=== PATIENT | male | born 1985 | race Caucasian/White ===

== ENCOUNTER 2016-09-13 10:40 | Inpatient (IN) | payer OTHER ==
[~2016-09-13] VITALS: Ht 182.9 cm; Wt 97.6 kg
[2016-09-13 11:20] LABS: MEAN CORPUSCULAR HEMOGLOBIN 30.2 pg (27.0-33.0); MEAN CORPUSCULAR HGB CONC 35.4 g/dl (32.0-36.5); MEAN CORPUSCULAR VOLUME 85.4 fl (80.0-96.0); RED CELL DISTRIBUTION WIDTH 12.7 % (11.5-14.5); WHITE BLOOD COUNT 12.4 K/mm3 (4.0-10.0)
[2016-09-13 11:47] LABS: ALBUMIN 4.6 GM/DL (3.2-5.2); ALBUMIN/GLOBULIN RATIO 1.48 (1.00-1.93); ALKALINE PHOSPHATASE 74 U/L (45-117); ALT/SGPT 33 U/L (12-78); ANION GAP 9 MEQ/L (8-16); AST/SGOT 30 U/L (15-37); BILIRUBIN,DIRECT 0.2 MG/DL (0.0-0.2); BILIRUBIN,TOTAL 1.1 MG/DL (0.2-1.0); BLOOD UREA NITROGEN 16 MG/DL (7-18); CARBON DIOXIDE LEVEL 28 MEQ/L (21-32); CHLORIDE LEVEL 105 MEQ/L (98-107); CREATININE FOR GFR 1.09 MG/DL (0.70-1.30); GLOMERULAR FILTRATION RATE > 60.0 (>60); GLUCOSE, FASTING 96 MG/DL (70-105); POTASSIUM SERUM 3.8 MEQ/L (3.5-5.1); SODIUM LEVEL 142 MEQ/L (136-145); TOTAL PROTEIN 7.7 GM/DL (6.4-8.2)
[2016-09-13 13:01] LABS: AMPHETAMINES LEVEL URINE POSITIVE (NEGATIVE); BENZODIAZEPINES URINE NEGATIVE (NEGATIVE); COCAINE METABOLITE URINE NEGATIVE (NEGATIVE); CONTROL LINE INT CTR LINE PRESENT; METHADONE URINE NEGATIVE (NEGATIVE); OPIATES URINE NEGATIVE (NEGATIVE); TRICYCLIC ANTIDEPRESS URINE NEGATIVE (NEGATIVE)
[2016-09-13] MEDS ORDERED: ACETAMINOPHEN 325 MG TAB As Ordered ONE (22:11)
[2016-09-14] MEDS ORDERED: ACETAMINOPHEN 325 MG TAB As Ordered ONE (05:48)
[2016-09-14] MEDS ORDERED: NICOTINE 21MG/24HR 1 EA TRANSDERMAL As Ordered ONE (13:18)
[2016-09-14] MEDS ORDERED: NAPR250T2 PO (13:30)
--- NOTE | 2016-09-14 16:21 | EDDOCDS ---
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 Units: MEQ/L; Status: F Test: POTASSIUM SERUM; Value: 3.8; Range: 3.5-5.1; Units: MEQ/L; Status: F Test: CHLORIDE LEVEL; Value: 105; Range: 98-107; Units: MEQ/L; Status: F Test: CARBON DIOXIDE LEVEL; Value: 28; Range: 21-32; Units: MEQ/L; Status: F Test: ANION GAP; Value: 9; Range: 8-16; Units: MEQ/L; Status: F Test: CALCIUM LEVEL; Value: 9.0; Range: 8.5-10.1; Units: MG/DL; Status: F Test Note: ; Units are mL/min/1.73 m2 Chronic Kidney Disease Staging per NKF: Stage I & II GFR >=60 Normal to Mildly Decreased Stage III GFR 30-59 Moderately Decreased Stage IV GFR 15-29 Severely Decreased Stage V GFR <15 Very Little GFR Left ESRD GFR <15 on VENDING MACHINE ATTENDANT Lab Order: Complete Blood Count; SPEC'M 09/13/16 11:12 Test: WHITE BLOOD COUNT; Value: 12.4; Range: 4.0-10.0; Abnormal: Above high normal; Units: K/mm3; Status: F Test: RED BLOOD COUNT; Value: 4.92; Range: 4.30-6.10; Units: M/mm3; Status: F Test: HEMOGLOBIN; Value: 14.9; Range: 14.0-18.0; Units: g/dl; Status: F Test: HEMATOCRIT; Value: 42.0; Range: 42.0-52.0; Units: %; Status: F Test: MEAN CORPUSCULAR VOLUME; Value: 85.4; Range: 80.0-96.0; Units: fl; Status: F Test: MEAN CORPUSCULAR HEMOGLOBIN; Value: 30.2; Range: 27.0-33.0; Units: pg; Status: F Test: MEAN CORPUSCULAR HGB CONC; Value: 35.4; Range: 32.0-36.5; Units: g/dl; Status: F Test: RED CELL DISTRIBUTION WIDTH; Value: 12.7; Range: 11.5-14.5; Units: %; Status: F Test: PLATELET COUNT, AUTOMATED; Value: 238; Range: 150-450; Units: k/mm3; Status: F Lab Order: Drug Eval Toxicology ED Only; SPEC'M 09/13/16 12:42 Test: AMPHETAMINES LEVEL URINE; Value: POSITIVE; Range: NEGATIVE; Abnormal: Above high normal; Status: F Test: BARBITURATES URINE; Value: NEGATIVE; Range: NEGATIVE; Status: F Test: BENZODIAZEPINES URINE; Value: NEGATIVE; Range: NEGATIVE; Status: F Test: CANNABINOIDS URINE; Value: NEGATIVE; Range: NEGATIVE; Status: F Test: COCAINE METABOLITE URINE; Value: NEGATIVE; Range: NEGATIVE; Status: F Test: METHADONE URINE; Value: NEGATIVE; Range: NEGATIVE; Status: F Test: OPIATES URINE; Value: NEGATIVE; Range: NEGATIVE; Status: F Test: TRICYCLIC ANTIDEPRESS URINE; Value: NEGATIVE; Range: NEGATIVE; Status: F Test Note: ; ALL PRESUMPTIVE POSITIVE FINDINGS ARE UNCONFIRMED NORMAL VALUES THRESHOLD IN NG/ML AMPHETAMINES 1000 METHAMPHETAMINES 1000 BARBITURATES 300 BENZODIAZEPINES 300 CANNABINOIDS (THC) 50 COCAINE METABOLITE 300 METHADONE 300 OPIATES 300 PHENCYCLIDINE 25 TRICYCLIC ANTIDEPRESSANTS 1000 RESULTS ARE FOR MEDICAL PURPOSES ONLY. ALL URINE SPECIMENS WILL BE SAVED FOR 3 DAYS. IF CONFIRMATION OF A PRESUMPTIVE POSTIVE SCREEN RESULT IS DESIRED, CALL CHEMISTRY ([phone]) AND REQUEST URINE TO BE SENT TO REFERENCE LAB. FOR A LIST OF CLOSELY RELATED COMPOUNDS PLEASE CALL THE LAB. Lab Order: Ethyl Alcohol (ethanol); SPEC'M 09/13/16 11:12 Test: ETHYL ALCOHOL (ETHANOL); Value: < 0.003; Range: 0.000-0.010; Units: %; Status: F Lab Order: Liver Profile; SPEC'M 09/13/16 11:12 Test: AST/SGOT; Value: 30; Range: 15-37; Units: U/L; Status: F Test: ALT/SGPT; Value: 33; Range: 12-78; Units: U/L; Status: F Test: ALKALINE PHOSPHATASE; Value: 74; Range: 45-117; Units: U/L; Status: F Test: BILIRUBIN,TOTAL; Value: 1.1; Range: 0.2-1.0; Abnormal: Above high normal; Units: MG/DL; Status: F Test: BILIRUBIN,DIRECT; Value: 0.2; Range: 0.0-0.2; Units: MG/DL; Status: F Test: TOTAL PROTEIN; Value: 7.7; Range: 6.4-8.2; Units: GM/DL; Status: F Test: ALBUMIN; Value: 4.6; Range: 3.2-5.2; Units: GM/DL; Status: F Test: ALBUMIN/GLOBULIN RATIO; Value: 1.48; Range: 1.00-1.93; Status: F Lab Order: Salicylate Level; SPEC'M 09/13/16 11:12 Test: SALICYLATE LEVEL; Value: < 1.7; Range: 5.0-30.0; Abnormal: Below low normal; Units: MG/DL; Status: F Lab Order: Thyroid Stimulating Hormone; SPEC'M 09/13/16 11:12 Test: THYROID STIMULATING HORMONE; Value: 1.240; Range: 0.358-3.740; Units: uIU/ML; Status: F Outcome: 09/14 13:06 Decision to Hospitalize by Provider. br1 16:13 Discharge Assessment: Patient awake, alert and oriented x 3. No cognitive and/or mk4 functional deficits noted. Patient verbalized understanding of disposition instructions. Patient awake and alert. patient administered narcotics - no. The following High Risk Discharge criteria are identified: None. Admitted to Psych accompanied by tech, via wheelchair, with chart. Condition: stable. No special radiology studies were completed. Admission hand-off: Report Faxed Fax receipt verified by VALERIA. 16:20 Patient left the ED. pjf Signatures: Alice Lombardo, Plaster Caster Unit deg Amanda Ventura, PSA PSA ca Pee Kelly, PSA PSA ac Maryam, Owen, Security Aide Securpf Rachelle Valdovinos, PSA PSA ml4 Mike Winchester, TEST ADMINISTRATOR TEST ADMINISTRATOR kb5 Jarred Serrato, DO DO mm11 Eugene Schilling MD MD br1 Jarred Guzman, RN RN ml6 Jose Jefferson PA PA btw Fuller, Desiree,RN RN dsf Kev Allred Dustin dpm Zoey Quinonez, TEST ADMINISTRATOR TEST ADMINISTRATOR tmm1 Mony Walton, TEST ADMINISTRATOR TEST ADMINISTRATOR elp Isabel Becerar RN RN mk4 Giovana Beckwith, TEST ADMINISTRATOR TEST ADMINISTRATOR jlf Niya Ventura,BUSINESS TECHNOLOGY ANALYST BUSINESS TECHNOLOGY ANALYST ka4 Shiela Pike RN RN ko2 Lidia Aguilar RN RN af2 Iftikhar Garcia, Reg Reg mpb Corrections: (The following items were deleted from the chart) 09/13 10:45 10:43 BP 153 / 71; Pulse 74bpm; Resp 18bpm; Pulse Ox 9%; Temp 98.8F; 97.52 kg; Height elp 72 in.; BMI: 29.1; Pain 0/10; elp MTDD
--- NOTE | 2016-09-14 16:21 | EDDOCDS ---
Physician Documentation [facility] Name: Jamil Elizalde Age: 31 yrs Sex: Male : 1985 Arrival Date: 09/13/2016 Time: 10:40 Bed OBSERVATION Private MD: Mon[facility] Disposition: 09/14/16 13:06 Hospitalization ordered by Narinder Houser for Inpatient Admission. Preliminary diagnosis is Major depressive disorder, single episode. - Bed requested for Admit. - Status is Inpatient Admission. pjf - Condition is Stable. - Problem is new. - Symptoms are unchanged. Historical: - Allergies: no known allergies; - Home Meds: 1. none - PMHx: none; - PSHx: none; - Social history: Smoking status: Patient uses tobacco products, heavy tobacco smoker. Patient uses alcohol on a daily basis. claims drinking about a 6 pack/day. patient/guardian reports recent binge of alcohol consumption. No barriers to communication noted, Speaks appropriately for age. - Family history: Not pertinent. - : The pt / caregiver states he / she is not on anticoagulants. Home medication list is obtained from the patient. - Exposure Risk Screening:: None identified. Vital Signs: 09/13 10:43 BP 153 / 71; Pulse 74; Resp 18; Temp 98.8(O); Pulse Ox 99% on R/A; Weight 97.52 kg / elp 214.99 lbs; Height 72 in. (182.88 cm); Pain 0/10; 22:07 BP 151 / 84 LA Sitting (auto/reg); Pulse 66 MON; Resp 16; Temp 98.1; Pulse Ox 98% on ka4 R/A; Pain 4/10; 09/14 05:40 BP 134 / 85; Pulse 64; Resp 18; Temp 96.9(T); Pulse Ox 98% on R/A; Pain 6/10; kb5 16:12 BP 157 / 83; Pulse 66; Resp 18; Pulse Ox 98% on R/A; mk4 09/13 10:43 Body Mass Index 29.16 (97.52 kg, 182.88 cm) elp 09/13 22:07 toothache ka4 MDM: 10:48 Consult PFS/PSA/Converting Technician ordered. btw 10:48 Consult PFS/PSA/Converting Technician: Patient's case requires discussion with on-call btw Psychiatrist ordered. 10:48 PSA/PFS to call Nursing Fws Faculty Assistant, to enter patient data on [place] Safe [place] if patient btw involuntarily admitted or transferred for SI or HI ordered. 10:48 Confirm accurate psychiatric medication list and times of last dosage ordered. btw 10:48 Detain Pt Until Medically/PFS Cleared ordered. btw 10:49 Acetaminophen Level Ordered. EDMS 10:49 Basic Metabolic Profile Ordered. EDMS 10:49 Complete Blood Count Ordered. EDMS 10:49 Drug Eval Toxicology ED Only Ordered. EDMS 10:49 Ethyl Alcohol (ethanol) Ordered. EDMS 10:49 Liver Profile Ordered. EDMS 10:49 Salicylate Level Ordered. EDMS 10:49 Thyroid Stimulating Hormone Ordered. EDMS 11:14 Consult PFS/PSA/Converting Technician complete. dsf 11:14 Consult PFS/PSA/Converting Technician: Patient's case requires discussion with on-call dsf Psychiatrist complete. 11:14 PSA/PFS to call Nursing Fws Faculty Assistant, to enter patient data [place] Safe [place] if patient dsf involuntarily admitted or transferred for SI or HI complete. 11:18 REGULAR DIET PLASTIC MCADAMS+DIET ordered. EDMS 11:38 Financial registration complete. mpb 11:54 [facility] Payment Agreement was scanned into [employer] and attached to record. mpb 13:10 Acetaminophen Level Reviewed. btw 13:10 Complete Blood Count Reviewed. btw 13:10 Drug Eval Toxicology ED Only Reviewed. btw 13:10 Liver Profile Reviewed. btw 13:10 Salicylate Level Reviewed. btw 13:10 Basic Metabolic Profile Reviewed. btw 13:10 Ethyl Alcohol (ethanol) Reviewed. btw 13:10 Thyroid Stimulating Hormone Reviewed. btw 16:39 REGULAR DIET PLASTIC MCADAMS+DIET ordered. EDMS 22:06 Acetaminophen Tablet 650 mg PO once ordered. mm11 09/14 04:34 REGULAR DIET ROOM SERVICE ED+DIET ordered. EDMS 05:45 Acetaminophen Tablet 650 mg PO once ordered. mm11 11:06 REGULAR DIET PLASTIC MCADAMS+DIET ordered. EDMS 12:55 Admit to [facility]: ordered. EDMS 12:59 [facility] Legal paperwork was scanned into [employer] and attached to record. ml4 13:14 Nicotine Patch 21 mg/24 hr 1 applic Transdermal once ordered. mk4 Administered Medications: 01/08 22:14 Drug: Acetaminophen 650 mg [acetaminophen 325 mg tablet (2 tabs)] Route: PO; ka4 09/14 01:56 Follow up: Response: Pain is decreased 4 05:55 Drug: Acetaminophen 650 mg [acetaminophen 325 mg tablet (2 tabs)] Route: PO; ka4 13:29 Drug: Nicotine 1 applic [nicotine 21 mg/24 hr daily transdermal patch (1 patches)] 4 Route: Transdermal; Site: left upper arm; Signatures: Dispatcher [employer] EDMS Owen Francisco, Security Aide Securpjf Rachelle Valdovinos, PSA PSA ml4 Jarred Serrato, DO DO mm11 Eugene Schilling MD MD br1 Jarred Guzman, RN RN ml6 Jose Jefferson PA PA btw Fuller, Desiree,RN RN dsf Isabel Becerra RN RN mk4 Iftikhar Garcia, Reg Reg mpNiya Carbone LPN ka4 The chart was reviewed and I authenticate all verbal orders and agree with the evaluation and treatment provided.Corrections: (The following items were deleted from the chart) 04:34 04:33 REGULAR DIET ROOM SERVICE ED+DIET ordered. EDMS EDMS Attachments: 09/13 11:54 [facility] Payment Agreement mpb MTDD
[2016-09-14 17:37] VITALS: BP 158/88
[2016-09-14] MEDS ORDERED: LORazepam 2 MG TAB PO PRN (18:15)
[2016-09-14] MEDS ORDERED: traZODone 50 MG TAB PO PRN (18:15)
[2016-09-14] MEDS ORDERED: MAALOX 30 ML SUSP *UDC PO PRN (18:30)
[2016-09-14] MEDS: MULTIVITAMINS/MINERALS THERAP 1 TAB PO SCH (22:01)
[2016-09-14] MEDS: FOLIC ACID 1 MG TAB PO SCH (22:01)
[2016-09-14] MEDS: THIAMINE 100 MG TAB PO SCH (22:01)
[2016-09-15 06:03] VITALS: BP 146/89
[2016-09-15] MEDS: MULTIVITAMINS/MINERALS THERAP 1 TAB PO SCH (08:49)
[2016-09-15] MEDS: THIAMINE 100 MG TAB PO SCH ×2 (08:49→22:23)
[2016-09-15] MEDS: FOLIC ACID 1 MG TAB PO SCH (08:49)
[2016-09-15] MEDS: IBUPROFEN 400 MG TAB PO PRN (08:50)
--- NOTE | 2016-09-15 11:32 | HPEPDOC ---
Medical History and Physical Date of Admission Sep 14, 2016 at 16:20 History and Physical PCP: [facility] ATTENDING: Dr. Chilo German HPI: 31yoM admitted to [facility] for MDD, being medically examined today. Patient states that prior to admission he was drinking heavily. He had apparently fallen prior to admission and broke 2 of his teeth. He is reporting some mild pain and sensitivity with cold temperatures in the right upper lateral incisor and right central incisor with eating or drinking. Denies any fevers, chills, weakness, fatigue, BROCK, CP, SOB, cough, palpitations, abdominal pain, N/V/D or changes in bowel or bladder habits. PMHx: Depression PSHX: Benign cyst removed upper back [place] teeth extraction Circumcision 19 yo SOCHX: Resides in: [place], From [facility]. 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 On weekends a bottle of liquor and several beers per day, drinking to the point of blackout. Illicit Drugs: Denies IV Drug Use: Denies Tattoos done unprofessionally: Denies FAMHX: Mother: Alive, history of alcoholism Father: Unknown, history of alcoholism Siblings: None Children: None Unexpected deaths due to medical reasons: None. ROS: As noted in HPI, otherwise 11pt ROS of systems reviewed and unremarkable PE: GEN: 31yoM, appears stated age. Well-nourished, well developed. No acute distress. Alert and oriented x 3. Pleasant, interactive. HEENT: Normocephalic, atraumatic. Pupils are equal, round, and reactive to light. Extraocular movements are intact. No nystagmus appreciated. Sclera are nonicteric. Conjunctiva without injection. Nose midline. Nasal turbinates without bogginess. EACs both patent BL. TMs both visualized and roberts with good cone of light, no bulging or erythema. No facial asymmetry. Moist mucous membranes. Dentition with broken teeth noted Rt lateral and central upper incisor. Pharynx pink and moist, no cobblestoning. Neck supple, trachea midline. No lymphadenopathy or thyromegaly appreciated. CHEST: Regular rate and rhythm, +S1, +S2 LUNGS: Clear to auscultation bilaterally. No wheezes, rales, or rhonchi. Breathing appears symmetric and easy. Patient is speaking in full sentences. No accessory muscle use. ABD: Round, soft, non-tender, non-distended. +Bowel sounds throughout. No rebound or guarding. No costovertebral angle tenderness. EXT: Pulses 2+ bilaterally dorsalis pedis and radial. No lower extremity edema appreciated. SKIN: [place], dry, warm. Capillary refill <2sec. No rashes. NEURO: Alert and oriented x 3. Cranial nerves III-XII are intact. No focal deficits appreciated. EKG: pending A&P: 31yoM admitted to [facility] for MDD 1. Psych. Plan per Psychiatry. Obtain baseline EKG to assure the safety of psychiatric medications as they can prolong the QT interval. 2. Nicotine dependence. Patch available. 3. Alcohol use. Per Psychiatry. Continue multivitamin, thiamine and folic acid supplements. 4. Follow up with PCP on discharge. [facility]. 5. Dental pain, related to dental injury. Will need follow-up with dental provider at discharge. Continue with ibuprofen as needed. 6. Leukocytosis. Patient is asymptomatic. Afebrile. Recheck CBC 7. Staff member present throughout exam. parminder Rivers. Vital Signs Vital Signs Label Value Date Time Patient Temperature 97.5 degrees F 09/15/16 0603 Temperature Source Tympanic 09/15/16 0603 Pulse 65 09/15/16 0603 Respiratory Rate 18 bpm 09/15/16 0603 Blood Pressure Assessment 146/89 (108) 09/15/16 0603 Laboratory Data Labs 24H Item Value Date Time White Blood Count 12.4 K/mm3 H 09/13/16 1112 Red Blood Count 4.92 M/mm3 09/13/16 1112 Hemoglobin 14.9 g/dl 09/13/16 1112 Hematocrit 42.0 % 09/13/16 1112 Mean Corpuscular Volume 85.4 fl 09/13/16 1112 Mean Corpuscular Hemoglobin 30.2 pg 09/13/16 1112 Mean Corpuscular Hemoglobin Concent 35.4 g/dl 09/13/16 1112 Red Cell Distribution Width 12.7 % 09/13/16 1112 Platelet Count 238 k/mm3 09/13/16 1112 Sodium Level 142 MEQ/L 09/13/16 1112 Potassium Level 3.8 MEQ/L 09/13/16 1112 Chloride Level 105 MEQ/L 09/13/16 1112 Carbon Dioxide Level 28 MEQ/L 09/13/16 1112 Anion Gap 9 MEQ/L 09/13/16 1112 Blood Urea Nitrogen 16 MG/DL 09/13/16 1112 Creatinine 1.09 MG/DL 09/13/16 1112 Glomerular Filtration Rate > 60.0 09/13/16 1112 Fasting Glucose 96 MG/DL 09/13/16 1112 Calcium Level 9.0 MG/DL 09/13/16 1112 Total Bilirubin 1.1 MG/DL H 09/13/16 1112 Direct Bilirubin 0.2 MG/DL 09/13/16 1112 Aspartate Amino Transf (AST/SGOT) 30 U/L 09/13/16 1112 Alanine Aminotransferase (ALT/SGPT) 33 U/L 09/13/16 1112 Alkaline Phosphatase 74 U/L 09/13/16 1112 Total Protein 7.7 GM/DL 09/13/16 1112 Albumin 4.6 GM/DL 09/13/16 1112 Albumin/Globulin Ratio 1.48 09/13/16 1112 Thyroid Stimulating Hormone (TSH) 1.240 uIU/ML 09/13/16 1112 Salicylates Level < 1.7 MG/DL L 09/13/16 1112 Urine Opiates Screen NEGATIVE 09/13/16 1242 Urine Methadone Screen NEGATIVE 09/13/16 1242 Acetaminophen Level < 2.0 UG/ML L 09/13/16 1112 Urine Barbiturates, Qualitative NEGATIVE 09/13/16 1242 Urine Tricyclic Antidepressants NEGATIVE 09/13/16 1242 Urine Amphetamine Level POSITIVE H 09/13/16 1242 Urine Benzodiazepines Screen NEGATIVE 09/13/16 1242 Urine Cocaine Metabolite NEGATIVE 09/13/16 1242 Urine Cannabinoids NEGATIVE 09/13/16 1242 Ethyl Alcohol Level < 0.003 % 09/13/16 1112 Home Medications Scheduled PRN Naproxen (Naproxen) 250 Mg Tab 250 MG PO PRN PRN PRN PAIN Allergies Coded Allergies: No Known Allergies (Unverified , 09/14/16) Sandra Lewis Sep 15, 2016 11:32
[2016-09-15 11:58] VITALS: BP 143/73
[2016-09-15 18:00] VITALS: BP 117/62
--- NOTE | 2016-09-15 20:48 | ECGEPIP ---
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
[2016-09-15 20:50] VITALS: BP 117/62
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
[2016-09-15] MEDS: PARoxetine 20 MG TAB PO SCH (22:22)
[2016-09-16 06:32] VITALS: BP 127/81
[2016-09-16 07:58] LABS: MEAN CORPUSCULAR HGB CONC 33.9 g/dl (32.0-36.5); MEAN CORPUSCULAR VOLUME 85.6 fl (80.0-96.0); RED CELL DISTRIBUTION WIDTH 13.3 % (11.5-14.5)
[2016-09-16 08:00] VITALS: BP 127/81
[2016-09-16] MEDS: FOLIC ACID 1 MG TAB PO SCH (09:12)
[2016-09-16] MEDS: THIAMINE 100 MG TAB PO SCH ×2 (09:12→21:01)
[2016-09-16] MEDS: MULTIVITAMINS/MINERALS THERAP 1 TAB PO SCH (09:12)
[2016-09-16] MEDS: IBUPROFEN 400 MG TAB PO PRN (09:14)
[2016-09-16 12:00] VITALS: BP 120/65
--- NOTE | 2016-09-16 17:21 | EDDOCDS ---
Physician Documentation [facility] Name: Jamil Elizalde Age: 31 yrs Sex: Male : 1985 Arrival Date: 09/13/2016 Time: 10:40 Bed OBSERVATION Private MD: Monik [facility] Disposition: 09/14/16 13:06 Hospitalization ordered by Narinder Houser for Inpatient Admission. Preliminary diagnosis is Major depressive disorder, single episode. - Bed requested for Admit. - Status is Inpatient Admission. pjf - Condition is Stable. - Problem is new. - Symptoms are unchanged. Historical: - Allergies: no known allergies; - Home Meds: 1. none - PMHx: none; - PSHx: none; - Social history: Smoking status: Patient uses tobacco products, heavy tobacco smoker. Patient uses alcohol on a daily basis. claims drinking about a 6 pack/day. patient/guardian reports recent binge of alcohol consumption. No barriers to communication noted, Speaks appropriately for age. - Family history: Not pertinent. - : The pt / caregiver states he / she is not on anticoagulants. Home medication list is obtained from the patient. - Exposure Risk Screening:: None identified. Vital Signs: 09/13 10:43 BP 153 / 71; Pulse 74; Resp 18; Temp 98.8(O); Pulse Ox 99% on R/A; Weight 97.52 kg / elp 214.99 lbs; Height 72 in. (182.88 cm); Pain 0/10; 22:07 BP 151 / 84 LA Sitting (auto/reg); Pulse 66 MON; Resp 16; Temp 98.1; Pulse Ox 98% on ka4 R/A; Pain 4/10; 09/14 05:40 BP 134 / 85; Pulse 64; Resp 18; Temp 96.9(T); Pulse Ox 98% on R/A; Pain 6/10; kb5 16:12 BP 157 / 83; Pulse 66; Resp 18; Pulse Ox 98% on R/A; mk4 09/13 10:43 Body Mass Index 29.16 (97.52 kg, 182.88 cm) elp 09/13 22:07 toothache ka4 MDM: 10:48 Consult PFS/PSA/Aircraft Cylinder Mechanic ordered. btw 10:48 Consult PFS/PSA/Aircraft Cylinder Mechanic: Patient's case requires discussion with on-call btw Psychiatrist ordered. 10:48 PSA/PFS to call Nursing Telephone Triage Nurse, to enter patient data on [place] Safe [place] if patient btw involuntarily admitted or transferred for SI or HI ordered. 10:48 Confirm accurate psychiatric medication list and times of last dosage ordered. btw 10:48 Detain Pt Until Medically/PFS Cleared ordered. btw 10:49 Acetaminophen Level Ordered. EDMS 10:49 Basic Metabolic Profile Ordered. EDMS 10:49 Complete Blood Count Ordered. EDMS 10:49 Drug Eval Toxicology ED Only Ordered. EDMS 10:49 Ethyl Alcohol (ethanol) Ordered. EDMS 10:49 Liver Profile Ordered. EDMS 10:49 Salicylate Level Ordered. EDMS 10:49 Thyroid Stimulating Hormone Ordered. EDMS 11:14 Consult PFS/PSA/Aircraft Cylinder Mechanic complete. dsf 11:14 Consult PFS/PSA/Aircraft Cylinder Mechanic: Patient's case requires discussion with on-call dsf Psychiatrist complete. 11:14 PSA/PFS to call Nursing Telephone Triage Nurse, to enter [place] data [place] if patient dsf involuntarily admitted or transferred for SI or HI complete. 11:18 REGULAR DIET PLASTIC MCADAMS+DIET ordered. EDMS 11:38 Financial registration complete. mpb 11:54 [facility] Payment Agreement was scanned into [employer]r and attached to record. mpb 13:10 Acetaminophen Level Reviewed. btw 13:10 Complete Blood Count Reviewed. btw 13:10 Drug Eval Toxicology ED Only Reviewed. btw 13:10 Liver Profile Reviewed. btw 13:10 Salicylate Level Reviewed. btw 13:10 Basic Metabolic Profile Reviewed. btw 13:10 Ethyl Alcohol (ethanol) Reviewed. btw 13:10 Thyroid Stimulating Hormone Reviewed. btw 16:39 REGULAR DIET PLASTIC MCADAMS+DIET ordered. EDMS 22:06 Acetaminophen Tablet 650 mg PO once ordered. mm11 09/14 04:34 REGULAR DIET ROOM SERVICE ED+DIET ordered. EDMS 05:45 Acetaminophen Tablet 650 mg PO once ordered. mm11 11:06 REGULAR DIET PLASTIC MCADAMS+DIET ordered. EDMS 12:55 Admit to [facility]: ordered. EDMS 12:59 [facility] Legal paperwork was scanned into rumr and attached to record. ml4 13:14 Nicotine Patch 21 mg/24 hr 1 applic Transdermal once ordered. mk4 09/15 13:53 T-Sheet-- Draft Copy was scanned into rumr and attached to record. gb Administered Medications: 09/13 22:14 Drug: Acetaminophen 650 mg [acetaminophen 325 mg tablet (2 tabs)] Route: PO; ka4 09/14 01:56 Follow up: Response: Pain is decreased ka4 05:55 Drug: Acetaminophen 650 mg [acetaminophen 325 mg tablet (2 tabs)] Route: PO; ka4 13:29 Drug: Nicotine 1 applic [nicotine 21 mg/24 hr daily transdermal patch (1 patches)] 4 Route: Transdermal; Site: left upper arm; Signatures: Dispatcher [employer] EDMS Stephanie Ovalle, Reg Reg gb Fersheronzo, Owen, Security Aide Securpjf Rachelle Valdovinos, PSA PSA ml4 Jarred Serrato, DO DO mm11 Eugene Schilling MD MD br1 Jarred Guzman, RN RN ml6 Jose Jefferson PA PA Gudelia Ornelas,RN RN dsf Isabel Becerra RN RN mk4 Iftikhar Garcia, Reg Reg mpb Niya Ventura LPN ka4 The chart was reviewed and I authenticate all verbal orders and agree with the evaluation and treatment provided.Corrections: (The following items were deleted from the chart) 04:34 04:33 REGULAR DIET ROOM SERVICE ED+DIET ordered. EDOR EDOR Attachments: 09/13 11:54 [facility] Payment Agreement mpb 09/15 13:53 T-Sheet-- Draft Copy gb Chart Complete MTDD
--- NOTE | 2016-09-16 17:21 | EDDOCDS ---
Physician Documentation [facility] Name: Jamil Elizalde Age: 31 yrs Sex: Male : 1985 Arrival Date: 09/13/2016 Time: 10:40 Bed OBSERVATION Private MD: Monik [facility] Disposition: 09/14/16 13:06 Hospitalization ordered by Narinder Houser for Inpatient Admission. Preliminary diagnosis is Major depressive disorder, single episode. - Bed requested for Admit. - Status is Inpatient Admission. pjf - Condition is Stable. - Problem is new. - Symptoms are unchanged. Historical: - Allergies: no known allergies; - Home Meds: 1. none - PMHx: none; - PSHx: none; - Social history: Smoking status: Patient uses tobacco products, heavy tobacco smoker. Patient uses alcohol on a daily basis. claims drinking about a 6 pack/day. patient/guardian reports recent binge of alcohol consumption. No barriers to communication noted, Speaks appropriately for age. - Family history: Not pertinent. - : The pt / caregiver states he / she is not on anticoagulants. Home medication list is obtained from the patient. - Exposure Risk Screening:: None identified. Vital Signs: 09/13 10:43 BP 153 / 71; Pulse 74; Resp 18; Temp 98.8(O); Pulse Ox 99% on R/A; Weight 97.52 kg / elp 214.99 lbs; Height 72 in. (182.88 cm); Pain 0/10; 22:07 BP 151 / 84 LA Sitting (auto/reg); Pulse 66 MON; Resp 16; Temp 98.1; Pulse Ox 98% on ka4 R/A; Pain 4/10; 09/14 05:40 BP 134 / 85; Pulse 64; Resp 18; Temp 96.9(T); Pulse Ox 98% on R/A; Pain 6/10; kb5 16:12 BP 157 / 83; Pulse 66; Resp 18; Pulse Ox 98% on R/A; mk4 09/13 10:43 Body Mass Index 29.16 (97.52 kg, 182.88 cm) elp 09/13 22:07 toothache ka4 MDM: 10:48 Consult PFS/PSA/Otm Consultant ordered. btw 10:48 Consult PFS/PSA/Otm Consultant: Patient's case requires discussion with on-call btw Psychiatrist ordered. 10:48 PSA/PFS to call Nursing Instructor Looping, to [place] if patient btw involuntarily admitted or transferred for SI or HI ordered. 10:48 Confirm accurate psychiatric medication list and times of last dosage ordered. btw 10:48 Detain Pt Until Medically/PFS Cleared ordered. btw 10:49 Acetaminophen Level Ordered. EDMS 10:49 Basic Metabolic Profile Ordered. EDMS 10:49 Complete Blood Count Ordered. EDMS 10:49 Drug Eval Toxicology ED Only Ordered. EDMS 10:49 Ethyl Alcohol (ethanol) Ordered. EDMS 10:49 Liver Profile Ordered. EDMS 10:49 Salicylate Level Ordered. EDMS 10:49 Thyroid Stimulating Hormone Ordered. EDMS 11:14 Consult PFS/PSA/Otm Consultant complete. dsf 11:14 Consult PFS/PSA/Otm Consultant: Patient's case requires discussion with on-call dsf Psychiatrist complete. 11:14 PSA/PFS to call Nursing Instructor Looping, to [place] if patient dsf involuntarily admitted or transferred for SI or HI complete. 11:18 REGULAR DIET PLASTIC MCADAMS+DIET ordered. EDMS 11:38 Financial registration complete. mpb 11:54 [facility] Payment Agreement was scanned into [employer] and attached to record. mpb 13:10 Acetaminophen Level Reviewed. btw 13:10 Complete Blood Count Reviewed. btw 13:10 Drug Eval Toxicology ED Only Reviewed. btw 13:10 Liver Profile Reviewed. btw 13:10 Salicylate Level Reviewed. btw 13:10 Basic Metabolic Profile Reviewed. btw 13:10 Ethyl Alcohol (ethanol) Reviewed. btw 13:10 Thyroid Stimulating Hormone Reviewed. btw 16:39 REGULAR DIET PLASTIC MCADAMS+DIET ordered. EDMS 22:06 Acetaminophen Tablet 650 mg PO once ordered. mm11 09/14 04:34 REGULAR DIET ROOM SERVICE ED+DIET ordered. EDMS 05:45 Acetaminophen Tablet 650 mg PO once ordered. mm11 11:06 REGULAR DIET PLASTIC MCADAMS+DIET ordered. EDMS 12:55 Admit to [facility]: ordered. EDMS 12:59 [facility] Legal paperwork was scanned into [employer] and attached to record. ml4 13:14 Nicotine Patch 21 mg/24 hr 1 applic Transdermal once ordered. mk4 09/15 13:53 T-Sheet-- Draft Copy was scanned into [employer] and attached to record. gb Administered Medications: 09/13 22:14 Drug: Acetaminophen 650 mg [acetaminophen 325 mg tablet (2 tabs)] Route: PO; ka4 09/14 01:56 Follow up: Response: Pain is decreased ka4 05:55 Drug: Acetaminophen 650 mg [acetaminophen 325 mg tablet (2 tabs)] Route: PO; ka4 13:29 Drug: Nicotine 1 applic [nicotine 21 mg/24 hr daily transdermal patch (1 patches)] 4 Route: Transdermal; Site: left upper arm; Signatures: Dispatcher [employer] EDMS Stephanie Ovalle, Reg Reg gb Fersheronzo, Owen, Security Aide Securpjf Rachelle Valdovinos, PSA PSA ml4 Jarred Serrato, DO DO mm11 Eugene Schilling MD MD br1 Jarred Guzman, RN RN ml6 Jose Jefferson PA PA Gudelia Ornelas,RN RN dsf Isabel Becerra RN RN mk4 Iftikhar Garcia, Reg Reg mpb Niya Ventura LPN ka4 The chart was reviewed and I authenticate all verbal orders and agree with the evaluation and treatment provided.Corrections: (The following items were deleted from the chart) 04:34 04:33 REGULAR DIET ROOM SERVICE ED+DIET ordered. EDAR EDAR Attachments: 09/13 11:54 [facility] Payment Agreement mpb 09/15 13:53 T-Sheet-- Draft Copy gb Chart Complete MTDD
--- NOTE | 2016-09-16 17:21 | EDDOCDS ---
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 Units: MG/DL; Status: F Test: GLOMERULAR FILTRATION RATE; Value: > 60.0; Range: >60; Status: F Test: SODIUM LEVEL; Value: 142; Range: 136-145; Units: MEQ/L; Status: F Test: POTASSIUM SERUM; Value: 3.8; Range: 3.5-5.1; Units: MEQ/L; Status: F Test: CHLORIDE LEVEL; Value: 105; Range: 98-107; Units: MEQ/L; Status: F Test: CARBON DIOXIDE LEVEL; Value: 28; Range: 21-32; Units: MEQ/L; Status: F Test: ANION GAP; Value: 9; Range: 8-16; Units: MEQ/L; Status: F Test: CALCIUM LEVEL; Value: 9.0; Range: 8.5-10.1; Units: MG/DL; Status: F Test Note: ; Units are mL/min/1.73 m2 Chronic Kidney Disease Staging per NKF: Stage I & II GFR >=60 Normal to Mildly Decreased Stage III GFR 30-59 Moderately Decreased Stage IV GFR 15-29 Severely Decreased Stage V GFR <15 Very Little GFR Left ESRD GFR <15 on PUBLISHING MANAGER Lab Order: Complete Blood Count; [facility] 09/13/16 11:12 Test: WHITE BLOOD COUNT; Value: 12.4; Range: 4.0-10.0; Abnormal: Above high normal; Units: K/mm3; Status: F Test: RED BLOOD COUNT; Value: 4.92; Range: 4.30-6.10; Units: M/mm3; Status: F Test: HEMOGLOBIN; Value: 14.9; Range: 14.0-18.0; Units: g/dl; Status: F Test: HEMATOCRIT; Value: 42.0; Range: 42.0-52.0; Units: %; Status: F Test: MEAN CORPUSCULAR VOLUME; Value: 85.4; Range: 80.0-96.0; Units: fl; Status: F Test: MEAN CORPUSCULAR HEMOGLOBIN; Value: 30.2; Range: 27.0-33.0; Units: pg; Status: F Test: MEAN CORPUSCULAR HGB CONC; Value: 35.4; Range: 32.0-36.5; Units: g/dl; Status: F Test: RED CELL DISTRIBUTION WIDTH; Value: 12.7; Range: 11.5-14.5; Units: %; Status: F Test: PLATELET COUNT, AUTOMATED; Value: 238; Range: 150-450; Units: k/mm3; Status: F Lab Order: Drug Eval Toxicology ED Only; SPEC'M 09/13/16 12:42 Test: AMPHETAMINES LEVEL URINE; Value: POSITIVE; Range: NEGATIVE; Abnormal: Above high normal; Status: F Test: BARBITURATES URINE; Value: NEGATIVE; Range: NEGATIVE; Status: F Test: BENZODIAZEPINES URINE; Value: NEGATIVE; Range: NEGATIVE; Status: F Test: CANNABINOIDS URINE; Value: NEGATIVE; Range: NEGATIVE; Status: F Test: COCAINE METABOLITE URINE; Value: NEGATIVE; Range: NEGATIVE; Status: F Test: METHADONE URINE; Value: NEGATIVE; Range: NEGATIVE; Status: F Test: OPIATES URINE; Value: NEGATIVE; Range: NEGATIVE; Status: F Test: TRICYCLIC ANTIDEPRESS URINE; Value: NEGATIVE; Range: NEGATIVE; Status: F Test Note: ; ALL PRESUMPTIVE POSITIVE FINDINGS ARE UNCONFIRMED NORMAL VALUES THRESHOLD IN NG/ML AMPHETAMINES 1000 METHAMPHETAMINES 1000 BARBITURATES 300 BENZODIAZEPINES 300 CANNABINOIDS (THC) 50 COCAINE METABOLITE 300 METHADONE 300 OPIATES 300 PHENCYCLIDINE 25 TRICYCLIC ANTIDEPRESSANTS 1000 RESULTS ARE FOR MEDICAL PURPOSES ONLY. ALL URINE SPECIMENS WILL BE SAVED FOR 3 DAYS. IF CONFIRMATION OF A PRESUMPTIVE POSTIVE SCREEN RESULT IS DESIRED, CALL CHEMISTRY ([phone]) AND REQUEST URINE TO BE SENT TO REFERENCE LAB. FOR A LIST OF CLOSELY RELATED COMPOUNDS PLEASE CALL THE LAB. Lab Order: Ethyl Alcohol (ethanol); SPEC'M 09/13/16 11:12 Test: ETHYL ALCOHOL (ETHANOL); Value: < 0.003; Range: 0.000-0.010; Units: %; Status: F Lab Order: Liver Profile; SPEC'M 09/13/16 11:12 Test: AST/SGOT; Value: 30; Range: 15-37; Units: U/L; Status: F Test: ALT/SGPT; Value: 33; Range: 12-78; Units: U/L; Status: F Test: ALKALINE PHOSPHATASE; Value: 74; Range: 45-117; Units: U/L; Status: F Test: BILIRUBIN,TOTAL; Value: 1.1; Range: 0.2-1.0; Abnormal: Above high normal; Units: MG/DL; Status: F Test: BILIRUBIN,DIRECT; Value: 0.2; Range: 0.0-0.2; Units: MG/DL; Status: F Test: TOTAL PROTEIN; Value: 7.7; Range: 6.4-8.2; Units: GM/DL; Status: F Test: ALBUMIN; Value: 4.6; Range: 3.2-5.2; Units: GM/DL; Status: F Test: ALBUMIN/GLOBULIN RATIO; Value: 1.48; Range: 1.00-1.93; Status: F Lab Order: Salicylate Level; SPEC'M 09/13/16 11:12 Test: SALICYLATE LEVEL; Value: < 1.7; Range: 5.0-30.0; Abnormal: Below low normal; Units: MG/DL; Status: F Lab Order: Thyroid Stimulating Hormone; SPEC'M 09/13/16 11:12 Test: THYROID STIMULATING HORMONE; Value: 1.240; Range: 0.358-3.740; Units: uIU/ML; Status: F Outcome: 09/14 13:06 Decision to Hospitalize by Provider. br1 16:13 Discharge Assessment: Patient awake, alert and oriented x 3. No cognitive and/or mk4 functional deficits noted. Patient verbalized understanding of disposition instructions. Patient awake and alert. patient administered narcotics - no. The following High Risk Discharge criteria are identified: None. Admitted to Psych accompanied by tech, via wheelchair, with chart. Condition: stable. No special radiology studies were completed. Admission hand-off: Report Faxed Fax receipt verified by VALERIA. 16:20 Patient left the ED. pjf Signatures: Alice Lombardo, Casing Blower Unit deg Amanda Ventura, PSA PSA ca Pee Kelly, PSA PSA ac Stephanie Ovalle, Reg Reg gb Maryam, Owen, Security Aide Securpjf Rachelle Valdovinos, PSA PSA ml4 Mike Winchester, SUPERVISOR PLASTERING SUPERVISOR PLASTERING kb5 Jarred Serrato, DO DO mm11 Eugene Schilling MD MD br1 Jarred Gumzan, RN RN ml6 Jose Jefferson PA PA btw Fuller, Desiree,RN RN havenf Kev Allred dem1 Arthur Craven dpm Zoey Quinonez, SUPERVISOR PLASTERING SUPERVISOR PLASTERING tmm1 Mony Walton, SUPERVISOR PLASTERING SUPERVISOR PLASTERING erikp Isabel Becerra, RN RN mk4 Giovana Beckwith, SUPERVISOR PLASTERING SUPERVISOR PLASTERING jlf Niya Ventura,ELECTRIC POWER MACHINE OPERATOR ELECTRIC POWER MACHINE OPERATOR ka4 Shiela Pike,RN RN ko2 Lidia Aguilar RN RN af2 Iftikhar Garcia, Reg Reg mpb Corrections: (The following items were deleted from the chart) 09/13 10:45 10:43 BP 153 / 71; Pulse 74bpm; Resp 18bpm; Pulse Ox 9%; Temp 98.8F; 97.52 kg; Height elp 72 in.; BMI: 29.1; Pain 0/10; elp Chart Complete MTDD
[2016-09-16 18:00] VITALS: BP 138/76
--- NOTE | 2016-09-16 19:57 | IPN ---
DATE: 09/16/2016 TREATMENT: Jamil is a 31-year-old man admitted on 09/14/2016 with an admitting diagnosis of major depressive disorder and was started on Paxil 20 mg orally daily. In addition is provided with group, individual and activity therapies. He states today that he took the medication but experiencing some gastrointestinal upsets as well as constipation so he requests for some medication to help relieve his constipation. He says he still is depressed but not currently having active thoughts or plans of suicide. However, he still reports occasional intrusive thoughts in relation to his 's by gunshot wound and is concerned that such thoughts could become intense, although denying that he has plans of killing himself that way. MENTAL STATUS EXAMINATION: He is alert, adequately groomed, calm, cooperative. His speech is fluent and prosodic. Thought flow is coherent, no delusional contents or ideas of reference. He denies hallucination and does not appear to be responding to internal stimuli. Affect is slightly constricted. He denies any thoughts, plans or intent of suicide. ASSESSMENT: He appears to be adjusting relatively well and compliant with his treatment. Although continues to have some depressive, albeit significant, symptoms requiring further inpatient stabilization. PLAN: He will be continued on Paxil 20 mg orally at bedtime, Colace 100 mg orally twice daily will be started for constipation. [facility]
[2016-09-16] MEDS: DOCUSATE SODIUM 100 MG CAP PO SCH (21:01)
[2016-09-16] MEDS: PARoxetine 20 MG TAB PO SCH (21:01)
[2016-09-16] MEDS: MOM 30ML SUSPENSION UDC PO PRN (22:17)
[2016-09-17 06:00] VITALS: BP 124/71
[2016-09-17] MEDS: MULTIVITAMINS/MINERALS THERAP 1 TAB PO SCH (09:00)
[2016-09-17] MEDS ORDERED: NICOTINE 21MG/24HR 1 EA TRANSDERMAL TD SCH (09:00)
[2016-09-17] MEDS: FOLIC ACID 1 MG TAB PO SCH (09:00)
[2016-09-17] MEDS: THIAMINE 100 MG TAB PO SCH (09:00)
[2016-09-17] MEDS ORDERED: MIRALAX *UNIT DOSE* 17GM PACKET PO SCH (09:00)
[2016-09-17 10:06] VITALS: BP 128/72
[2016-09-17] MEDS: DOCUSATE SODIUM 100 MG CAP PO SCH (10:08)
[2016-09-17] MEDS: MOM 30ML SUSPENSION UDC PO PRN (11:34)
--- NOTE | 2016-09-17 11:42 | IPNPDOC ---
Assessment/Plan Date Seen The patient was seen on 09/17/16. Problems Problems: (1) Abdominal pain Status: Acute Problem Text: * Patient is afebrile. VSS. * Will update CBC/BMP * Request abdominal x-ray * Possibly related to constipation. Continue Colace 100 mg by mouth twice a day , add MiraLAX 1 packet daily. Continue milk of magnesia as needed. * Encourage by mouth fluids. * Encourage ambulation. * Monitor. (2) Tobacco use Status: Chronic Problem Text: * Continue NicoDerm (3) Pain, dental Status: Acute Problem Text: * Patient broke 2 teeth prior to admission * Controlled * Advil as needed * Plan is for outpatient dental follow-up. Plan / VTE VTE Prophylaxis Ordered?: No (ambulatory) Subjective Review of Systems CC/HPI The patient is a 31-year-old male admitted with a reason for visit of Suicidal Ideation. Events since last encounter I was requested to see the patient for abdominal pain. He states last evening he had intense abdominal discomfort, But states that now it is "way better". He states his abdominal discomfort started 2 days ago, he associates when he started Paxil. He reports reduced appetite. He states nausea however no vomiting. He reports his last bowel movement 2 days ago. Denies diarrhea. No fevers or chills. He states he has been drinking well. No urinary complaints. ENT: Denies: Dysphagia, Ear Pain, Head Aches Skin: Denies: Breakdown, Lesions, Rash Pulmonary: Denies: Cough, Dyspnea Cardiovascular: Denies: Chest Pain, Lt Headedness, Orthopnea, Palpitations, Paroxysmal Noc. Dyspnea Genitourinary: Denies: Dysuria, Frequency, Incontinence, Retention Objective Physical Examination General Exam: Positive: Alert Eye Exam: Positive: Conjunctiva & lids normal, EOMI, PERRLA, Negative: Sclera icteric ENT Exam: Positive: Atraumatic, Mucous membr. moist/pink, Pharynx Normal Neck Exam: Positive: Supple Chest Exam: Positive: Clear to auscultation, Normal air movement Heart Exam: Positive: Normal S1, Normal S2, Rate Normal, Regular Rhythm, Negative: Murmurs, Rubs Abdomen Exam: Positive: Normal bowel sounds, Other (there does not seem to be any tenderness with palpation of the abdomen at this time.), Soft, Negative: Hepatospenomegaly, Tenderness Extremity Exam: Positive: Normal pulses, Negative: Clubbing, Cyanosis, Edema Skin Exam: Positive: Nl turgor and temperature Neuro Exam: Positive: Normal Gait, Normal Speech Vital Signs/I&O Vital Signs Date Time Temp Pulse Resp B/P Pulse Ox O2 Delivery O2 Flow Rate FiO2 09/17/16 10:06 70 128/72 09/17/16 06:00 99.2 16 09/14/16 17:37 100 Room Air Sandra Lewis Sep 17, 2016 11:42
[2016-09-17 11:49] VITALS: BP 142/85
--- NOTE | 2016-09-17 12:30 | REP ---
Clinical: Acute abdominal pain. Technique: Upright view of the chest with supine and upright views of the abdomen and pelvis. Findings: Frontal upright view of the chest demonstrates no acute cardiopulmonary process or free air below the diaphragm to suspect pneumoperitoneum. Supine and upright views of the abdomen and pelvis demonstrate nonspecific bowel gas pattern without obstruction or perforation. No organomegaly. No abnormal calcifications. Skeletal structures normal for age. Impression: Nonspecific bowel gas pattern. Signed by Francois Vences MD 09/17/2016 12:21 P
[2016-09-17 12:45] LABS: BASO # 0.1 K/mm3 (0.0-0.2); BASO % 0.8 % (0.0-1.0); EOS # 0.1 K/mm3 (0.0-0.50); EOS % 0.8 % (0.0-3.0); LARGE UNSTAINED CELL # 0.3 K/mm3 (0.0-0.4); LARGE UNSTAINED CELL % 2.2 % (0.0-4.0); LYMPH # 1.6 K/mm3 (1.5-4.5); LYMPH % 9.6 % (24.0-44.0); MEAN CORPUSCULAR HEMOGLOBIN 28.6 pg (27.0-33.0); MEAN CORPUSCULAR HGB CONC 33.2 g/dl (32.0-36.5); MEAN CORPUSCULAR VOLUME 86.1 fl (80.0-96.0); MONO # 1.3 K/mm3 (0.0-0.8); MONO % 9.7 % (0.0-5.0); NEUTROPHILS # 10.4 K/mm3 (1.8-7.7); NEUTROPHILS % 76.8 % (36.0-66.0); PLATELET COUNT, AUTOMATED 212 k/mm3 (150-450); RED CELL DISTRIBUTION WIDTH 13.2 % (11.5-14.5); WHITE BLOOD COUNT 13.5 K/mm3 (4.0-10.0)
--- NOTE | 2016-09-17 13:14 | IPN ---
DATE: 09/17/2016 TREATMENT: Day #4 of inpatient admission. Patient is seen and his treatment reviewed. He currently continues to receive Paxil 20 mg orally daily for treatment of depressive symptoms. He also is provided with group, individual and activity therapies. So far he reports that he has been taking his medication. He reports abdominal discomfort and constipation and is unsure whether those are related to the Paxil. He was started on Colace 100 mg orally twice a daily for constipation relief and did receive some Milk of magnesia the night before. However, he says this morning that he is still experiencing some discomfort. I discussed with the medical physician kindergarten teacher assistant to followup with the patient to assess for reported abdominal pain/discomfort. He reports having slept well through the night and says that he feels since his stay in as an inpatient, has been having some decrease in suicidal thoughts. Vital signs: Blood pressure 124/71, pulse 66, respirations 16, temperature 99.2. He is noted to be alert, calm, socializing with peers, attending groups and individual as well as activity therapies. He has not been any management problem on the unit. He is respectful and interacts normally. No reported medical adverse events. His mood is showing some improvement. No psychotic features noted. He denies active thoughts, plan or intent of suicide as well as homicide. ASSESSMENT: Patient responding to treatment, however, he continues to have significant depressive symptoms requiring further inpatient stabilization. PLAN: Will continue on the current dose of Paxil 20 mg orally at bedtime, Colace 100 mg orally twice daily for constipation. He will be followed up by the medical physician kindergarten teacher assistant to assess abdominal problems. [facility]
[2016-09-17 13:23] LABS: CALCIUM LEVEL 9.2 MG/DL (8.5-10.1); CREATININE FOR GFR 4.98 MG/DL (0.70-1.30); GLOMERULAR FILTRATION RATE 14.6 (>60); POTASSIUM SERUM 4.7 MEQ/L (3.5-5.1)
[2016-09-17] MEDS ORDERED: PAXI20TA3 PO (14:25)
[2016-09-17 14:52] LABS: ALBUMIN 3.8 GM/DL (3.2-5.2); ALBUMIN/GLOBULIN RATIO 1.15 (1.00-1.93); BILIRUBIN,DIRECT 0.2 MG/DL (0.0-0.2); BILIRUBIN,TOTAL 1.1 MG/DL (0.2-1.0); TOTAL PROTEIN 7.1 GM/DL (6.4-8.2)
--- NOTE | 2016-09-17 18:59 | MHDS ---
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 He further stated that he indirectly was responsible for his 's because she killed herself with his gun, and for that reason, he does have intrusive thoughts that he deserves to the same way she did. He says that he has continued to experience marked feelings of guilt and depression since that time and has had fleeting thoughts of suicide, although so far has had no established plan or intent. He denied any history of depression or other psychiatric problems prior to the of his on 12/21/2014. He reported that he was receiving counseling at [facility] prior to coming to the recent emergency room visit but has not formally been evaluated by a psychiatrist. He reported resorting to drinking heavily, with feelings that there was no point going on with life. He reported poor sleep, and overwhelming feelings of guilt and emotion, with notable rumination over his . Progressive decrease in energy level was also reported. He said that he fell to the floor and broke his teeth, the day prior to his emergency department visit, due to being drunk. No reported past psychiatric history. SUBSTANCE ABUSE: Limited to alcohol indulgence. No reported active medical condition or allergy at the time of this current admission. HOSPITAL COURSE: At the time of admission he was diagnosed with major depressive and alcohol use disorders. Medication treatment was initiated with Paxil 20 mg orally at bed time for treatment of depressive symptoms. In addition to medication management he was provided with group, individual and activity therapies. The patient tolerated the medication and was actively involved in his group activities. He subsequently began to report abdominal pain and constipation. He thus was prescribed Colace 100 mg orally twice daily and Milk of Magnesia for relief of constipation. Today however he continued to report abdominal discomfort was evaluated by the medical physician assistant professor of biochemistry. Imaging studies and laboratory findings suggested possible renal dysfunction; thus the decision to transfer him to the medical unit for further management. MENTAL STATUS EXAMINATION ON DISCHARGE TO MEDICAL FLOOR: He is noted to be alert , calm, cooperative, adequately oriented to time, place and person. His grooming and hygiene are fair. He is appropriately dressed in [facility]. Speech is fluent and prosodic. Thought process is coherent and goal-directed. No delusions or ideas of reference noted and he denies any form of hallucination and did not appear to be responding to internal stimuli. His mood is noted to be slightly depressed. Affect appropriate. He denies suicidal or homicidal thoughts, plan or intent. DISCHARGE DIAGNOSIS: Major depressive disorder. PLAN: Discharge to the medical floor for ongoing management of his renal problems. [facility]
== END 2016-09-17 16:30 | disposition short-term general hospital (02) | DRG 881 ==
LOC: M ED 10:40 → M PSY 09-14 16:20
PROVIDERS: ADMIT Psychiatry & Neurology Psychiatry; ATTEND Psychiatry & Neurology Psychiatry
DX: F32.9 Major depressive disorder, single episode, unspecified (principal); F10.10 Alcohol abuse, uncomplicated; F17.210 Nicotine dependence, cigarettes, uncomplicated; K59.00 Constipation, unspecified; K08.89 Other specified disorders of teeth and supporting structures; N28.9 Disorder of kidney and ureter, unspecified

== ENCOUNTER 2016-09-17 14:35 | Inpatient (IN) | payer OTHER ==
[~2016-09-17] VITALS: Ht 182.9 cm; Wt 103.0 kg
[~2016-09-17 14:35] MED LIST: NAPR250T2 PO; PAXI20TA3 PO
[2016-09-17] MEDS ORDERED: NS 1,000 ML IV SCH ×2 (14:40→14:46)
[2016-09-17] MEDS ORDERED: SODIUM CHLORIDE 0.9% 1000 ML IV SCH (15:00)
--- NOTE | 2016-09-17 15:02 | IPNPDOC ---
Text Note Date of Service The patient was seen on 09/17/16 at 14:56. NOTE Admission H&P Date of admission: 09/17/16 PCP: [facility] ATTENDING: Dr. Romero HPI: 31yoM admitted to [facility] for MDD, being transferred to medical floor today related to ARF. Patient states that prior to admission he was drinking heavily. He had apparently fallen prior to admission and broke 2 of his teeth. He is reporting some mild pain and sensitivity with cold temperatures in the right upper lateral incisor and right central incisor with eating or drinking which has improved since admission and he has used ibuprofen x 2 dosed only. I was called to evaluate him today related to some abdominal pain that he experienced last evening and today he reports it was improved. He states he was eating less but drinking well. Reports constipation over the past 2 days. Mild nausea but no vomiting. Denies any fevers, chills, weakness, fatigue, BROCK, CP, SOB, cough, palpitations, V/D or changes in bowel or bladder habits. PMHx: Depression PSHX: Benign cyst removed upper back Luebbering teeth extraction Circumcision 19 yo SOCHX: Resides in: [place], From [facility]. 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 On weekends a bottle of liquor and several beers per day, drinking to the point of blackout. Illicit Drugs: Denies IV Drug Use: Denies Tattoos done unprofessionally: Denies FAMHX: Mother: Alive, history of alcoholism Father: Unknown, history of alcoholism Siblings: None Children: None Unexpected deaths due to medical reasons: None. ROS: As noted in HPI, otherwise 11pt ROS of systems reviewed and unremarkable PE: GEN: 31yoM, appears stated age. Well-nourished, well developed. No acute distress. Alert and oriented x 3. Pleasant, interactive. HEENT: Normocephalic, atraumatic. Pupils are equal, round, and reactive to light. Extraocular movements are intact. No nystagmus appreciated. Sclera are nonicteric. Conjunctiva without injection. Nose midline. Nasal turbinates without bogginess. EACs both patent BL. TMs both visualized and roberts with good cone of light, no bulging or erythema. No facial asymmetry. Moist mucous membranes. Dentition with broken teeth noted Rt lateral and central upper incisor. Pharynx pink and moist, no cobblestoning. Neck supple, trachea midline. No lymphadenopathy or thyromegaly appreciated. CHEST: Regular rate and rhythm, +S1, +S2 LUNGS: Clear to auscultation bilaterally. No wheezes, rales, or rhonchi. Breathing appears symmetric and easy. Patient is speaking in full sentences. No accessory muscle use. ABD: Round, soft, non-tender with light or deep palpation on exam today, non- distended. +Bowel sounds throughout. No rebound or guarding. No costovertebral angle tenderness. EXT: Pulses 2+ bilaterally dorsalis pedis and radial. No lower extremity edema appreciated. SKIN: [place], dry, warm. Capillary refill <2sec. No rashes. NEURO: Alert and oriented x 3. Cranial nerves III-XII are intact. No focal deficits appreciated. EK09/15/16 SR, mod IVCD. 60 bpm. A&P: 31yoM admitted to [facility] for ARF. 1. ARF. Pt to transfer to [facility]. 1 liter IVF bolus followed by IVF at 150cc/hr. Check further labs including CPK, renal profile, Lactic acid, ABG UA/UC and urine studies. Chk renal US. Recheck Renal profile at 10PM. Recheck labs in AM. Pt is discussed and reviewed with Dr Erickson and will be followed by Dr Romero. 2. Psych. Plan per Psychiatry. EKG on file. One to one observation. Psych consulted. 2. Nicotine dependence. 3. H/O Alcohol use. 4. Follow up with PCP on discharge. [facility]. 5. Dental pain, related to dental injury. Will need follow-up with dental provider at discharge. Continue with Tylenol as needed. Item Value Date Time White Blood Count 13.5 K/mm3 H 09/17/16 1222 Red Blood Count 4.93 M/mm3 09/17/16 1222 Hemoglobin 14.1 g/dl 09/17/16 1222 Hematocrit 42.5 % 09/17/16 1222 Mean Corpuscular Volume 86.1 fl 09/17/16 1222 Mean Corpuscular Hemoglobin 28.6 pg 09/17/16 1222 Mean Corpuscular Hemoglobin Concent 33.2 g/dl 09/17/16 1222 Red Cell Distribution Width 13.2 % 09/17/16 1222 Platelet Count 212 k/mm3 09/17/16 1222 Sodium Level 141 MEQ/L 09/17/16 1222 Potassium Level 4.7 MEQ/L 09/17/16 1222 Chloride Level 103 MEQ/L 09/17/16 1222 Carbon Dioxide Level 28 MEQ/L 09/17/16 1222 Anion Gap 10 MEQ/L 09/17/16 1222 Blood Urea Nitrogen 40 MG/DL H 09/17/16 1222 Creatinine 4.98 MG/DL H 09/17/16 1222 Glomerular Filtration Rate 14.6 L 09/17/16 1222 Fasting Glucose 97 MG/DL 09/17/16 1222 Lactic Acid Level 1.6 MMOL/L 09/17/16 1415 Calcium Level 9.2 MG/DL 09/17/16 1222 Total Bilirubin 1.1 MG/DL H 09/17/16 1415 Direct Bilirubin 0.2 MG/DL 09/17/16 1415 Aspartate Amino Transf (AST/SGOT) 23 U/L 09/17/16 1415 Alanine Aminotransferase (ALT/SGPT) 23 U/L 09/17/16 1415 Alkaline Phosphatase 67 U/L 09/17/16 1415 Total Protein 7.1 GM/DL 09/17/16 1415 Albumin 3.8 GM/DL 09/17/16 1415 Albumin/Globulin Ratio 1.15 09/17/16 1415 Thyroid Stimulating Hormone (TSH) 1.240 uIU/ML 09/13/16 1112 Item Value Date Time Salicylates Level < 1.7 MG/DL L 09/13/16 1112 Urine Opiates Screen NEGATIVE 09/13/16 1242 Urine Methadone Screen NEGATIVE 09/13/16 1242 Acetaminophen Level < 2.0 UG/ML L 09/13/16 1112 Urine Barbiturates, Qualitative NEGATIVE 09/13/16 1242 Urine Tricyclic Antidepressants NEGATIVE 09/13/16 1242 Urine Amphetamine Level POSITIVE H 09/13/16 1242 Urine Benzodiazepines Screen NEGATIVE 09/13/16 1242 Urine Cocaine Metabolite NEGATIVE 09/13/16 1242 Urine Cannabinoids NEGATIVE 09/13/16 1242 Ethyl Alcohol Level < 0.003 % 09/13/16 1112 VS,Fishbone, I+O VS, Fishbone, I+O Addendum by Dr. Erickson Per the patient, on wednesday when he had muscle aches after physical training, he took 12 tablets of naproxen over a 12hr period, and usually drinks about 1/2 gallon of liquids daily. Plan: potential NSAID-induced vs dehydration EDI. rule out glomerular disease by checking ua for casts. Sandra Lewis Sep 17, 2016 15:02 OMID ERICKSON MD Sep 17, 2016 16:30
[2016-09-17 17:24] VITALS: BP 167/90
[2016-09-17] MEDS: NS 1,000 ML IV SCH (18:00)
[2016-09-17] MEDS ORDERED: SODIUM CHLORIDE 0.9% 1000 ML IV ONE (18:00)
[2016-09-17 18:17] VITALS: BP 130/62
[2016-09-17 18:36] LABS: COMPLEMENT C3 122 MG/DL (90-180); COMPLEMENT C4 26.9 MG/DL (10-40); URIC ACID 7.9 MG/DL (3.5-7.2)
[2016-09-17 19:28] LABS: OSMOLALITY SERUM 303 MOSM/KG (275-295)
[2016-09-17 20:52] LABS: CALCIUM LEVEL 8.2 MG/DL (8.5-10.1); CREATININE FOR GFR 5.28 MG/DL (0.70-1.30); GLOMERULAR FILTRATION RATE 13.7 (>60); POTASSIUM SERUM 4.1 MEQ/L (3.5-5.1)
[2016-09-17] MEDS: amLODIPine 5 MG TAB PO SCH (21:00)
--- NOTE | 2016-09-17 21:10 | REPUSA ---
Clinical history: Renal failure. Findings: The right kidney measures 12.9 x 5.7 x 6.5 cm. The left kidney measures 13.5 x 5.8 x 6.7 cm . The kidneys demonstrate normal echotexture and echogenicity. There is no evidence of hydronephrosis or nephrolithiasis. No renal masses are seen. No free fluid is appreciated. The urinary bladder is u nremarkable. Impression: Unremarkable ultrasound examination of the kidneys.
[2016-09-17 22:00] VITALS: BP 143/86
[2016-09-17 23:41] LABS: OSMOLALITY URINE 171 MOSM/KG (500-800)
[2016-09-18] MEDS: NS 1,000 ML IV SCH ×4 (00:40→19:49)
[2016-09-18 06:00] VITALS: BP 147/80
[2016-09-18 06:53] LABS: BASO # 0.1 K/mm3 (0.0-0.2); BASO % 0.8 % (0.0-1.0); EOS # 0.2 K/mm3 (0.0-0.50); EOS % 1.6 % (0.0-3.0); LARGE UNSTAINED CELL # 0.3 K/mm3 (0.0-0.4); LARGE UNSTAINED CELL % 2.2 % (0.0-4.0); LYMPH # 1.9 K/mm3 (1.5-4.5); LYMPH % 12.5 % (24.0-44.0); MEAN CORPUSCULAR HEMOGLOBIN 28.6 pg (27.0-33.0); MEAN CORPUSCULAR HGB CONC 33.8 g/dl (32.0-36.5); MEAN CORPUSCULAR VOLUME 84.8 fl (80.0-96.0); MONO # 1.2 K/mm3 (0.0-0.8); MONO % 8.8 % (0.0-5.0); NEUTROPHILS # 9.7 K/mm3 (1.8-7.7); PLATELET COUNT, AUTOMATED 188 k/mm3 (150-450); RED CELL DISTRIBUTION WIDTH 13.3 % (11.5-14.5); WHITE BLOOD COUNT 13.1 K/mm3 (4.0-10.0)
[2016-09-18 07:15] LABS: CALCIUM LEVEL 8.3 MG/DL (8.5-10.1); CREATININE FOR GFR 5.71 MG/DL (0.70-1.30); GLOMERULAR FILTRATION RATE 12.5 (>60)
[2016-09-18 07:17] LABS: POTASSIUM SERUM 5.6 MEQ/L (3.5-5.1)
[2016-09-18 08:27] LABS: BILIRUBIN,TOTAL 0.8 MG/DL (0.2-1.0); TOTAL PROTEIN 6.5 GM/DL (6.4-8.2)
[2016-09-18 08:40] LABS: BILIRUBIN,DIRECT 0.2 MG/DL (0.0-0.2)
[2016-09-18 08:57] LABS: ALBUMIN 3.1 GM/DL (3.2-5.2); ALBUMIN/GLOBULIN RATIO 0.91 (1.00-1.93)
[2016-09-18] MEDS: NICOTINE 14 MG/24 HR TRANSDERMAL TD SCH (09:00)
[2016-09-18] MEDS: amLODIPine 5 MG TAB PO SCH ×2 (09:00→20:01)
[2016-09-18] MEDS ORDERED: SOD POLYSTYRENE SULFONATE SUSP 15 GM/60 ML UD PO ONE (10:30)
[2016-09-18 14:00] VITALS: BP 146/96
--- NOTE | 2016-09-18 14:01 | CR.PDOC ---
[facility] Consultation Consultation DATE OF ADMISSION: 09/14/2016 DATE OF CONSULTATION: 09/18/2016 REQUESTING PROVIDER: Dr. Bunny Romero REASON FOR CONSULTATION/CHIEF COMPLAINT: acute renal failure HISTORY OF PRESENT ILLNESS: Mr. Elizalde is a 31 year old male with past medical history significant for depression who was admitted to inpatient mental health due to depression and feelings of guilt after losing his who 2 years ago. He reports excessive alcohol intake and due to him being drunk , he fell prior to admission and broke two of his teeth. This caused him significant pain and he was taking naproxen for this at home. He reports that he took about 20 pills of naproxen, 4 at a time. He also reports that this was consumed on Wednesday evening until Wednesday morning, in about a 12-16 hour time frame. In addition to the pills, he also admits to alcohol use, about 10-20 beers over the weekend and he drunk a whole bottle of rum in about 20-30 minutes. He denies any other illicit drug use. He reports that Wednesday night, he started to experience back pain as well as abdominal pain, that is worst at night. His creatinine prior to admission to inpatient mental health on 09/13 was 1.09. When checked on 09/17 after his acute complaints, it was found to be greater than 5. Patient denies any previous renal disease. He reports that he had been urinating well. He reports that his appetite has been decreased and he has felt bloated, however no nausea, vomiting, diarrhea, chest pain, shortness of breath, palpitations, fever or chills. He has been moving his bowels and no acute changes. He was initiated on IV fluids and nephrology consult was requested secondary to acute kidney injury. PAST MEDICAL HISTORY: 1. Depression PAST SURGICAL HISTORY: 1. Benign cyst removal and upper back 2. [place] teeth extraction 3. Circumcision ALLERGIES: No known drug allergies HOME MEDICATIONS: Naproxen 250 mg by mouth as needed FAMILY HISTORY: Parents had history of alcoholism. SOCIAL HISTORY: Patient's 2 years ago. He admits to tobacco use as well as excessive alcohol use on weekends. States that over this past weekend, he had about 10-20 beers. No illicit drug use. 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 REVIEW OF SYSTEMS: As per HPI. PHYSICAL EXAMINATION: Vital Signs Date Time Temp Pulse Resp B/P Pulse Ox O2 Delivery O2 Flow Rate FiO2 09/18/16 09:00 60 143/80 09/18/16 06:00 96.6 16 98 Room Air I&O- Last 24 Hours up to 6 AM 09/18/16 05:59 Intake Total 1841 ml Output Total 900 ml Balance 941 ml GENERAL: Well-nourished, well developed. In no acute distress. HEENT: Normocephalic, atraumatic. Extraocular movements are intact. No scleral icterus. Moist mucosa. NECK: Supple. No jugular venous distention. HEART: S1, S2. Regular rate and rhythm, no murmur appreciated LUNGS: Clear to auscultation bilaterally. No wheezes, rales, or rhonchi appreciated. ABDOMEN: soft, non-tender, nondistended. Bowel sounds are present. No rebound, guarding or rigidity. No costovertebral angle tenderness. EXTREMITIES: No cyanosis or lower extremity edema. Positive pedal pulses bilaterally. SKIN: Warm and dry. No rashes noted. NEUROLOGIC: Alert and oriented x 3. No focal deficits. LABORATORY DATA: 09/18/16 06:35 Red Blood Count 4.54, Mean Corpuscular Volume 84.8, Mean Corpuscular Hemoglobin 28.6, Mean Corpuscular Hemoglobin Concent 33.8, Red Cell Distribution Width 13.3 , Aspartate Amino Transf (AST/SGOT) 14L, Alanine Aminotransferase (ALT/SGPT) 19 , Alkaline Phosphatase 55, Total Bilirubin 0.8, Direct Bilirubin 0.2, Albumin 3.1L, Albumin/Globulin Ratio 0.91L, Amylase Level 26, Anion Gap 5L, Calcium Level 8.3L, Glomerular Filtration Rate 12.5L, Lipase 116, Phosphorus Level 4.0, Total Protein 6.5 MICROBIOLOGY: Urine culture shows no growth. IMAGING: Renal Ultrasound unremarkable. ASSESSMENT/PLAN: Mr. Elizalde is a 31-year-old male with past medical history significant for depression was admitted to inpatient mental health unit until he started experiencing increasing abdominal pain and back pain and found to have acute kidney injury after taking high dose NSAIDs. 1. Acute renal failure, secondary to high dose NSAIDs causing nephrotoxicity. It appears that his creatinine was 1.1 on September 13 and then not checked again until September 17. The progression of his renal dysfunction is unknown. We'll continue with intravenous fluids at a rate of 150 mL/h. Given that his renal function was normal prior and he has no history of chronic renal disease, recovery is reassuring. He has minimal increase in protein and blood secondary to tubular injury. There is no acute indication for hemodialysis. We will continue to monitor with current fluids. His renal function should start to turn around in the next few days. 2. Hyperkalemia secondary to acute tubular injury. This has been treated medically with Kayexalate. Continue to monitor electrolytes. 3. Mild rhabdomyolysis. Patient had a fall injury a few days ago. His urinalysis was positive for myoglobin. CK was not elevated. He is already on intravenous fluids. Thank you for the consultation and allowing us to participate in the care of Mr. Elizalde. We'll continue to follow along with you. Allergies Coded Allergies: No Known Allergies (Unverified , 09/14/16) Home Medications Scheduled Paroxetine Hydrochloride (Paxil) 20 Mg Tab 20 MG PO QHS DEPRESSION (Reported) GME ATTESTATION GME ATTESTATION My preceptor for this patient encounter was physically present in the building during the encounter and was fully available. As needed, all aspects of the patient interview, examination, medical decision making process, and medical care plan development were reviewed and approved by the preceptor. Preceptor is aware and concurs with the plan as stated in the body of this note and will attest to such by his/her cosignature. TRI LOZADA DO Sep 18, 2016 14:01 Red Blood Count 4.54, Mean Corpuscular Volume 84.8, Mean Corpuscular Hemoglobin 28.6, Mean Corpuscular Hemoglobin Concent 33.8, Red Cell Distribution Width 13.3 , Neutrophils (%) (Auto) 74.0 H, Lymphocytes (%) (Auto) 12.5 L, Monocytes (%) ( Auto) 8.8 H, Eosinophils (%) (Auto) 1.6, Basophils (%) (Auto) 0.8, Neutrophils # (Auto) 9.7 H, Lymphocytes # (Auto) 1.9, Monocytes # (Auto) 1.2 H, Eosinophils # (Auto) 0.2, Basophils # (Auto) 0.1 Microbiology Microbiology 09/17/16 Urine Culture - Final, Complete Allergies Coded Allergies: No Known Allergies (Unverified , 09/14/16) Home Medications Scheduled Paroxetine Hydrochloride (Paxil) 20 Mg Tab 20 MG PO QHS DEPRESSION (Reported) TRI LOZADA DO Sep 18, 2016 14:01
--- NOTE | 2016-09-18 16:26 | IPNPDOC ---
Assessment/Plan Date Seen The patient was seen on 09/18/16. Problems Problems: (1) Acute renal failure Status: Acute Response to Treatment: Stable Problem Text: Likely secondary to naproxen use We will continue with IV fluid hydration at this time The patient has been maintaining an adequate urine output Urine studies noted Renal ultrasound with no acute findings We will continue to monitor the patient's I's and O's and BMP (2) Hyperkalemia Status: Acute Problem Text: Serum potassium noted to 5.6 likely secondary to #1 Given 1 dose of Kayexalate We will follow up with ashok BMP (3) Depression Status: Chronic Response to Treatment: Stable Problem Text: Patient was transferred over from the inpatient mental health unit No one-on-one sitter recommended at this time We will follow up with psychiatry's recommendation when medically stable (4) Alcohol abuse Status: Chronic Response to Treatment: Stable Problem Text: Patient states that he drinks 4-5 beers on the weekdays, and 20 beers plus liquor on the weekends I advised the patient to abstain from drinking such copious amounts Last drink 6 days ago. In addition, I've advised him that we can set him up with a rehabilitation program upon discharge. (5) Tobacco use Status: Chronic Problem Text: Nicotine patch ordered Plan / VTE VTE Prophylaxis Ordered?: Yes Subjective Review of Systems CC/HPI The patient is a 31-year-old male admitted with a reason for visit of Accute Renal Failure. General: Denies: Chills, Night Sweats Constitutional: Denies: Chills, Fever Eyes: Denies: Pain, Vision change ENT: Denies: Ear Pain, Head Aches Skin: Denies: Lesions, Rash Pulmonary: Denies: Dyspnea Cardiovascular: Denies: Chest Pain, Palpitations Gastrointestinal: Denies: Nausea, Vomiting Genitourinary: Denies: Dysuria, Frequency Hematologic: Denies: Bleeding Excessively, Bruising Objective Physical Examination General Exam: Positive: Alert, Cooperative, No Acute Distress ENT Exam: Positive: Atraumatic, Mucous membr. moist/pink Chest Exam: Positive: Clear to auscultation, Normal air movement Heart Exam: Positive: Normal S1, Normal S2, Rate Normal Abdomen Exam: Positive: Soft, Negative: Tenderness Extremity Exam: Negative: Edema, Swelling, Tenderness Vital Signs/I&O Vital Signs Date Time Temp Pulse Resp B/P Pulse Ox O2 Delivery O2 Flow Rate FiO2 09/18/16 09:00 60 143/80 09/18/16 06:00 96.6 16 98 Room Air I&O- Last 24 Hours up to 6 AM 09/18/16 06:00 Intake Total 2081 ml Output Total 1550 ml Balance 531 ml Laboratory Data Labs 24H Laboratory Tests 2 09/17/16 17:56: Anti-Streptolysin O Antibody < 12.5, Complement C3 122, Complement C4 26.9, Erythrocyte Sedimentation Rate 28H, Osmolality 303H, Total Creatine Kinase 186, Uric Acid 7.9H 09/17/16 18:56: Urine Amorphous Sediment , Urine Appearance CLEAR, Urine Color STRAW, Urine pH 6.0, Urine Specific [place] 1.003, Urine Protein 1+H, Urine Glucose (UA) NEGATIVE, Urine Ketones NEGATIVE, Urine Urobilinogen 0.2, Urine Bilirubin NEGATIVE, Urine Leukocyte Esterase NEGATIVE, Urine Bacteria (Auto) 1+H, Urine Blood 1+H, Urine Calcium Carbonate Cryst(Auto) , Urine Calcium Oxalate Cryst ( Auto) , Urine Calcium Phosphate [place] (Auto) , Urine Cellular Casts , Urine Cystine Crystals , Urine Granular Casts (Auto) , Urine Hyaline Casts (Auto) 0, Urine Leucine Crystals , Urine Mucus (Auto) , Urine Nitrite NEGATIVE, Urine Oval Fat Bodies (Auto) , Urine RBC (Auto) 0, Urine Random Creatinine 45.4, Urine Random Osmolality 171L, Urine Random Potassium 8.8, Urine Random Sodium 45 , Urine Renal Epithelial Cells , Urine Sperm (Auto) , Urine Squamous Epithelial Cells 0, Urine Transitional Epithelial Cells , Urine Trichomonas (Auto) , Urine Triple Phosphate Cryst (Auto) , Urine Tyrosine Crystals , Urine Uric Acid Crystals (Auto) , Urine WBC (Auto) 0, Urine Waxy Casts (Auto) , Urine Yeast- Like Cells (Auto) 09/17/16 20:06: Anion Gap 9, Blood Urea Nitrogen 43H, Creatinine 5.28H, Sodium Level 141, Potassium Level 4.1, Chloride Level 107, Carbon Dioxide Level 25, Calcium Level 8.2L, Glomerular Filtration Rate 13.7L 09/18/16 00:39: Urine Myoglobin POSITIVE 09/18/16 06:35: Aspartate Amino Transf (AST/SGOT) 14L, Alanine Aminotransferase (ALT/SGPT) 19, Alkaline Phosphatase 55, Total Bilirubin 0.8, Direct Bilirubin 0.2, Albumin 3.1L , Albumin/Globulin Ratio 0.91L, Amylase Level 26, Anion Gap 5L, White Blood Count 13.1H, Red Blood Count 4.54, Hemoglobin 13.0L, Hematocrit 38.5L, Mean Corpuscular Volume 84.8, Mean Corpuscular Hemoglobin 28.6, Mean Corpuscular Hemoglobin Concent 33.8, Red Cell Distribution Width 13.3, Platelet Count 188, Neutrophils (%) (Auto) 74.0H, Lymphocytes (%) (Auto) 12.5L, Monocytes (%) (Auto ) 8.8H, Eosinophils (%) (Auto) 1.6, Basophils (%) (Auto) 0.8, Neutrophils # ( Auto) 9.7H, Lymphocytes # (Auto) 1.9, Monocytes # (Auto) 1.2H, Eosinophils # ( Auto) 0.2, Basophils # (Auto) 0.1, Calcium Level 8.3L, Glomerular Filtration Rate 12.5L, Large Unclassified Cells # 0.3, Large Unclassified Cells % 2.2, Lipase 116, Phosphorus Level 4.0, Total Protein 6.5 CBC/BMP Laboratory Tests 09/17/16 20:06 Calcium Level 8.2 L 09/18/16 06:35 Red Blood Count 4.54, Mean Corpuscular Volume 84.8, Mean Corpuscular Hemoglobin 28.6, Mean Corpuscular Hemoglobin Concent 33.8, Red Cell Distribution Width 13.3 , Neutrophils (%) (Auto) 74.0 H, Lymphocytes (%) (Auto) 12.5 L, Monocytes (%) ( Auto) 8.8 H, Eosinophils (%) (Auto) 1.6, Basophils (%) (Auto) 0.8, Neutrophils # (Auto) 9.7 H, Lymphocytes # (Auto) 1.9, Monocytes # (Auto) 1.2 H, Eosinophils # (Auto) 0.2, Basophils # (Auto) 0.1 Microbiology Microbiology 09/17/16 Urine Culture - Final, Complete JAMIN SMITH MD Sep 18, 2016 16:26 JAMIN SMITH MD Sep 18, 2016 16:26
[2016-09-18 20:02] VITALS: BP 143/91
[2016-09-18] MEDS: ACETAMINOPHEN TAB 650MG DOSE (2X325MG) PO PRN (22:22)
[2016-09-19] MEDS: NS 1,000 ML IV SCH ×2 (02:19→08:54)
[2016-09-19 06:00] VITALS: BP 136/82
[2016-09-19 06:55] LABS: CREATININE FOR GFR 6.05 MG/DL (0.70-1.30); GLOMERULAR FILTRATION RATE 11.7 (>60); PHOSPHORUS LEVEL 4.6 MG/DL (2.5-4.9); POTASSIUM SERUM 4.7 MEQ/L (3.5-5.1)
[2016-09-19 08:15] LABS: MEAN CORPUSCULAR HEMOGLOBIN 28.5 pg (27.0-33.0); MEAN CORPUSCULAR HGB CONC 33.7 g/dl (32.0-36.5); MEAN CORPUSCULAR VOLUME 84.7 fl (80.0-96.0); RED CELL DISTRIBUTION WIDTH 13.4 % (11.5-14.5); WHITE BLOOD COUNT 9.5 K/mm3 (4.0-10.0)
[2016-09-19] MEDS: NICOTINE 14 MG/24 HR TRANSDERMAL TD SCH (08:51)
[2016-09-19] MEDS: amLODIPine 5 MG TAB PO SCH ×2 (08:54→21:00)
--- NOTE | 2016-09-19 11:58 | IPNPDOC ---
Assessment/Plan Date Seen The patient was seen on 09/19/16. Problems Problems: (1) Acute renal failure Status: Acute Response to Treatment: Stable Problem Text: Likely secondary to naproxen use We will continue with IV fluid hydration at this time The patient has been maintaining an adequate urine output Urine studies noted Renal ultrasound with no acute findings We will continue to monitor the patient's I's and O's and BMP (2) Hyperkalemia Status: Resolved (3) Depression Status: Chronic Response to Treatment: Stable Problem Text: Patient was transferred over from the inpatient mental health unit No one-on-one sitter recommended at this time We will follow up with psychiatry's recommendation when medically stable (4) Alcohol abuse Status: Chronic Response to Treatment: Stable Problem Text: Patient states that he drinks 4-5 beers on the weekdays, and 20 beers plus liquor on the weekends I advised the patient to abstain from drinking such copious amounts Last drink 6 days ago. In addition, I've advised him that we can set him up with a rehabilitation program upon discharge. (5) Tobacco use Status: Chronic Problem Text: Nicotine patch ordered Plan / VTE VTE Prophylaxis Ordered?: Yes Subjective Review of Systems CC/HPI The patient is a 31-year-old male admitted with a reason for visit of Accute Renal Failure. General: Denies: Chills, Night Sweats Constitutional: Denies: Chills, Fever Eyes: Denies: Pain, Vision change ENT: Denies: Ear Pain, Head Aches Skin: Denies: Lesions, Rash Pulmonary: Denies: Cough, Dyspnea Cardiovascular: Denies: Chest Pain, Palpitations Gastrointestinal: Denies: Abdominal Pain, Nausea, Vomiting Genitourinary: Denies: Dysuria, Frequency Hematologic: Denies: Bleeding Excessively, Bruising Objective Physical Examination General Exam: Positive: Alert, Cooperative, No Acute Distress ENT Exam: Positive: Atraumatic, Mucous membr. moist/pink Chest Exam: Positive: Clear to auscultation, Normal air movement Heart Exam: Positive: Normal S1, Normal S2, Rate Normal Abdomen Exam: Positive: Soft, Negative: Tenderness Extremity Exam: Negative: Edema, Swelling, Tenderness Vital Signs/I&O Vital Signs Date Time Temp Pulse Resp B/P Pulse Ox O2 Delivery O2 Flow Rate FiO2 09/19/16 08:54 75 159/86 09/19/16 06:00 96.7 18 98 Room Air I&O- Last 24 Hours up to 6 AM 09/19/16 06:00 Intake Total 3090 ml Output Total 0 ml Balance 3090 ml Laboratory Data Labs 24H Laboratory Tests 2 09/19/16 06:18: Albumin 3.0L, Blood Urea Nitrogen 45H, Creatinine 6.05H, Sodium Level 144, Potassium Level 4.7, Chloride Level 110H, Carbon Dioxide Level 27, Anion Gap 7L , Calcium Level 8.0L, Glomerular Filtration Rate 11.7L, Phosphorus Level 4.6 CBC/BMP Laboratory Tests 09/19/16 06:18 Anion Gap 7 L 09/19/16 06:19 Red Blood Count 4.20 L, Mean Corpuscular Volume 84.7, Mean Corpuscular Hemoglobin 28.5, Mean Corpuscular Hemoglobin Concent 33.7, Red Cell Distribution Width 13.4 Microbiology Microbiology 09/17/16 Urine Culture - Final, Complete JAMIN MSITH MD Sep 19, 2016 11:58
--- NOTE | 2016-09-19 12:04 | IPNPDOC ---
Date/Time Seen The patient was seen on 09/19/16 at 11:51. Progress Note SUBJECTIVE: Patient was seen this morning at bedside. He reports that his abdominal pain and back pain have improved. He denies any nausea, vomiting, and diarrhea, chest pain, shortness of breath. No headache, lightheadedness or dizziness. No fevers or chills. He has good oral intake and making urine. OBJECTIVE: Vital Signs Date Time Temp Pulse Resp B/P Pulse Ox O2 Delivery O2 Flow Rate FiO2 09/19/16 08:54 75 159/86 09/19/16 06:00 96.7 18 98 Room Air I&O- Last 24 Hours up to 6 AM 09/19/16 05:59 Intake Total 2970 ml Output Total 650 ml Balance 2320 ml GENERAL: Well-nourished, well developed. In no acute distress. HEENT: Normocephalic, atraumatic. Extraocular movements are intact. No scleral icterus. Moist mucosa. NECK: Supple. No jugular venous distention. HEART: S1, S2. Regular rate and rhythm, no murmur appreciated LUNGS: Clear to auscultation bilaterally. No wheezes, rales, or rhonchi appreciated. ABDOMEN: soft, non-tender, nondistended. Bowel sounds are present. No rebound, guarding or rigidity. EXTREMITIES: No cyanosis or lower extremity edema. Positive pedal pulses bilaterally. SKIN: Warm and dry. No rashes noted. NEUROLOGIC: Alert and oriented x 3. No focal deficits. LABORATORY DATA: 09/19/16 06:18 09/19/16 06:19 Red Blood Count 4.20 L, Mean Corpuscular Volume 84.7, Mean Corpuscular Hemoglobin 28.5, Mean Corpuscular Hemoglobin Concent 33.7, Red Cell Distribution Width 13.4, Albumin 3.0L, Anion Gap 7L, Calcium Level 8.0L, Glomerular Filtration Rate 11.7L, Phosphorus Level 4.6 MICROBIOLOGY: Urine culture shows no growth. IMAGING: Renal Ultrasound unremarkable. ASSESSMENT/PLAN: Mr. Elizalde is a 31-year-old male with past medical history significant for depression was admitted to inpatient mental health unit until he started experiencing increasing abdominal pain and back pain and found to have acute kidney injury after taking high dose NSAIDs. 1. Acute renal failure, secondary to high dose NSAIDs causing nephrotoxicity. Creatinine was previously within normal on admission to inpatient mental health. He does not have any history of chronic renal disease and ultrasound was unremarkable, which is reassuring. He was on intravenous fluids, which are now being discontinued. He has good oral intake and fairly decent urinary output. His minimal increase in protein and blood on urinalysis is likely secondary to tubular injury. His volume status is stable. He is not acidotic and electrolytes are stable. There is no acute indication for hemodialysis. We will continue to monitor his renal function over the next few days and hopeful that it will begin to turn around with time. 2. Hyperkalemia secondary to acute tubular injury, resolved after Kayexalate. Continue to monitor electrolytes. 3. Anemia. Hemoglobin is stable, likely dilutional. GME ATTESTATION GME ATTESTATION My preceptor for this patient encounter was physically present in the building during the encounter and was fully available. As needed, all aspects of the patient interview, examination, medical decision making process, and medical care plan development were reviewed and approved by the preceptor. Preceptor is aware and concurs with the plan as stated in the body of this note and will attest to such by his/her cosignature. TRI LOZADA DO Sep 19, 2016 12:04
[2016-09-19 14:00] VITALS: BP 175/88
[2016-09-19] MEDS: ACETAMINOPHEN TAB 650MG DOSE (2X325MG) PO PRN (16:58)
[2016-09-19 19:12] VITALS: BP 154/81
[2016-09-19 22:00] VITALS: BP 134/87
[2016-09-20 06:00] VITALS: BP 130/63
[2016-09-20 06:20] LABS: MEAN CORPUSCULAR HEMOGLOBIN 29.1 pg (27.0-33.0); MEAN CORPUSCULAR HGB CONC 34.1 g/dl (32.0-36.5); MEAN CORPUSCULAR VOLUME 85.3 fl (80.0-96.0); RED CELL DISTRIBUTION WIDTH 12.2 % (11.5-14.5)
[2016-09-20 06:42] LABS: ALBUMIN 3.1 GM/DL (3.2-5.2); CALCIUM LEVEL 8.3 MG/DL (8.5-10.1); CREATININE FOR GFR 6.2 MG/DL (0.70-1.30); GLOMERULAR FILTRATION RATE 11.4 (>60); PHOSPHORUS LEVEL 5.4 MG/DL (2.5-4.9); POTASSIUM SERUM 4.3 MEQ/L (3.5-5.1)
[2016-09-20] MEDS: amLODIPine 5 MG TAB PO SCH ×2 (09:00→21:12)
[2016-09-20] MEDS: NICOTINE 14 MG/24 HR TRANSDERMAL TD SCH (11:25)
--- NOTE | 2016-09-20 11:50 | IPNPDOC ---
Assessment/Plan Date Seen The patient was seen on 09/20/16. Problems Problems: (1) Acute renal failure Status: Acute Response to Treatment: Stable Problem Text: Likely secondary to naproxen use The patient has been maintaining an adequate urine output Urine studies noted Renal ultrasound with no acute findings We will continue to monitor the patient's I's and O's and BMP Electrolytes have been stable, no need for dialysis at this time Nephrology on board (2) Hyperkalemia Status: Resolved (3) Depression Status: Chronic Response to Treatment: Stable Problem Text: Patient was transferred over from the inpatient mental health unit No one-on-one sitter recommended at this time We will follow up with psychiatry's recommendation when medically stable (4) Alcohol abuse Status: Chronic Response to Treatment: Stable Problem Text: Patient states that he drinks 4-5 beers on the weekdays, and 20 beers plus liquor on the weekends I advised the patient to abstain from drinking such copious amounts Last drink 6 days ago. In addition, I've advised him that we can set him up with a rehabilitation program upon discharge. (5) Tobacco use Status: Chronic Problem Text: Nicotine patch ordered Plan / VTE VTE Prophylaxis Ordered?: Yes Subjective Review of Systems CC/HPI The patient is a 31-year-old male admitted with a reason for visit of Accute Renal Failure. General: Denies: Chills, Night Sweats Constitutional: Denies: Chills, Fever Eyes: Denies: Pain, Vision change ENT: Denies: Ear Pain, Head Aches Skin: Denies: Lesions, Rash Pulmonary: Denies: Cough, Dyspnea Cardiovascular: Denies: Chest Pain, Palpitations Gastrointestinal: Denies: Abdominal Pain, Nausea, Vomiting Genitourinary: Denies: Dysuria, Frequency Hematologic: Denies: Bleeding Excessively, Bruising Objective Physical Examination General Exam: Positive: Alert, Cooperative, No Acute Distress ENT Exam: Positive: Atraumatic, Mucous membr. moist/pink Chest Exam: Positive: Clear to auscultation, Normal air movement Heart Exam: Positive: Normal S1, Normal S2, Rate Normal Abdomen Exam: Positive: Soft, Negative: Tenderness Extremity Exam: Negative: Edema, Swelling, Tenderness Vital Signs/I&O Vital Signs Date Time Temp Pulse Resp B/P Pulse Ox O2 Delivery O2 Flow Rate FiO2 09/20/16 09:00 75 130/63 09/20/16 06:00 98.4 20 95 Room Air I&O- Last 24 Hours up to 6 AM 09/20/16 06:00 Intake Total 3030 ml Output Total 0 ml Balance 3030 ml Laboratory Data Labs 24H Laboratory Tests 2 09/19/16 22:00: Urine Total Protein 8.9, Urine Total Protein 24 Hour 534.0H, Urine Total Volume 6000 09/20/16 06:00: Albumin 3.1L, Blood Urea Nitrogen 45H, Creatinine 6.20H, Sodium Level 145, Potassium Level 4.3, Chloride Level 112H, Carbon Dioxide Level 23, Anion Gap 10 , Calcium Level 8.3L, Glomerular Filtration Rate 11.4L, Phosphorus Level 5.4H CBC/BMP Laboratory Tests 09/20/16 06:00 Anion Gap 10, Red Blood Count 4.26 L, Mean Corpuscular Volume 85.3, Mean Corpuscular Hemoglobin 29.1, Mean Corpuscular Hemoglobin Concent 34.1, Red Cell Distribution Width 12.2 Microbiology Microbiology 09/17/16 Urine Culture - Final, Complete JAMIN SMITH MD Sep 20, 2016 11:50
--- NOTE | 2016-09-20 12:52 | IPN ---
DATE: 09/20/2016 Mr. Elizalde is seen this morning on his bedside. He is being followed for his acute renal failure. He was initially admitted to inpatient mental health unit due to suicidal ideation. He has a history of heavy dose of nonsteroidal anti-inflammatory drug (NSAID) use prior to admission, which is most likely cause of his acute renal failure. He has been hydrated and oral intake is adequate due to which his IV fluid has been stopped. He is tolerating his diet very well and remains asymptomatic. PHYSICAL EXAMINATION: Temperature 98.4 degrees Fahrenheit, heart rate 76 per minute and respiratory rate 20 per minute. Blood pressure 130/63 mmHg and oxygen saturation 95% on room air. Head is atraumatic. Ears, nose and throat are unremarkable. Pupils equal and reactive to light and sclerae is anicteric. Heart: Sounds are regular and without a pericardial friction rub. Lungs: Clear to auscultation bilaterally. Abdomen: Soft and nontender and without a palpable organomegaly. Bowel sounds are normal. Extremities have no cyanosis or clubbing. Skin has no rash or ulcers. Neurologically, he has no focal deficit. He is awake, alert and oriented times three. Today's labs show WBC count 11.0, hemoglobin 12.4 and hematocrit 36.3. Platelets 200. Sodium 145, potassium 4.3. BUN 45 and creatinine 6.20. Calcium level 8.3 and phosphorus 5.4. He had a 24-hour urine collection done yesterday which showed total volume 6000 mL and total protein is only 534 mg. PROBLEMS: 1. Acute renal failure, most likely related to high-dose NSAID use. This is acute tubular dysfunction, and his kidney function is likely to improve over the next few days. I doubt any glomerular etiology. The patient is completely asymptomatic with normal electrolytes and well compensated volume status. He was hydrated aggressively without any change in kidney function. At present, his oral intake is adequate and he will continue with the same. There is no indication for dialysis at this point. 2. Hyperphosphatemia. This is mild and related to acute renal failure. It is likely to improve as his kidney function improves. I am optimistic that his kidney function is going to start improving over next 24-48 hours.
[2016-09-20 14:00] VITALS: BP 136/80
[2016-09-20 21:10] VITALS: BP 169/97
[2016-09-20] MEDS: ACETAMINOPHEN TAB 650MG DOSE (2X325MG) PO PRN (21:16)
[2016-09-20 22:00] VITALS: BP 139/84
[2016-09-21 06:00] VITALS: BP 137/81
[2016-09-21 06:42] LABS: MEAN CORPUSCULAR HEMOGLOBIN 29.8 pg (27.0-33.0); MEAN CORPUSCULAR HGB CONC 35.1 g/dl (32.0-36.5); MEAN CORPUSCULAR VOLUME 85.1 fl (80.0-96.0); RED CELL DISTRIBUTION WIDTH 12.3 % (11.5-14.5); WHITE BLOOD COUNT 9.2 K/mm3 (4.0-10.0)
[2016-09-21 07:02] LABS: ALBUMIN 3.3 GM/DL (3.2-5.2); CALCIUM LEVEL 8.6 MG/DL (8.5-10.1); CREATININE FOR GFR 6.08 MG/DL (0.70-1.30); GLOMERULAR FILTRATION RATE 11.6 (>60); PHOSPHORUS LEVEL 5.8 MG/DL (2.5-4.9); POTASSIUM SERUM 4.3 MEQ/L (3.5-5.1)
[2016-09-21] MEDS: amLODIPine 5 MG TAB PO SCH ×2 (09:29→21:00)
[2016-09-21] MEDS: NICOTINE 14 MG/24 HR TRANSDERMAL TD SCH (09:31)
--- NOTE | 2016-09-21 13:29 | IPNPDOC ---
Assessment/Plan Date Seen The patient was seen on 09/21/16. Problems Problems: (1) Acute renal failure Status: Acute Response to Treatment: Improving Problem Text: Likely secondary to naproxen use The patient has been maintaining an adequate urine output Urine studies noted Renal ultrasound with no acute findings We will continue to monitor the patient's I's and O's and BMP Electrolytes have been stable, no need for dialysis at this time Nephrology on board (2) Hyperkalemia Status: Resolved (3) Depression Status: Chronic Response to Treatment: Stable Problem Text: Patient was transferred over from the inpatient mental health unit No one-on-one sitter recommended at this time We will follow up with psychiatry's recommendation when medically stable (4) Alcohol abuse Status: Chronic Response to Treatment: Stable Problem Text: Patient states that he drinks 4-5 beers on the weekdays, and 20 beers plus liquor on the weekends I advised the patient to abstain from drinking such copious amounts Last drink 6 days ago. In addition, I've advised him that we can set him up with a rehabilitation program upon discharge. (5) Tobacco use Status: Chronic Problem Text: Nicotine patch ordered Plan / VTE VTE Prophylaxis Ordered?: Yes Subjective Review of Systems CC/HPI The patient is a 31-year-old male admitted with a reason for visit of Accute Renal Failure. General: Denies: Chills, Night Sweats Constitutional: Denies: Chills, Fever Eyes: Denies: Pain, Vision change ENT: Denies: Ear Pain, Head Aches Skin: Denies: Lesions, Rash Pulmonary: Denies: Cough, Dyspnea Cardiovascular: Denies: Chest Pain, Palpitations Gastrointestinal: Denies: Abdominal Pain, Nausea, Vomiting Hematologic: Denies: Bleeding Excessively, Bruising Objective Physical Examination General Exam: Positive: Alert, Cooperative, No Acute Distress ENT Exam: Positive: Atraumatic, Mucous membr. moist/pink Chest Exam: Positive: Clear to auscultation, Normal air movement Heart Exam: Positive: Normal S1, Normal S2, Rate Normal Abdomen Exam: Positive: Soft, Negative: Tenderness Extremity Exam: Negative: Edema, Swelling, Tenderness Vital Signs/I&O Vital Signs Date Time Temp Pulse Resp B/P Pulse Ox O2 Delivery O2 Flow Rate FiO2 09/21/16 09:29 48 133/82 09/21/16 06:00 95.6 18 96 Room Air I&O- Last 24 Hours up to 6 AM 09/21/16 05:59 Intake Total 2040 ml Output Total 0 ml Balance 2040 ml Laboratory Data Labs 24H Laboratory Tests 2 09/21/16 06:22: Albumin 3.3, Blood Urea Nitrogen 43H, Creatinine 6.08H, Sodium Level 143, Potassium Level 4.3, Chloride Level 108H, Carbon Dioxide Level 24, Anion Gap 11 , Calcium Level 8.6, Glomerular Filtration Rate 11.6L, Phosphorus Level 5.8H CBC/BMP Laboratory Tests 09/21/16 06:22 Anion Gap 11, Red Blood Count 4.37, Mean Corpuscular Volume 85.1, Mean Corpuscular Hemoglobin 29.8, Mean Corpuscular Hemoglobin Concent 35.1, Red Cell Distribution Width 12.3 Microbiology Microbiology 09/17/16 Urine Culture - Final, Complete JAMIN SMITH MD Sep 21, 2016 13:29
[2016-09-21 14:00] VITALS: BP 133/67
[2016-09-21 14:11] LABS: ORGANISM ID Not indicated. (.); SPECIMEN SOURCE Urine (.)
[2016-09-21 22:00] VITALS: BP 145/88
[2016-09-22 00:06] LABS: COMPLEMENT TOTAL (CH50) > 63 U/mL (42-60)
--- NOTE | 2016-09-22 02:11 | IPN ---
DATE OF SERVICE: 09/21/2016 SUBJECTIVE: Patient was seen and examined at the bedside today in the morning. He was having his breakfast. He did not have any active complaints and he has good urine output. REVIEW OF SYSTEMS: Patient denies any fever, chills, rigors, headache, nausea, vomiting, chest pain, shortness of breath, pain abdomen, constipation, diarrhea, swelling of the legs. Rest of review of systems is negative. OBJECTIVE: Vital signs: Temperature is 97.5 degrees Fahrenheit. Blood pressure is 133/67. Pulse is 71, respiratory rate of 18, saturating 98% on room air. Intake and output: Urine output is not recorded at this time. Weight on the bed scale is 103.4 kg. PHYSICAL EXAMINATION: General: Patient is awake, alert, oriented times three sitting in the bed. No apparent distress. Head and neck exam: Extraocular muscles intact. Pupils equally round and reactive to light. Neck is supple. There is no jugular venous distention (JVD). Mucous membranes are moist. Cardiovascular: S1, S2, regular rate. No murmur, rub or gallop. Respiratory: Chest is clear to auscultation bilaterally. Bilateral equal air entry. Abdomen: Soft, positive bowel sounds, nontender. No ascites. No organomegaly. Extremities: No clubbing or cyanosis. There is no edema of the bilateral lower extremities. Central nervous system: No focal neurological deficit. Power is 5/5 in all extremities. LABORATORY REVIEW: CBC showed a WBC of 9.2, hemoglobin 13.1, platelets are 213. BMP showed sodium of 143, potassium 4.3, chloride 108, bicarbonate 24, BUN 43, creatinine 6.08. It was 6.2 yesterday. Phosphorus is 5.8, albumin is 3.3. CURRENT MEDICATIONS: Patient's current medications were all reviewed by me. He is currently on: - Tylenol as needed - amlodipine 5 mg twice a day - nicotine patch ASSESSMENT: 31-year-old male with a past medical history of depression, admitted this time with acute renal failure after taking a suicidal overdose of nonsteroidal antiinflammatory drugs (NSAIDs). PLAN: 1. Acute renal failure. It is most likely secondary to NSAID use. Patient is in nonoliguric renal failure at this time. His creatinine has plateaued. His electrolytes are acceptable at this time. There is no metabolic acidosis. Continue to monitor for now. No urgent need to do hemodialysis. Avoid NSAIDs and contrast studies and angiotensin-converting enzyme (VANE) inhibitors at this time. 2. Hypertension. Patient is currently on amlodipine. Blood pressure is acceptable at this time. Continue the current dose. 3. Hyperphosphatemia. Hyperphosphatemia is secondary to acute renal failure. His phosphorus is going up. I am going to add Renvela with meals while the kidney function is improving.
[2016-09-22 06:00] VITALS: BP 118/68
[2016-09-22 06:54] LABS: MEAN CORPUSCULAR HEMOGLOBIN 29.6 pg (27.0-33.0); MEAN CORPUSCULAR HGB CONC 34.6 g/dl (32.0-36.5); MEAN CORPUSCULAR VOLUME 85.7 fl (80.0-96.0); RED CELL DISTRIBUTION WIDTH 12.3 % (11.5-14.5); WHITE BLOOD COUNT 9.7 K/mm3 (4.0-10.0)
[2016-09-22 07:03] LABS: ALBUMIN 3.6 GM/DL (3.2-5.2); CALCIUM LEVEL 8.9 MG/DL (8.5-10.1); CREATININE FOR GFR 5.52 MG/DL (0.70-1.30); PHOSPHORUS LEVEL 5.5 MG/DL (2.5-4.9); POTASSIUM SERUM 4.6 MEQ/L (3.5-5.1)
[2016-09-22 09:00] VITALS: BP 118/68
[2016-09-22] MEDS: amLODIPine 5 MG TAB PO SCH (09:00)
[2016-09-22] MEDS: NICOTINE 14 MG/24 HR TRANSDERMAL TD SCH (09:20)
[2016-09-22] MEDS: (RENVELA) SEVELAMER **CARBONate** 800 MG TAB PO SCH ×3 (09:21→18:04)
--- NOTE | 2016-09-22 11:35 | IPNPDOC ---
Date/Time Seen The patient was seen on 09/22/16 at 11:23. Progress Note DATE OF ENCOUNTER: 09/22/2016 SUBJECTIVE: Patient was seen this morning at bedside. He denies any back or abdominal pain. States that he feels well this morning. States that he has been urinating frequently. He also reports that he has been drinking a lot of fluid, specifically water and tatiana tony. Review of systems is negative for chest pain, palpitations, shortness of breath , nausea, vomiting, abdominal pain, diarrhea, headache, lightheadedness, dizziness, visual changes, fever, chills, hematuria, dysuria, rash. OBJECTIVE: Vital Signs Date Time Temp Pulse Resp B/P Pulse Ox O2 Delivery O2 Flow Rate FiO2 09/22/16 09:00 67 118/68 09/22/16 06:00 95.2 14 93 Room Air I&O- Last 24 Hours up to 6 AM 09/22/16 06:00 Intake Total 2510 ml Balance 2510 ml GENERAL: Well-nourished, well developed. In no acute distress. HEENT: Normocephalic, atraumatic. Extraocular movements are intact. No scleral icterus. Moist mucosa. NECK: Supple. No jugular venous distention. HEART: S1, S2. Regular rate and rhythm, no murmur appreciated LUNGS: Clear to auscultation bilaterally. No wheezes, rales, or rhonchi appreciated. ABDOMEN: soft, non-tender, nondistended. Bowel sounds are present. No rebound, guarding or rigidity. EXTREMITIES: No cyanosis or lower extremity edema. Positive pedal pulses bilaterally. SKIN: Warm and dry. No rashes noted. NEUROLOGIC: Alert and oriented x 3. No focal deficits. LABORATORY DATA: 09/22/16 06:42 Red Blood Count 4.60, Mean Corpuscular Volume 85.7, Mean Corpuscular Hemoglobin 29.6, Mean Corpuscular Hemoglobin Concent 34.6, Red Cell Distribution Width 12.3 , Albumin 3.6, Anion Gap 10, Calcium Level 8.9, Glomerular Filtration Rate 13.0L , Phosphorus Level 5.5H MICROBIOLOGY: Urine culture shows no growth. IMAGING: Renal Ultrasound unremarkable. ASSESSMENT/PLAN: Mr. Elizalde is a 31-year-old male with past medical history significant for depression was admitted to inpatient mental health unit until he started experiencing increasing abdominal pain and back pain and found to have acute kidney injury after taking high dose NSAIDs. 1. Acute renal failure, secondary to high dose NSAIDs causing nephrotoxicity. Creatinine has improved. He does not have any history of chronic renal disease and ultrasound was unremarkable, which is reassuring. He has good oral intake and has good urinary output. He is not acidotic, electrolytes are stable, volume status is stable and he does not have any uremic signs. There is no acute indication for hemodialysis. Given that his renal function has begun to improve, we anticipate continued improvement over the next several days. 2. Hyperphosphatemia. Patient is currently on Renvela with meals. As renal function improves, he could be taken off of this as outpatient. 3. Hypertension. Patient is currently on Norvasc and blood pressure is stable. 4. Mild anemia. Hemoglobin is stable. DISPOSITION: Patient's renal function is improving. Anticipate continued improvement over the next several days. He can follow up with nephrology as outpatient next week. GME ATTESTATION GME ATTESTATION My preceptor for this patient encounter was physically present in the building during the encounter and was fully available. As needed, all aspects of the patient interview, examination, medical decision making process, and medical care plan development were reviewed and approved by the preceptor. Preceptor is aware and concurs with the plan as stated in the body of this note and will attest to such by his/her cosignature. ATTENDING NOTE Nephrology: Pt was seen and examined with the resident in the morning. I agree with the assessment and recommendations. TRI LOZADA DO Sep 22, 2016 11:35 PHILL HUBBARD MD Sep 24, 2016 21:11
[2016-09-22 14:00] VITALS: BP 126/84
[2016-09-22] MEDS ORDERED: AMLO5TAB2 PO (16:22)
[2016-09-22] MEDS ORDERED: RENV2TAB PO (16:22)
[2016-09-22] MEDS ORDERED: NICO14PA TD (16:22)
--- NOTE | 2016-09-22 16:55 | CR ---
DATE OF CONSULTATION: 09/22/2016 CONSULTATION REPORT FOR: Dr. 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 He stated that he was depressed. He felt indirectly responsible for the of his , who killed herself "with my gun." He stated that he was having intrusive thoughts and that he deserved to the same way she did. He also stated that he continued experiencing feelings of guilt and depression since that time. He admitted having fleeting thoughts of suicide intermittently. He denied any psychiatric problems or depression prior to the of his in December 2014. He also stated that since his he has been drinking heavily, mostly beer and rum. He reported there was no point in going with his life. He also reported overwhelming feelings of guilt and emotions, poor sleep, rumination over his 's , decreased energy. After being admitted to psychiatry, he reported abdominal pain. He was evaluated by the medical team and was found to have acute renal failure, so he was transferred to the medical floor for treatment and stabilization. He is now medically clear. During the interview today, the patient is minimizing the events that lead to his admission. The patient is focused on discharge, therefore denying any symptoms. He states that he is ready to go and continue his treatment on an outpatient basis. In spite of not being able to take any pharmacological treatment for his depression because of his acute renal failure, he has very low insight about his psychiatric problem. During the interview, there is no evidence of psychotic symptoms. No auditory or visual hallucinations or delusions were noted. PAST MEDICAL HISTORY: The patient has been diagnosed with acute renal failure, hyperkalemia, mild rhabdomyolysis, status post cyst removal of the upper back, wisdom teeth extraction. PAST PSYCHIATRIC HISTORY: The patient had no prior psychiatric history before his 's in December 2014. FAMILY HISTORY: Noncontributory for psychiatric problems, although it is recommended that his parents had a history of alcoholism. SOCIAL HISTORY: The patient was born and raised in [facility]. He moved to the [facility] in [place]. He completed high school and some college credits. He has no legal problems. 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 As stated above, he is a . His committed suicide in December 2014. SUBSTANCE ABUSE HISTORY: As above, the patient has been drinking excessively, alcohol, mostly beer and rum, after his in December 2014. REVIEW OF SYSTEMS: CONSTITUTIONAL: No weight loss, fever, chills, weakness, or fatigue. HEENT: No visual loss, blurred vision, double vision, or yellowish sclerae. No hearing loss, sneezing, congestion, runny nose, or sore throat. SKIN: No rash or itching. CARDIOVASCULAR: No chest pain, chest pressure, chest discomfort, palpitations, or edema. RESPIRATORY: No shortness of breath, cough, or sputum. GASTROINTESTINAL: No anorexia, nausea, vomiting, or diarrhea. No abdominal pain or blood. GENITOURINARY: No burning or pain on urination. NEUROLOGICAL: No headache, dizziness, syncope, paralysis, ataxia, numbness, or tingling. MUSCULOSKELETAL: No muscle pain, back pain, joint pain or stiffness. HEMATOLOGIC: No anemia, bleeding, or bruising. LYMPHATICS: No history of splenectomy. ENDOCRINOLOGIC: No report of sweating, cold or heat intolerance. No polyuria or polydipsia. ALLERGIES: No history of asthma, hives, eczema, or rhinitis. PHYSICAL EXAMINATION: The patient is a well-developed, well-nourished male in no acute distress. HEENT: Normocephalic, atraumatic. Extraocular muscles are intact. Pupils aer equal, round, and reactive to light and accommodation. NECK: Supple with no jugular venous distention (JVD). LUNGS: Clear to auscultation. HEART: Regular rate and rhythm. No murmur. ABDOMEN: Soft, nontender, nondistended. Positive bowel sounds. EXTREMITIES: No clubbing, cyanosis, or edema. MENTAL STATUS EXAMINATION: The patient is dressed in [facility]. The patient is cooperative but frustrated because of his hospitalization. Speech is clear, coherent. Fair eye contact. Mood is anxious and depressed. Affect is somewhat labile. The patient is oriented to time, place, person, and situation. He maintains attention and concentration fairly. Instant recall, recent and remote memory are intact. Thought processes are coherent, logical and goal-directed. The patient does not have auditory or visual hallucinations. The patient does not have paranoid, persecutory, somatic, grandiose, or sabianism delusions. The patient denies suicidal or homicidal ideation but he is focused on discharge issues and minimizing all the events that lead to his admission. Judgment and insight are poor. DIAGNOSIS: AXIS I: Major depressive disorder. Alcohol abuse. AXIS II: Deferred. AXIS III: Status post acute renal failure. RECOMMENDATIONS: The patient will be transferred to the psychiatric unit to continue his treatment for his depression. The patient has not been able to take medication for his depression due to his acute renal failure, so we will monitor him closely and start the medication as soon as possible.
--- NOTE | 2016-09-23 09:56 | DSES ---
DATE OF ADMISSION: 09/17/2016 DATE OF DISCHARGE: 09/22/2016 PRIMARY CARE PROVIDER: Semaj Osei PSYCHIATRIST: Dr. Colindres FINAL DIAGNOSES: 1. Acute renal failure secondary to naproxen overdose, possibly suicide attempt. 2. Depression. 3. Hyperkalemia. 4. Alcohol abuse. 5. Smoking. HISTORY OF PRESENT ILLNESS: This is a 31-year-old male patient with underlying medical history of depression who was initially admitted to inpatient mental health for major depression. Was transferred to general medical floor for acute renal failure. Prior to the admission, the patient was drinking heavily. Has also fallen, broken his teeth. Has mild pain. It was right upper lateral incisor and right central incisor pain with eating and drinking. Later, when the patient was [facility], the patient reported some vague abdominal pain with nonspecific physical findings. Laboratory was sent. Finding elevated creatinine. The patient also reported poor by mouth intake, mild nausea. No vomiting. Denies any fevers, chills, fatigue, chest pain, pressure, or discomfort, cough. HOSPITAL COURSE: The patient's creatinine on admission was 5.28. Nephrology has been consulted. Later, with further investigation, the patient reported taking 20 of naproxen. The patient initially reported feeling very discouraged that no one cares about his pain, subsequently taking naproxen. Later, stated that he just took it for the pain. History was very inconsistent. One-to-one observation was done. Nephrology was consulted. Intravenous (IV) hydration initially provided. Blood pressure medication was adjusted. The patient's kidney function was followed. The patient was making urine. Electrolytes improved. The case discussed with Dr. Marley. As per Dr. Marley, from renal perspective, avoid nephrotoxic agents, avoid nonsteroidal antiinflammatory drugs (NSAIDs). The patient was cleared [facility]. Continue blood pressure medication. Continue Renvela. Followup with nephrology as outpatient. The case was discussed with Dr. Colindres. The patient will benefit from admission [facility]. Subsequently, the patient transferred to inpatient [facility] for further care and treatment. Recommend outpatient followup with primary care provider and nephrology after discharge. Temperature 97, pulse 71, respiration 16, blood pressure 126/84, pulse oximetry 98% on room air. LABORATORY: WBC 9.7, hemoglobin and hematocrit 13.6/39.4, platelets 235. Chemistry: Sodium 143, potassium 4.6, chloride 107, bicarbonate 26, BUN 46, creatinine 5.5. DISCHARGE MEDICATIONS: - Norvasc 5 mg by mouth daily - nicotine patch 14 mg transdermal daily - Renvela 800 mg by mouth with meals three times a day DISCHARGE INSTRUCTIONS: Followup with psychiatry for further care at the inpatient mental health while the patient is inpatient. Followup basic metabolic panel every 48 hours. After discharged, followup with primary care provider in 7 days and acid patroller in 7-10 days for further recommendation. Further care as per psychiatry.
== END 2016-09-22 18:10 | DRG 918 ==
LOC: M MS5PR 17:33
PROVIDERS: ADMIT Internal Medicine; ATTEND Hospitalist
DX: T39.392A Poisoning by other nonsteroidal anti-inflammatory drugs [NSAID], intentional self-harm, initial encounter (principal); N17.9 Acute kidney failure, unspecified; M62.82 Rhabdomyolysis; F17.210 Nicotine dependence, cigarettes, uncomplicated; F32.9 Major depressive disorder, single episode, unspecified; E87.5 Hyperkalemia; D64.9 Anemia, unspecified; F10.10 Alcohol abuse, uncomplicated; E83.39 Other disorders of phosphorus metabolism; Y92.019 Unspecified place in single-family (private) house as the place of occurrence of the external cause

== ENCOUNTER 2016-09-22 18:17 | Inpatient (IN) | payer OTHER ==
[~2016-09-22] VITALS: Ht 182.9 cm; Wt 96.3 kg
[~2016-09-22 18:17] MED LIST changes: +AMLO5TAB2 PO; +NICO14PA TD; +RENV2TAB PO
[2016-09-22 18:24] VITALS: BP 152/94
[2016-09-22 19:05] VITALS: BP 152/94
[2016-09-22] MEDS ORDERED: ACETAMINOPHEN TAB 650MG DOSE (2X325MG) PO PRN (20:00)
[2016-09-22] MEDS: amLODIPine 5 MG TAB PO SCH (21:00)
[2016-09-23 06:31] VITALS: BP 120/81
[2016-09-23] MEDS: (RENVELA) SEVELAMER **CARBONate** 800 MG TAB PO SCH ×3 (08:36→17:50)
[2016-09-23] MEDS: NICOTINE 14 MG/24 HR TRANSDERMAL TD SCH (08:37)
[2016-09-23] MEDS: amLODIPine 5 MG TAB PO SCH ×2 (08:37→21:00)
--- NOTE | 2016-09-23 12:29 | HPEPDOC ---
Medical History and Physical Date of Admission Sep 22, 2016 at 18:17 History and Physical PCP: [facility] ATTENDING: Dr. Chilo German HPI: 31yoM admitted to [facility] for Unspecified depressive disorder, being medically examined today. Patient was admitted to the medical floor from 09/17/16 - 09/22/16 related to acute renal failure secondary to naproxen overdose. Pt states that prior to admission he was drinking heavily. He had apparently fallen prior to admission and broke 2 of his teeth. He still reporting some mild pain and sensitivity with cold temperatures in the right upper lateral incisor and right central incisor with eating or drinking. Denies any fevers, chills, weakness, fatigue, BROCK, CP, SOB, cough, palpitations, abdominal pain, N/V /D or changes in bowel or bladder habits. PMHx: Depression PSHX: Benign cyst removed upper back [place] teeth extraction Circumcision 19 yo SOCHX: Resides in: [place], From [facility]. 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 On weekends a bottle of liquor and several beers per day, drinking to the point of blackout. Illicit Drugs: Denies IV Drug Use: Denies Tattoos done unprofessionally: Denies FAMHX: Mother: Alive, history of alcoholism Father: Unknown, history of alcoholism Siblings: None Children: None Unexpected deaths due to medical reasons: None. ROS: As noted in HPI, otherwise 11pt ROS of systems reviewed and unremarkable PE: GEN: 31yoM, appears stated age. Well-nourished, well developed. No acute distress. Alert and oriented x 3. Pleasant, interactive. HEENT: Normocephalic, atraumatic. Pupils are equal, round, and reactive to light. Extraocular movements are intact. No nystagmus appreciated. Sclera are nonicteric. Conjunctiva without injection. Nose midline. Nasal turbinates without bogginess. EACs both patent BL. TMs both visualized and roberts with good cone of light, no bulging or erythema. No facial asymmetry. Moist mucous membranes. Dentition with broken teeth noted Rt lateral and central upper incisor. Pharynx pink and moist, no cobblestoning. Neck supple, trachea midline. No lymphadenopathy or thyromegaly appreciated. CHEST: Regular rate and rhythm, +S1, +S2 LUNGS: Clear to auscultation bilaterally. No wheezes, rales, or rhonchi. Breathing appears symmetric and easy. Patient is speaking in full sentences. No accessory muscle use. ABD: Round, soft, non-tender, non-distended. +Bowel sounds throughout. No rebound or guarding. No costovertebral angle tenderness. EXT: Pulses 2+ bilaterally dorsalis pedis and radial. No lower extremity edema appreciated. SKIN: [place], dry, warm. Capillary refill <2sec. No rashes. NEURO: Alert and oriented x 3. Cranial nerves III-XII are intact. No focal deficits appreciated. EKG: pending A&P: 31yoM admitted to [facility] for MDD 1. Psych. Plan per Psychiatry. Obtain baseline EKG on file. 2. Nicotine dependence. Patch available. 3. Alcohol use. Per Psychiatry. 4. Follow up with PCP on discharge. [facility]. 5. Dental pain, related to dental injury. Will need follow-up with dental provider at discharge. Continue with tylenol as needed. 6. HTN. Continue with Norvasc 5 mg twice a day with hold parameters. 7. Acute renal failure secondary to naproxen overdose. Recheck BMP in a.m. and every 48 hours. Avoid any nephrotoxins. Plan is for follow-up with Nephrology 7- 10days. 8. Staff member present throughout exam. parminder Rivers. Vital Signs Vital Signs Label Value Date Time Patient Temperature 98.0 degrees F 09/23/16 0631 Temperature Source Tympanic 09/23/16 0631 Pulse 50 09/23/16 0631 Respiratory Rate 16 bpm 09/23/16 0631 Blood Pressure Assessment 120/81 (94) 09/23/16 0631 Bedside Pulse Oximetry 100 % 09/22/161904 Item Value Date Time Oxygen Delivery Method Room Air 09/22/161904 Laboratory Data Labs 24H Item Value Date Time White Blood Count 9.7 K/mm3 09/22/16 06 Red Blood Count 4.60 M/mm3 09/22/16 0642 Hemoglobin 13.6 g/dl L 09/22/16 06 Hematocrit 39.4 % L 09/22/16 06 Mean Corpuscular Volume 85.7 fl 09/22/16 0642 Mean Corpuscular Hemoglobin 29.6 pg 09/22/16 0642 Mean Corpuscular Hemoglobin Concent 34.6 g/dl 09/22/16 0642 Red Cell Distribution Width 12.3 % 09/22/16 0642 Platelet Count 235 k/mm3 09/22/16 0642 Sodium Level 143 MEQ/L 09/22/16 0642 Chloride Level 107 MEQ/L 09/22/16 0642 Potassium Level 4.6 MEQ/L 09/22/16 0642 Carbon Dioxide Level 26 MEQ/L 09/22/16 0642 Anion Gap 10 MEQ/L 09/22/16 0642 Blood Urea Nitrogen 46 MG/DL H 09/22/16 0642 Creatinine 5.52 MG/DL H 09/22/16 0642 Glomerular Filtration Rate 13.0 L 09/22/16 0642 Calcium Level 8.9 MG/DL 09/22/16 0642 Phosphorus Level 5.5 MG/DL H 09/22/16 0642 Albumin 3.6 GM/DL 09/22/16 0642 Home Medications Scheduled Amlodipine Besylate (Amlodipine Besylate) 5 Mg Tab 5 MG PO DAILY Nicotine (Nicotine Transdermal Syst) 14 Mg/24 Hr Dis 1 PATCH TD DAILY Sevelamer Carbonate (Renvela) 800 Mg Tab 800 MG PO WM Allergies Coded Allergies: No Known Allergies (Unverified , 09/14/16) Sandra Lewis Sep 23, 2016 12:29
--- NOTE | 2016-09-23 16:15 | MHHPE ---
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 He stated he was depressed, he felt indirectly responsible for the of his who killed herself "with my gun." He stated that he was having intrusive thoughts and that he deserved to the same way she did. He also stated that he continued to experience feelings of guilt and depression since that time. He admitted to having fleeting thoughts of suicide intermittently. He denied any psychiatric problems or depression prior to the of his in December 2014. He also stated that since his he has been drinking heavily, mostly beer and rum. He reported there was no point in going on with his life. He also reported overwhelming feelings of guilt and emotions, poor sleep, rumination over his 's , and decreased energy. After being admitted to psychiatry, he complained of abdominal pain. He was evaluated by the medical team and was found to have acute renal failure. He was transferred to the medical floor for stabilization. He is now medically cleared and has been transferred to our unit for continuation of treatment. The patient is minimizing the events that led to his admission and is only focused on discharge. He is denying any symptoms. He has very little insight. He states that he is ready to go and continue his treatment on an outpatient basis. He has not been able to take his medication because of his acute renal failure. During the interview there is no evidence of psychotic symptoms, no auditory or visual hallucinations or delusions. PAST MEDICAL HISTORY: Patient has been diagnosed with acute renal failure, hyperkalemia, and mild rhabdomyolysis, he is status post cyst removal on his upper back and wisdom teeth extraction. PAST PSYCHIATRIC HISTORY: Patient had no psychiatric problems before the of his in December 2014. Now he has been diagnosed with depression and alcohol abuse. FAMILY HISTORY: Noncontributory for psychiatric problems although it is reported in the chart that his parents had a history of alcoholism. SOCIAL HISTORY: He was born and raised in [facility]. He moved to the [facility] in [place]. He completed high school and some college credits. He has no legal problems. 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 As stated above, he is a , his committed suicide in December 2014. SUBSTANCE ABUSE HISTORY: As above, the patient has been drinking excessively, mostly beer and rum, after his in December 2014. REVIEW OF SYSTEMS: CONSTITUTIONAL: No weight loss, fever, chills, weakness, or fatigue. HEENT: No visual loss, blurred vision, double vision, or yellowed sclerae. No hearing loss, sneezing, congestion, runny nose, or sore throat. SKIN: No rash or itching. CARDIOVASCULAR: No chest pain, chest pressure, chest discomfort, palpitations, or edema. RESPIRATORY: No shortness of breath, cough, or sputum. GASTROINTESTINAL (GI): No anorexia, nausea, vomiting, or diarrhea. No abdominal pain or blood. GENITOURINARY (): No burning or pain on urination. NEUROLOGICAL: No headache, dizziness, syncope, paralysis, ataxia, numbness, or tingling. MUSCULOSKELETAL: No muscle pain, back pain, joint pain, or stiffness. HEMATOLOGIC: No anemia, bleeding, or bruising. LYMPHATICS: No history of splenectomy. ENDOCRINOLOGIC: No report of sweating, cold or heat intolerance. No polyuria or polydipsia. ALLERGY: No history of asthma, hives, eczema, or rhinitis. PHYSICAL EXAMINATION: GENERAL: Patient is a well-developed, well-nourished male in no acute distress. HEENT: Normocephalic, atraumatic. Extraocular muscles are intact. Pupils are equal, round, and reactive to light and accommodation. NECK: Supple with no jugular venous distention (JVD). LUNGS: Clear to auscultation. HEART: Regular rate and rhythm, no murmur. ABDOMEN: Soft, nontender, nondistended. Positive bowel sounds. EXTREMITIES: No cyanosis, clubbing, or edema. MENTAL STATUS EXAMINATION: Patient is dressed in [facility]. Patient is frustrated, somewhat uncooperative, and focused on discharge. Speech is clear, coherent, but soft and monotone. Mood is anxious and depressed. Affect is labile, restricted. Patient is oriented to time, place, person and situation. Maintains attention and concentration correctly. Instant recall, recent and remote memory are fair. Thought processes are coherent, logical, and goal-directed. Patient does not have auditory or visual hallucinations. Patient does not have paranoid, persecutory, somatic, grandiose, or congregational delusions. Patient denies suicidal or homicidal ideation, but again he is focused on discharge issues and minimizes all the events that led to his admission. Judgment and insight are poor. DIAGNOSES: AXIS I: Major depressive disorder. Alcohol abuse. AXIS II: Deferred. AXIS III: Status post acute renal failure. INITIAL TREATMENT PLAN: Patient was admitted, complete history was obtained. With his permission, family will be contacted and database will be expanded. His medication regimen will be reviewed and changed accordingly. He will be provided with protected environment. He will be treated with individual, group, and milieu therapies. He will also receive supportive psychoeducation. Discharge planning will commence immediately. Length of his stay will be between 7-10 days. Outpatient followup will be strongly recommended. The treatment plan will focus initially on depression, risk for suicide, and substance abuse.
[2016-09-23 18:00] VITALS: BP 127/58
[2016-09-24 06:38] VITALS: BP 133/76
[2016-09-24 07:25] LABS: CALCIUM LEVEL 9.3 MG/DL (8.5-10.1); GLOMERULAR FILTRATION RATE 26.3 (>60); POTASSIUM SERUM 4.3 MEQ/L (3.5-5.1)
[2016-09-24] MEDS: amLODIPine 5 MG TAB PO SCH ×2 (09:00→21:00)
[2016-09-24] MEDS: PARoxetine 10MG TABLET PO SCH (09:40)
[2016-09-24] MEDS: NICOTINE 14 MG/24 HR TRANSDERMAL TD SCH (09:40)
[2016-09-24] MEDS: (RENVELA) SEVELAMER **CARBONate** 800 MG TAB PO SCH ×3 (09:40→17:44)
--- NOTE | 2016-09-24 14:51 | IPN ---
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 He stated he was depressed. He felt indirectly responsible for the of his who killed herself "with my gun." He stated that he was having intrusive thoughts and that he deserved to the same way she did. He also stated that he continued to experience feelings of guilt and depression since that time. He admitted having fleeting thoughts of suicide intermittently. Also, the patient has been drinking excessively since the of his . MEDICATIONS: Pharmacological treatment has not been started because the patient had an acute renal failure. SUBJECTIVE: "I'm fine, I want to go home" OBJECTIVE: The patient continues angry because of his involuntary hospitalization. He has very little insight. Actually he did no tell staff that he overdosed with the naproxen at admission and had to be transferred to the medical floor in an emergency when the labs showed that he had a renal failure. I told him the line erector has allowed to start a low dosage of Paxil. MENTAL STATUS EXAMINATION: The patient is dressed in [facility]. The patient is partially cooperative but frustrated and limited on the responses to the questions. He has poor eye contact. Speech is low and monotone. Mood is depressed and anxious. Affect is restricted. No delusions or hallucinations. Memory is intact. The patient is fully oriented. Associations are intact. Thinking is logical. Thought content is appropriate. The patient continues to deny suicidal or homicidal ideation, but again, as stated above, the patient is focused on discharge issues and minimizing any symptoms. The patient's insight and judgment is poor. ASSESSMENT: 1. Major depressive disorder. 2. Alcohol abuse. 3. Status post acute renal failure. PLAN: 1. Start Paxil 5 mg by mouth every morning and monitor for any possible side effect. 2. Continue medication management, individual and group therapy as tolerated by the patient.
[2016-09-24 18:00] VITALS: BP 139/62
[2016-09-25 06:34] VITALS: BP 125/78
[2016-09-25] MEDS: (RENVELA) SEVELAMER **CARBONate** 800 MG TAB PO SCH ×3 (07:54→18:04)
[2016-09-25] MEDS: PARoxetine 10MG TABLET PO SCH (07:55)
[2016-09-25] MEDS: NICOTINE 14 MG/24 HR TRANSDERMAL TD SCH (07:55)
[2016-09-25] MEDS: amLODIPine 5 MG TAB PO SCH ×2 (07:56→21:00)
[2016-09-25] MEDS ORDERED: PARoxetine 10MG TABLET PO ONE (09:45)
--- NOTE | 2016-09-25 18:08 | IPN ---
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 He stated he was depressed. He felt indirectly responsible for the of his who killed herself "with my gun." He stated that he was having intrusive thoughts that he deserved to "the same way she did." He also stated that he continued to experience feelings of guilt and depression since that time. He admitted having fleeting thoughts of suicide intermittently. The patient also has been drinking excessively since the of his . MEDICATIONS: - Paxil 5 mg by mouth every morning SUBJECTIVE: "I'm feeling better." OBJECTIVE: The patient is not as angry as he was this past couple of days. The patient is able to discuss some of his problems. He stated that he at times sees the image of his , and it is very distressing. The patient is more cooperative and more insightful. Denies side effect from 5 mg of Paxil. MENTAL STATUS EXAMINATION: The patient is dressed in [facility]. The patient is clean and well groomed. Fair eye contact. His speech is soft and monotone. Mood is depressed and anxious. Affect is somewhat labile and restricted. No delusions or hallucinations. Memory is fair. The patient is fully oriented. Associations are intact. Thinking is logical. Thought content is appropriate. The patient is able to contract for safety in the unit. Insight and judgment are limited. ASSESSMENT: 1. Major depressive disorder. 2. Alcohol abuse. 3. Status post acute renal failure. PLAN: 1. Increase Paxil to 10 mg by mouth daily. 2. Continue medication management, individual and group therapy.
[2016-09-25 18:09] VITALS: BP 137/87
[2016-09-25 21:19] VITALS: BP 136/78
[2016-09-26 06:41] VITALS: BP 99/55
[2016-09-26 07:20] LABS: CALCIUM LEVEL 9.4 MG/DL (8.5-10.1); POTASSIUM SERUM 4.1 MEQ/L (3.5-5.1)
[2016-09-26] MEDS: NICOTINE 14 MG/24 HR TRANSDERMAL TD SCH (08:38)
[2016-09-26] MEDS: (RENVELA) SEVELAMER **CARBONate** 800 MG TAB PO SCH ×3 (08:38→17:42)
[2016-09-26] MEDS: amLODIPine 5 MG TAB PO SCH ×2 (08:39→21:46)
[2016-09-26] MEDS ORDERED: PARoxetine 10MG TABLET PO SCH (09:00)
--- NOTE | 2016-09-26 13:13 | IPN ---
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 Stated he was depressed. He felt indirectly responsible for the of his who killed herself "with my gun." He stated that he was having intrusive thoughts, that he deserved to "the same way she did." He also stated that he continued to experience feelings of guilt and depression since that time. He admitted having fleeting thoughts of suicide intermittently. The patient also has been drinking excessively since the of his . MEDICATIONS: - Paxil 10 mg by mouth every morning SUBJECTIVE: "I am feeling better." OBJECTIVE: Patient continues to improve slowly. Patient is no longer angry, he is more insightful and is cooperating with the treatment. Patient denies side effect from medication. His creatinine has decreased from 6 to 2. MENTAL STATUS EXAMINATION: Patient is dressed in [facility]. Patient is clean and well-groomed. Fair eye contact. Speech is soft and monotone, but improving. Mood is depressed and anxious, but also improving. Affect is somewhat labile. No delusions or hallucinations. Memory is fair. Patient is fully oriented. Associations are intact. Thinking is logical. Thought content is appropriate. Patient is able to contract for safety during the interview. Insight and judgment is better. ASSESSMENT: 1. Major depressive disorder. 2. Rule out posttraumatic stress disorder (PTSD). 3. Alcohol abuse. 4. Status post acute renal failure. PLAN: 1. Increase Paxil to 15 mg by mouth daily. 2. Medication management and individual and group therapy.
[2016-09-26 18:00] VITALS: BP 140/90
[2016-09-27 06:15] VITALS: BP 118/75
[2016-09-27] MEDS: NICOTINE 14 MG/24 HR TRANSDERMAL TD SCH (08:47)
[2016-09-27] MEDS: (RENVELA) SEVELAMER **CARBONate** 800 MG TAB PO SCH ×3 (08:47→17:51)
[2016-09-27] MEDS: PARoxetine 10MG TABLET PO SCH (08:47)
[2016-09-27] MEDS: amLODIPine 5 MG TAB PO SCH ×2 (08:50→21:00)
[2016-09-27 18:00] VITALS: BP 146/88
[2016-09-27 21:16] VITALS: BP 147/96
[2016-09-28 06:00] VITALS: BP 135/80
[2016-09-28 07:17] LABS: CREATININE FOR GFR 1.76 MG/DL (0.70-1.30); GLOMERULAR FILTRATION RATE 48.6 (>60); POTASSIUM SERUM 4.1 MEQ/L (3.5-5.1)
[2016-09-28] MEDS: NICOTINE 14 MG/24 HR TRANSDERMAL TD SCH (09:03)
[2016-09-28] MEDS: amLODIPine 5 MG TAB PO SCH ×2 (09:03→21:00)
[2016-09-28] MEDS: PARoxetine 10MG TABLET PO SCH (09:03)
[2016-09-28] MEDS: (RENVELA) SEVELAMER **CARBONate** 800 MG TAB PO SCH ×3 (09:04→17:53)
--- NOTE | 2016-09-28 16:44 | IPN ---
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 He was depressed. He felt indirectly responsible for the of his who killed herself "with my gun." He stated that he was having intrusive thoughts, that he deserved to "the same way she did." He also stated that he continued to experience feelings of guilt and depression since that time. He admitted having fleeting thoughts of suicide intermittently. The patient also has been drinking excessively since the of his . MEDICATIONS: - Paxil 15 mg by mouth every morning SUBJECTIVE: "I am feeling better." OBJECTIVE: Patient continues to improve slowly. Patient can now smile at times intermittently. He is no longer angry. He appears to be more insightful. Patient denies side effect from medication. His creatinine today is 1.76. MENTAL STATUS EXAMINATION: Patient is dressed in [facility]. Clean and well-groomed. Fair eye contact. Speech is normal in rate, volume, and articulation. Mood is depressed and anxious, but improving. Affect is congruent with mood. No delusions or hallucinations. Memory is fair. Patient is fully oriented. Associations are intact. Thinking is logical. Thought content is appropriate. Patient is able to contract for safety during the interview and denies suicidal ideations. Insight and judgment is better. ASSESSMENT: 1. Major depressive disorder. 2. Rule out posttraumatic stress disorder (PTSD). 3. Alcohol abuse. 4. Status-post acute renal failure. PLAN: 1. Continue with Paxil 15 mg by mouth daily. 2. Continue medication management and individual and group therapy.
[2016-09-28 18:00] VITALS: BP 142/89
[2016-09-29 06:25] VITALS: BP 147/88
[2016-09-29] MEDS: (RENVELA) SEVELAMER **CARBONate** 800 MG TAB PO SCH ×3 (08:28→17:45)
[2016-09-29] MEDS: PARoxetine 10MG TABLET PO SCH (08:28)
[2016-09-29] MEDS: NICOTINE 14 MG/24 HR TRANSDERMAL TD SCH (08:28)
[2016-09-29] MEDS: amLODIPine 5 MG TAB PO SCH ×3 (08:28→21:15)
[2016-09-29 18:00] VITALS: BP 139/75
[2016-09-29] MEDS: SODIUM CHLORIDE NASAL 0.65% SPRAY BTL (OCEAN) PRN (21:31)
[2016-09-30 06:27] VITALS: BP 138/83
[2016-09-30 07:15] LABS: CALCIUM LEVEL 9.2 MG/DL (8.5-10.1); CREATININE FOR GFR 1.56 MG/DL (0.70-1.30); GLOMERULAR FILTRATION RATE 55.9 (>60); POTASSIUM SERUM 3.9 MEQ/L (3.5-5.1)
[2016-09-30 08:46] VITALS: BP 132/68
[2016-09-30] MEDS: NICOTINE 14 MG/24 HR TRANSDERMAL TD SCH (08:48)
[2016-09-30] MEDS: amLODIPine 5 MG TAB PO SCH ×2 (08:49→21:06)
[2016-09-30] MEDS: (RENVELA) SEVELAMER **CARBONate** 800 MG TAB PO SCH ×3 (08:49→17:22)
[2016-09-30] MEDS: PARoxetine 10MG TABLET PO SCH (08:49)
[2016-09-30] MEDS: SODIUM CHLORIDE NASAL 0.65% SPRAY BTL (OCEAN) PRN ×3 (08:51→21:05)
--- NOTE | 2016-09-30 13:13 | IPNPDOC ---
Assessment/Plan Date Seen The patient was seen on 09/30/16. Problems Problems: (1) Acute renal failure Status: Acute Response to Treatment: Improving Problem Text: * Related to Naproxen overdose. * Scr continues to trend downward. * 1.56. * Cont with BMP Q48 hrs for now. * Continue to avoid any nephrotoxic agents. * Cont adequate po intake. Plan / VTE VTE Prophylaxis Ordered?: No (ambulatory) Subjective Review of Systems CC/HPI The patient is a 31-year-old male admitted with a reason for visit of Unspecified Depressive Do. Events since last encounter pt feeling well. no complaints or concerns. Gastrointestinal: Denies: Abdominal Pain, Diarrhea, Nausea, Vomiting Genitourinary: Denies: Dysuria, Frequency, Incontinence, Retention Objective Physical Examination General Exam: Positive: Alert Eye Exam: Positive: PERRLA Chest Exam: Positive: Clear to auscultation, Normal air movement Heart Exam: Positive: Normal S1, Normal S2, Rate Normal, Regular Rhythm, Negative: Murmurs, Rubs Abdomen Exam: Positive: Normal bowel sounds, Soft, Negative: Hepatospenomegaly, Tenderness Vital Signs/I&O Vital Signs Date Time Temp Pulse Resp B/P Pulse Ox O2 Delivery O2 Flow Rate FiO2 09/30/16 08:49 73 132/68 09/30/16 06:27 96.4 18 09/27/16 09:42 Room Air Laboratory Data Labs 24H Laboratory Tests 2 09/30/16 06:30: Anion Gap 7L, Blood Urea Nitrogen 19H, Creatinine 1.56H, Sodium Level 141, Potassium Level 3.9, Chloride Level 103, Carbon Dioxide Level 31, Calcium Level 9.2, Glomerular Filtration Rate 55.9L CBC/BMP Laboratory Tests 09/30/16 06:30 Calcium Level 9.2 Sandra Lewis Sep 30, 2016 13:13
--- NOTE | 2016-09-30 13:18 | IPN ---
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 He was depressed. He felt indirectly responsible for the of his who killed herself "with my gun." He stated that he was having intrusive thoughts, that he deserved to "the same way she did." He also stated that he continued to experience feelings of guilt and depression since that time. He admitted having fleeting thoughts of suicide intermittently. The patient also has been drinking excessively since the of his . MEDICATIONS: Paxil 15 mg by mouth every morning. SUBJECTIVE: "I am feeling better." OBJECTIVE: Patient's moods continue to improve. He is agreeable to our treatment plan now that he is more insightful. Energy levels are improving and he has been participating in the therapeutic activities of the unit as well as interacting with other patients. Sleeping better but concerned how he will do once he is discharged to the . No other complaints of medication side effects. No psychomotor retardation noted. MENTAL STATUS EXAMINATION: The patient is dressed in [facility], clean and well-groomed. He maintains eye contact throughout the interview. Attitude is cooperative. He is alert and oriented times three. Speech is at a normal rate, volume, and rhythm. Mood is depressed but improving. Affect is congruent with mood. Thoughts are linear. No delusions or hallucinations. The patient is able to contract for his safety on our unit. Insight and judgment continue to improve. He is able to concentrate on tasks given. Immediate, recent and remote memory intact. He is able to form abstract thoughts. ASSESSMENT: 1. Major depressive disorder. 2. Rule out posttraumatic stress disorder (PTSD). 3. Alcohol abuse. 4. Status post acute renal failure. PLAN: 1. Continue with Paxil 15 mg by mouth daily. 2. Continue medication management and individual and group therapy. My preceptor for this patient encounter was Dr. Merritt Colindres. The preceptor was physically present in the building during the encounter and was fully available as needed. All aspects of the patient interview, examination, medical decision making process, and medical care plan development were reviewed and approved by the preceptor. The preceptor is aware and concurs with the plan as stated in the body of this note and will attest to such by his/her co-signature.
[2016-09-30 18:14] VITALS: BP 138/86
[2016-10-01 06:40] VITALS: BP 124/63
[2016-10-01] MEDS: SODIUM CHLORIDE NASAL 0.65% SPRAY BTL (OCEAN) PRN ×2 (08:39→22:16)
[2016-10-01] MEDS: PARoxetine 10MG TABLET PO SCH (08:40)
[2016-10-01] MEDS: (RENVELA) SEVELAMER **CARBONate** 800 MG TAB PO SCH ×3 (08:40→17:46)
[2016-10-01] MEDS: amLODIPine 5 MG TAB PO SCH ×2 (08:40→22:16)
[2016-10-01] MEDS: NICOTINE 14 MG/24 HR TRANSDERMAL TD SCH (08:41)
[2016-10-01] MEDS ORDERED: AMLO5TAB2 PO (12:31)
[2016-10-01] MEDS ORDERED: NICO14PA TD (12:31)
[2016-10-01] MEDS ORDERED: RENV2TAB PO (12:31)
--- NOTE | 2016-10-01 15:25 | IPNPDOC ---
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 He was depressed. He felt indirectly responsible for the of his who killed herself "with my gun." He stated that he was having intrusive thoughts, that he deserved to "the same way she did." He also stated that he continued to experience feelings of guilt and depression since that time. He admitted having fleeting thoughts of suicide intermittently. The patient also has been drinking excessively since the of his . MEDICATIONS: Paxil 15 mg by mouth every morning. SUBJECTIVE: "Everything is going well, I feel good today." OBJECTIVE: Patient's mood continues to improve. He notes his moods have been consistently more stable with his medication. He slept 8 hours last night with no complaints. He is looking forward to going home and returning to work. He states he has learned how to express how he is feeling to others and not keep it "bottled up" as he previously had. Has been engaging in the therapeutic activities of the unit daily. Appetite remains well. No psychomotor retardation noted. No complaints of medication side effects. Creatinine 1.56 on 09/30, trending downwards. MENTAL STATUS EXAMINATION: The patient is dressed in [facility], clean and well-groomed. He maintains eye contact throughout the interview. Attitude is cooperative. He is alert and oriented times three. Speech is at a normal rate , volume, and rhythm. Mood is depressed but continues to improve. He is excited at the thought of returning home and to work. Affect is congruent with mood. Thoughts are linear. No delusions or hallucinations. The patient is able to contract for his safety on our unit. Insight and judgment improving. He is able to concentrate on tasks given. Immediate, recent and remote memory intact. He is able to form abstract thoughts. ASSESSMENT: 1. Major depressive disorder. 2. Rule out posttraumatic stress disorder (PTSD). 3. Alcohol abuse. 4. Status post acute renal failure. PLAN: 1. Continue with Paxil 15 mg by mouth daily. 2. Continue medication management and individual and group therapy. 3. If the patient continues to improve, will likely be discharged home tomorrow. Vital Signs Vital Signs Date Time Temp Pulse Resp B/P Pulse Ox O2 Delivery O2 Flow Rate FiO2 10/01/16 08:40 67 124/63 10/01/16 06:40 98.1 16 09/27/16 09:42 Room Air Current Medications Current Medications Acetaminophen (Tylenol) 650 mg Q6HP PRN PO HEADACHE or DISCOMFORT Last administered on 09/22/16 21:16; Start 09/22/16 at 20:00; Stop 10/22/16 at 19:59 Amlodipine Besylate (Norvasc) 5 mg BID PO Last administered on 10/01/16 08:40 ; Start 09/22/16 at 21:00; Stop 10/22/16 at 20:59 Nicotine (Nicoderm Cq 14mg) 1 patch DAILY TD Last administered on 10/01/16 08: 41; Start 09/23/16 at 09:00; Stop 10/23/16 at 08:59 Paroxetine HCl (PAXil) 5 mg QAM PO Last administered on 09/25/16 07:55; Start 09/24/16 at 09:00; Stop 09/25/16 at 09:32; Status DC Paroxetine HCl (PAXil) 10 mg QAM PO Last administered on 09/26/16 08:38; Start 09/26/16 at 09:00; Stop 09/26/16 at 11:12; Status DC Paroxetine HCl (PAXil) 15 mg QAM PO Last administered on 10/01/16 08:40; Start 09/27/16 at 09:00; Stop 10/27/16 at 08:59 Sevelamer Carbonate (Renvela) 800 mg WM PO Last administered on 10/01/16 12:34 ; Start 09/23/16 at 08:00; Stop 10/23/16 at 07:59 Sodium Chloride (Axis Nasal [place]) 2 spray Q2HP PRN NA NASAL DRYNESS Last administered on 10/01/16 08:39; Start 09/29/16 at 20:00; Stop 10/29/16 at 19:59 Allergies Coded Allergies: No Known Allergies (Unverified , 09/14/16) GME ATTESTATION GME ATTESTATION My preceptor for this patient encounter was physically present in the building during the encounter and was fully available. As needed, all aspects of the patient interview, examination, medical decision making process, and medical care plan development were reviewed and approved by the preceptor. Preceptor is aware and concurs with the plan as stated in the body of this note and will attest to such by his/her cosignature. SHERLY EARLY Oct 01, 2016 15:25
--- NOTE | 2016-10-01 16:16 | IPN ---
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 He was depressed. He felt indirectly responsible for the of his who killed herself "with my gun." He stated that he was having intrusive thoughts, that he deserved to "the same way she did." He also stated that he continued to experience feelings of guilt and depression since that time. He admitted having thoughts of suicide intermittently. The patient also has been drinking excessively since the of his . MEDICATIONS: - Paxil 15 mg by mouth every morning SUBJECTIVE: "I am feeling better." OBJECTIVE: Patient is improve slowly. Is less depressed. Less psychomotor retardation. Interacting with other patient's and the staff. He is no longer angry and he is more insightful and cooperative. His creatinine is decreasing slowly. MENTAL STATUS EXAMINATION: Patient is dressed in [facility]. Patient is cooperative. Fair eye contact. Speech is normal in rate, volume, and articulation. Mood is depressed and anxious, but improving. Affect is congruent with mood. No delusions or hallucinations. Short and long term care administrator memory are intact. Patient is fully oriented. Associations are intact. Thinking is logical. Thought content is appropriate. Patient is luis a for safety during the interview. Insight and judgment is better. ASSESSMENT: 1. Major depressive disorder. 2. Rule out posttraumatic stress disorder (PTSD). 3. Alcohol abuse. 4. Status-post acute renal failure. PLAN: 1. Continue with Paxil 15 mg by mouth daily. 2. Continue medication management and individual and group therapy.
[2016-10-01 18:00] VITALS: BP 130/72
[2016-10-02 06:49] VITALS: BP 129/64
[2016-10-02 07:24] LABS: ANION GAP 9 MEQ/L (8-16); BLOOD UREA NITROGEN 19 MG/DL (7-18); CALCIUM LEVEL 9.4 MG/DL (8.5-10.1); CARBON DIOXIDE LEVEL 30 MEQ/L (21-32); CHLORIDE LEVEL 102 MEQ/L (98-107); CREATININE FOR GFR 1.39 MG/DL (0.70-1.30); GLOMERULAR FILTRATION RATE > 60.0 (>60); GLUCOSE, FASTING 82 MG/DL (70-105); POTASSIUM SERUM 3.8 MEQ/L (3.5-5.1); SODIUM LEVEL 141 MEQ/L (136-145)
[2016-10-02] MEDS: NICOTINE 14 MG/24 HR TRANSDERMAL TD SCH (08:46)
[2016-10-02] MEDS: PARoxetine 10MG TABLET PO SCH (08:50)
[2016-10-02 08:51] VITALS: BP 152/70
[2016-10-02] MEDS: amLODIPine 5 MG TAB PO SCH (08:51)
[2016-10-02] MEDS: (RENVELA) SEVELAMER **CARBONate** 800 MG TAB PO SCH ×2 (08:51→12:32)
[2016-10-02] MEDS ORDERED: PARO5TAB PO (09:27)
[2016-10-02] MEDS ORDERED: OCEA0.654 (12:31)
--- NOTE | 2016-10-02 22:02 | MHDS ---
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 He states he was depressed. He felt indirectly responsible for the of his who killed herself "with my gun." He stated that he was having intrusive thoughts and that he deserved to the same way she did. He also stated that he continued to experience feelings of guilt and depression since that time. He admitted having fleeting thoughts of suicide intermittently. He denied any psychiatric problems or depression prior to the of his in December 2014. He also stated that since his , he has been drinking heavily, mostly beer and rum. He reported that there was no point in going on with his life. He also reported overwhelming feelings of guilt and emotions, poor sleep, rumination over his 's and decreased energy. After being admitted to psychiatry, he complained of abdominal pain. He was evaluated by the medical team and was found to have acute renal failure. He was transferred to the medical floor for stabilization. He did not tell anybody that he overdosed on naproxen. He was medically cleared and transferred back to our unit. At the moment of the evaluation on the medical floor, the patient was minimizing the events that led to his admission. He was focused on discharge. He was angry and frustrated because he was transferred back to the mental health unit. He was denying any symptoms. He showed very little insight. He was making statements that he was ready to go and to continue his treatment as an outpatient, but he has not been able to take his medication for depression due to his acute renal failure. His creatinine was 6. During the interview, there is no evidence of psychotic symptoms. No auditory or visual hallucinations or delusions. LABORATORY ON ADMISSION: His BMP showed a BUN of 35, creatinine of 3, glomerular filtration rate of 26. On 10/02/2016, before discharge, his BUN is 19 and his creatinine is 1.39, the rest within normal limits. No other labs were drawn during this admission since he was extensively worked up on the medical floor. HOSPITAL COURSE: The patient was readmitted to psychiatry after his creatinine decreased and with consultation with his civil engineering project designer, he was started on Paxil 5 mg by mouth every morning and was increased by 5 mg in the next few days. The dose of Paxil was kept at 15 mg by mouth every morning until the day of discharge since his creatinine did not return to baseline yet. However, he is asymptomatic. His mood improved slowly but steadily. The first few days he was frustrated and uncooperative, but after the treatment started, he became more insightful, cooperative and started going to all psychotherapeutic activities of the unit. By the end of the hospitalization, he had found out that the therapeutic activities were quite helpful and has been able to see how he was closed to himself and unable to talk to anybody about his problems. He is significantly less depressed. He is interacting well with peers and staff. He is able to smile. He has no longer psychomotor retardation. There is no evidence of auditory or visual hallucinations or delusions. The patient denies suicidal or homicidal ideation at discharge and he is motivated for treatment on an outpatient basis. MEDICATIONS AT DISCHARGE: - Paxil 15 mg by mouth every morning MENTAL STATUS EXAMINATION AT DISCHARGE: The patient is dressed in [facility]. The patient is cooperative. His speech is clear, coherent with normal rate and is spontaneous. The patient has good eye contact. Mood is slightly anxious and depressed but significantly improved from admission. Affect is appropriate and congruent with mood. The patient is oriented to time, place, person and situation, maintains attention and concentration correctly. Instant recall, recent and remote memory are intact. Thought processes are coherent, logical and goal directed. The patient does not have auditory or visual hallucinations. The patient does not have paranoid, persecutory, somatic-induced or latter-day delusions. The patient is denying suicidal or homicidal ideation. Judgment and insight are fair. DISCHARGE DIAGNOSES: [place] I: Major depressive disorder, post-traumatic stress disorder (PTSD), alcohol abuse. [place] II: Deferred. [place] III: Status post acute renal failure. INSTRUCTIONS TO THE PATIENT: The patient is to continue taking his medication as prescribed and followup appointments. He was advised to maintain absolute sobriety of drugs and alcohol. The patient has a scheduled appointment for psychotropic medication management, individual psychotherapy and primary care physician and also an appointment for nephrology. Edited 10/02/2016 dia
== END 2016-10-02 12:45 | disposition home or self-care (01) | DRG 881 ==
LOC: M PSY 18:17
PROVIDERS: ADMIT Psychiatry & Neurology Psychiatry; ATTEND Psychiatry & Neurology Psychiatry
DX: F32.9 Major depressive disorder, single episode, unspecified (principal); N17.9 Acute kidney failure, unspecified; Z91.5 Personal history of self-harm; Z63.4 Disappearance and death of family member; F10.10 Alcohol abuse, uncomplicated; F43.10 Post-traumatic stress disorder, unspecified

== ENCOUNTER 2016-10-15 06:46 | Emergency (ER) | payer OTHER ==
[~2016-10-15 06:46] MED LIST changes: +OCEA0.654; +PARO5TAB PO
[2016-10-15 07:48] LABS: MEAN CORPUSCULAR HEMOGLOBIN 28.5 pg (27.0-33.0); MEAN CORPUSCULAR HGB CONC 33.6 g/dl (32.0-36.5); MEAN CORPUSCULAR VOLUME 84.6 fl (80.0-96.0); RED CELL DISTRIBUTION WIDTH 12.7 % (11.5-14.5); WHITE BLOOD COUNT 7.5 K/mm3 (4.0-10.0)
[2016-10-15 08:11] LABS: ALBUMIN 4.1 GM/DL (3.2-5.2); ALBUMIN/GLOBULIN RATIO 1.03 (1.00-1.93); ALKALINE PHOSPHATASE 85 U/L (45-117); ALT/SGPT 22 U/L (12-78); ANION GAP 11 MEQ/L (8-16); AST/SGOT 22 U/L (15-37); BILIRUBIN,DIRECT 0.1 MG/DL (0.0-0.2); BILIRUBIN,TOTAL 0.6 MG/DL (0.2-1.0); BLOOD UREA NITROGEN 14 MG/DL (7-18); CALCIUM LEVEL 8.6 MG/DL (8.5-10.1); CARBON DIOXIDE LEVEL 23 MEQ/L (21-32); CHLORIDE LEVEL 107 MEQ/L (98-107); GLOMERULAR FILTRATION RATE > 60.0 (>60); GLUCOSE, FASTING 92 MG/DL (70-105); SODIUM LEVEL 141 MEQ/L (136-145); TOTAL PROTEIN 8.1 GM/DL (6.4-8.2)
[2016-10-15 08:14] LABS: AMPHETAMINES LEVEL URINE NEGATIVE (NEGATIVE); BENZODIAZEPINES URINE NEGATIVE (NEGATIVE); COCAINE METABOLITE URINE NEGATIVE (NEGATIVE); CONTROL LINE INT CTR LINE PRESENT; METHADONE URINE NEGATIVE (NEGATIVE); OPIATES URINE NEGATIVE (NEGATIVE); TRICYCLIC ANTIDEPRESS URINE NEGATIVE (NEGATIVE)
[2016-10-15] MEDS ORDERED: LORazepam 2 MG/ML VIAL (J2060) As Ordered ONE (08:31)
[2016-10-15] MEDS ORDERED: MULTIVITAMINS/MINERALS THERAP 1 TAB As Ordered ONE (08:46)
[2016-10-15] MEDS ORDERED: ONDANSETRON 4MG/2ML VIAL (J2405) As Ordered ONE (08:46)
[2016-10-15] MEDS ORDERED: THIAMINE HCL 200 MG/2 ML VIAL (J3411) As Ordered ONE (08:47)
--- NOTE | 2016-10-15 11:18 | EDDOCDS ---
Nurse's Notes [facility] Name: Jamil Elizalde Age: 31 yrs Sex: Male : 1985 Arrival Date: 10/15/2016 Time: 06:46 Bed 6 Private MD: Diagnosis: Alcohol abuse Presentation: 10/15 06:49 Presenting complaint: Patient states: he has not drank for 2 days, last night and now nn1 was having SOB, palpitations. Patient reports anxiety and feeling jittery, shaky. Patient reports nightmares last night. Presenting complaint: Patient states: he normally drank 5 beers/day. Adult Sepsis Screening: The patient does not have new or worsening altered mentation. Patient's respiratory rate is less than 22. Systolic blood pressure is greater than 100. Patient has a qSOFA score of 0- Negative Sepsis Screen. Suicide/Homicide risk assessment- the patient denies having any suicidal and/or homicidal ideations and does not present with any other emotional, behavioral or mental health complaints. 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 Transition of care: patient was not received from another setting of care. 06:49 Acuity: SHAKIRA Level 3 nn1 06:49 Method Of Arrival: Walkin/Carried/Asstd nn1 Triage Assessment: 06:54 General: Appears in no apparent distress, comfortable, Behavior is anxious, appropriate nn1 for age, cooperative. Pain: Denies pain. HIV screening NA for this visit Offered previously. Neurological: Level of Consciousness is awake, alert, obeys commands, Oriented to person, place, time. Cardiovascular:. Respiratory: Airway is patent Respiratory effort is even, Respiratory pattern is regular, symmetrical. Derm: Skin is pink, warm & dry. Historical: - Allergies: No known drug Allergies; - Home Meds: 1. Paxil 10 mg Oral tab 1.5 tabs once daily 2. amlodipine 5 mg Oral tab 1 tab twice a day 3. sevelamer carbonate 800 mg oral tab 1 tab 3 times per day - PMHx: Anxiety; kidney failure; Hypertension; Depression; PTSD; - PSHx: Cystectomy; wisdom teeth extraction; - Social history: Smoking status: Patient uses tobacco products, heavy tobacco smoker. No barriers to communication noted, The patient speaks fluent [place], Speaks appropriately for age, Smoking status: Chewing Tobacco. - Family history: Not pertinent. - : The pt / caregiver states he / she is not on anticoagulants. Home medication list is obtained from the patient. - Exposure Risk Screening:: None identified. Screenin:24 Screening information is obtained from the patient. Fall risk: No risks identified. kcs Assistance ADL's: requires no assistance with activities of daily living. Abuse/DV Screen: The patient / caregiver reports he/she is: not in a situation that causes fear, pain or injury. Nutritional screening: No deficits noted. Advance Directives: Currently, there is no health care proxy. There is no living will. home support is adequate. Assessment: 07:30 General: Appears comfortable, well developed, well nourished, well groomed, Behavior is kcs cooperative, flat, pleasant. Pain: Denies pain. Neurological: Level of Consciousness is awake, alert. Respiratory: Airway is patent Respiratory effort is even, unlabored, Respiratory pattern is regular, symmetrical. GI: Abdomen is flat, Bowel sounds present X 4 quads. Abd is soft and non tender X 4 quads. Derm: Skin is intact, is healthy with good turgor, Skin is dry, Skin is normal. 08:40 Reassessment: Patient relaxed - texting on phone - escort at bedside.. kcs General: Appears comfortable, well developed, well nourished, well groomed. Pain: Denies pain. Derm: Skin is intact, is healthy with good turgor, Skin is dry, Skin is normal. 09:15 Reassessment: Patient remains alert, cooperative and pleasant. Requesting breakfast - kcs provider informed. Drinking po fluids and retaining. IV infusing. Respirations easy. Color = pink. escort remains at bedside.. 09:32 General: Appears in no apparent distress, comfortable, well developed, well nourished, jo3 well groomed, Behavior is appropriate for age, cooperative, pleasant. General: Pt states that he feels improved since arrival. Awaiting results with escort at bedside. Aware of plan of care . Neurological: Level of Consciousness is awake, alert, Oriented to person, place, time. Respiratory: Airway is patent Respiratory effort is even, unlabored. Derm: Skin is pink, warm & dry. 10:32 Reassessment: Patient appears in no apparent distress at this time. Patient denies pain jo3 at this time. Continues to rest on stretcher following breakfast meal. Escort at bedside. Awaiting results for disposition. Aware of plan of care . 11:12 General: Appears in no apparent distress, comfortable, Behavior is appropriate for age, jo3 cooperative, Smells of. Neurological: No deficits noted. Level of Consciousness is awake, alert, Oriented to person, place, time, Respiratory: Airway is patent Respiratory effort is even, unlabored. Derm: Skin is pink, warm & dry. Vital Signs: 06:55 BP 154 / 99; Pulse 79; Resp 18; Temp 99.3(TE); Pulse Ox 99% on R/A; Weight 97.52 kg; nn1 Height 72 in. (182.88 cm); Pain 0/10; 08:40 BP 116 / 64; Pulse 71; Resp 18; Pulse Ox 96% on R/A; Pain 0/10; kcs 09:28 BP 120 / 75 (auto/); Pulse 60; Resp 16; Pulse Ox 97% on R/A; jo3 11:12 BP 116 / 66; Pulse 59; Resp 14; Temp 98.9; Pulse Ox 98% on R/A; jo3 06:55 Body Mass Index 29.16 (97.52 kg, 182.88 cm) nn1 Vitals: 06:55 Log In Time: October 15, 2016 at 06:49. nn1 ED Course: 06:49 Patient visited by Divine Pereira Reg. hs2 06:49 Patient moved to Waiting hs2 06:51 Triage Initiated nn1 06:57 Patient moved to 6 nn1 07:25 Inserted saline lock: 20 gauge in left antecubital area The patient tolerated the kcs procedure well. 07:28 Acetaminophen Level Sent. kcs 07:29 Basic Metabolic Profile Sent. kcs 07:29 Complete Blood Count Sent. kcs 07:29 Ethyl Alcohol (ethanol) Sent. kcs 07:29 Liver Profile Sent. kcs 07:29 Salicylate Level Sent. kcs 07:29 Thyroid Stimulating Hormone Sent. kcs 07:30 The patient / caregiver is instructed regarding the plan of care and ED course. kcs 07:37 Drug Eval Toxicology ED Only Sent. kcs 08:00 Patient visited by Marga Leonard PCA. ct3 08:11 Cecile Romero MD is Attending Physician. fg 08:11 Patient visited by Cecile Romero MD. fg 08:17 [facility] Payment Agreement was scanned into [employer] and attached to record. lg 08:50 [facility] Payment Agreement was scanned into [employer] and attached to record. lg 09:13 Patient visited by Marga Leonard PCA. ct3 09:25 Report given to Lupis Connor RN. kcs 09:34 Patient visited by Maria L Connor,JACQUELIN. jo3 10:33 Patient visited by Maria L Connor,JACQUELIN. jo3 11:00 [facility]. fg 11:12 Discontinued IV lock intact, bleeding controlled, pressure dressing applied, No jo3 redness/swelling at site. Labs drawn. (by ED staff). Sent per order to lab. 11:17 No procedures done that require assistance. jo3 Administered Medications: 08:38 Drug: LORazepam 0.5 mg [lorazepam 2 mg/mL injection solution (0.25 mL)] Route: IVP; [facility] Site: left antecubital; 08:58 Drug: Multivitamins W-Minerals 1 tabs Route: PO; kcs 08:58 Drug: Ondansetron 4 mg [ondansetron HCl 2 mg/mL intravenous solution (2 mL)] Route: kcs IVP; Site: left antecubital; 09:05 Drug: Thiamine 100 mg [thiamine HCl (vitamin B1) 100 mg/mL injection solution (1 mL)] [facility] {Note: slowly over 5 minutes.} Route: IVP; Site: left antecubital; 09:06 Drug: NS 0.9% 1000 ml [sodium chloride 0.9 % intravenous solution] Route: IV; Rate: kcs bolus; Site: left antecubital; Order Results: Lab Order: Acetaminophen Level; SPEC'M 10/15/16 07:24 Test: ACETAMINOPHEN LEVEL; Value: < 2.0; Range: 10.0-30.0; Abnormal: Below low normal; Units: UG/ML; Status: F Lab Order: Basic Metabolic Profile; SPEC'M 10/15/16 07:24 Test: GLUCOSE, FASTING; Value: 92; Range: 70-105; Units: MG/DL; Status: F Test: BLOOD UREA NITROGEN; Value: 14; Range: 7-18; Units: MG/DL; Status: F Test: CREATININE FOR GFR; Value: 1.20; Range: 0.70-1.30; Units: MG/DL; Status: F Test: GLOMERULAR FILTRATION RATE; Value: > 60.0; Range: >60; Status: F Test: SODIUM LEVEL; Value: 141; Range: 136-145; Units: MEQ/L; Status: F Test: POTASSIUM SERUM; Value: 4.0; Range: 3.5-5.1; Units: MEQ/L; Status: F Test: CHLORIDE LEVEL; Value: 107; Range: 98-107; Units: MEQ/L; Status: F Test: CARBON DIOXIDE LEVEL; Value: 23; Range: 21-32; Units: MEQ/L; Status: F Test: ANION GAP; Value: 11; Range: 8-16; Units: MEQ/L; Status: F Test: CALCIUM LEVEL; Value: 8.6; Range: 8.5-10.1; Units: MG/DL; Status: F Test Note: ; Units are mL/min/1.73 m2 Chronic Kidney Disease Staging per NKF: Stage I & II GFR >=60 Normal to Mildly Decreased Stage III GFR 30-59 Moderately Decreased Stage IV GFR 15-29 Severely Decreased Stage V GFR <15 Very Little GFR Left ESRD GFR <15 on NURSING STAFFING COORDINATOR Lab Order: Complete Blood Count; [facility]' 10/15/16 07:24 Test: WHITE BLOOD COUNT; Value: 7.5; Range: 4.0-10.0; Units: K/mm3; Status: F Test: RED BLOOD COUNT; Value: 5.29; Range: 4.30-6.10; Units: M/mm3; Status: F Test: HEMOGLOBIN; Value: 15.1; Range: 14.0-18.0; Units: g/dl; Status: F Test: HEMATOCRIT; Value: 44.8; Range: 42.0-52.0; Units: %; Status: F Test: MEAN CORPUSCULAR VOLUME; Value: 84.6; Range: 80.0-96.0; Units: fl; Status: F Test: MEAN CORPUSCULAR HEMOGLOBIN; Value: 28.5; Range: 27.0-33.0; Units: pg; Status: F Test: MEAN CORPUSCULAR HGB CONC; Value: 33.6; Range: 32.0-36.5; Units: g/dl; Status: F Test: RED CELL DISTRIBUTION WIDTH; Value: 12.7; Range: 11.5-14.5; Units: %; Status: F Test: PLATELET COUNT, AUTOMATED; Value: 209; Range: 150-450; Units: k/mm3; Status: F Lab Order: Drug Eval Toxicology ED Only; SPEC'M 10/15/16 07:35 Test: AMPHETAMINES LEVEL URINE; Value: NEGATIVE; Range: NEGATIVE; Status: F Test: BARBITURATES URINE; Value: NEGATIVE; Range: NEGATIVE; Status: F Test: BENZODIAZEPINES URINE; Value: NEGATIVE; Range: NEGATIVE; Status: F Test: CANNABINOIDS URINE; Value: NEGATIVE; Range: NEGATIVE; Status: F Test: COCAINE METABOLITE URINE; Value: NEGATIVE; Range: NEGATIVE; Status: F Test: METHADONE URINE; Value: NEGATIVE; Range: NEGATIVE; Status: F Test: OPIATES URINE; Value: NEGATIVE; Range: NEGATIVE; Status: F Test: TRICYCLIC ANTIDEPRESS URINE; Value: NEGATIVE; Range: NEGATIVE; Status: F Test Note: ; ALL PRESUMPTIVE POSITIVE FINDINGS ARE UNCONFIRMED NORMAL VALUES THRESHOLD IN NG/ML AMPHETAMINES 1000 METHAMPHETAMINES 1000 BARBITURATES 300 BENZODIAZEPINES 300 CANNABINOIDS (THC) 50 COCAINE METABOLITE 300 METHADONE 300 OPIATES 300 PHENCYCLIDINE 25 TRICYCLIC ANTIDEPRESSANTS 1000 RESULTS ARE FOR MEDICAL PURPOSES ONLY. ALL URINE SPECIMENS WILL BE SAVED FOR 3 DAYS. IF CONFIRMATION OF A PRESUMPTIVE POSTIVE SCREEN RESULT IS DESIRED, CALL CHEMISTRY ([phone]) AND REQUEST URINE TO BE SENT TO REFERENCE LAB. FOR A LIST OF CLOSELY RELATED COMPOUNDS PLEASE CALL THE LAB. Lab Order: Ethyl Alcohol (ethanol); SPEC'M 10/15/16 07:24 Test: ETHYL ALCOHOL (ETHANOL); Value: < 0.003; Range: 0.000-0.010; Units: %; Status: F Lab Order: Liver Profile; SPEC'M 10/15/16 07:24 Test: AST/SGOT; Value: 22; Range: 15-37; Units: U/L; Status: F Test: ALT/SGPT; Value: 22; Range: 12-78; Units: U/L; Status: F Test: ALKALINE PHOSPHATASE; Value: 85; Range: 45-117; Units: U/L; Status: F Test: BILIRUBIN,TOTAL; Value: 0.6; Range: 0.2-1.0; Units: MG/DL; Status: F Test: BILIRUBIN,DIRECT; Value: 0.1; Range: 0.0-0.2; Units: MG/DL; Status: F Test: TOTAL PROTEIN; Value: 8.1; Range: 6.4-8.2; Units: GM/DL; Status: F Test: ALBUMIN; Value: 4.1; Range: 3.2-5.2; Units: GM/DL; Status: F Test: ALBUMIN/GLOBULIN RATIO; Value: 1.03; Range: 1.00-1.93; Status: F Lab Order: Salicylate Level; SPEC'M 10/15/16 07:24 Test: SALICYLATE LEVEL; Value: < 1.7; Range: 5.0-30.0; Abnormal: Below low normal; Units: MG/DL; Status: F Lab Order: Thyroid Stimulating Hormone; SPEC'M 10/15/16 07:24 Test: THYROID STIMULATING HORMONE; Value: 1.620; Range: 0.358-3.740; Units: uIU/ML; Status: F Outcome: 11:01 Discharge ordered by Provider. fg 11:12 Discharge Assessment: Patient awake, alert and oriented x 3. No cognitive and/or jo3 functional deficits noted. Patient verbalized understanding of disposition instructions. patient administered narcotics - no. The following High Risk Discharge criteria are identified: None. Discharged to home ambulatory, with friend. Condition: stable Condition: improved. Discharge instructions given to patient, Instructed on discharge instructions, follow up and referral plans. medication usage, Demonstrated understanding of instructions, medications, Pt was receptive of discharge instructions/ teaching. No special radiology studies were completed. Property sent home with patient. 11:17 Patient left the ED. jo3 Signatures: Barbara Gutiérrez, RN RN Shruthi De Paz, Reg Reg lg Maria L Connor RN RN jo3 Marga Leonard, STEWARD/STEWARDESS WINE STEWARD/STEWARDESS WINE ct3 Delfina Gomes RN RN nn1 Cecile Romero MD MD Divine Pereira, Reg Reg hs2 MTDD
--- NOTE | 2016-10-15 11:18 | EDDOCDS ---
Physician Documentation [facility], [place] Name: Jamil Elizalde Age: 31 yrs Sex: Male : 1985 Arrival Date: 10/15/2016 Time: 06:46 Bed 6 Private MD: Disposition: 10/15/16 11:01 Discharged to Home/Self Care. Impression: Alcohol abuse. - Condition is Stable. - Discharge Instructions: Alcohol Abuse and Nutrition, Alcohol Withdrawal, [id number]. - Prescriptions for Ativan 0.5 mg Oral Tablet - take 1 tablet by ORAL route every 8 hours As needed; 10 tablet. - Medication Reconciliation, Local Pharmacy Hours form. - Follow up: [facility] [place]; When: Call to arrange an appointment; Reason: Continuance of care. - Problem is new. - Symptoms have improved. Historical: - Allergies: No known drug Allergies; - Home Meds: 1. Paxil 10 mg Oral tab 1.5 tabs once daily 2. amlodipine 5 mg Oral tab 1 tab twice a day 3. sevelamer carbonate 800 mg oral tab 1 tab 3 times per day - PMHx: Anxiety; kidney failure; Hypertension; Depression; PTSD; - PSHx: Cystectomy; wisdom teeth extraction; - Social history: Smoking status: Patient uses tobacco products, heavy tobacco smoker. No barriers to communication noted, The patient speaks fluent Bulgarian, Speaks appropriately for age, Smoking status: Chewing Tobacco. - Family history: Not pertinent. - : The pt / caregiver states he / she is not on anticoagulants. Home medication list is obtained from the patient. - Exposure Risk Screening:: None identified. Vital Signs: 10/15 06:55 BP 154 / 99; Pulse 79; Resp 18; Temp 99.3(TE); Pulse Ox 99% on R/A; Weight 97.52 kg / nn1 214.99 lbs; Height 72 in. (182.88 cm); Pain 0/10; 08:40 BP 116 / 64; Pulse 71; Resp 18; Pulse Ox 96% on R/A; Pain 0/10; kcs 09:28 BP 120 / 75 (auto/); Pulse 60; Resp 16; Pulse Ox 97% on R/A; jo3 11:12 BP 116 / 66; Pulse 59; Resp 14; Temp 98.9; Pulse Ox 98% on R/A; jo3 06:55 Body Mass Index 29.16 (97.52 kg, 182.88 cm) nn1 MDM: 07:27 Consult PFS/PSA/Pug Mill Operator ordered. kcs 07:27 Consult PFS/PSA/Pug Mill Operator: Patient's case requires discussion with on-call kcs Psychiatrist ordered. 07:27 PSA/PFS to call Nursing Informatics Consultant, to enter patient data on [place] if patient kcs involuntarily admitted or transferred for SI or HI ordered. 07:27 Confirm accurate psychiatric medication list and times of last dosage ordered. kcs 07:27 Detain Pt Until Medically/PFS Cleared ordered. kcs 07:28 Acetaminophen Level Ordered. EDMS 07:28 Basic Metabolic Profile Ordered. EDMS 07:28 Complete Blood Count Ordered. EDMS 07:28 Drug Eval Toxicology ED Only Ordered. EDMS 07:28 Ethyl Alcohol (ethanol) Ordered. EDMS 07:28 Liver Profile Ordered. EDMS 07:28 Salicylate Level Ordered. EDMS 07:28 Thyroid Stimulating Hormone Ordered. EDMS 08:12 LORazepam 0.5 mg IVP once ordered. fg 08:17 Financial registration complete. lg 08:17 [facility] Payment Agreement was scanned into [employer] and attached to record. lg 08:32 NS 0.9% 1000 ml IV at bolus once ordered. fg 08:32 Multivitamins W-Minerals 1 tabs PO once ordered. fg 08:32 Ondansetron 4 mg IVP once ordered. fg 08:32 Thiamine 100 mg IVP once ordered. fg 08:50 [facility] Payment Agreement was scanned into [employer] and attached to record. lg 09:25 REGULAR+DIET ordered. EDMS 09:25 REGULAR+DIET ordered. EDMS Administered Medications: 08:38 Drug: LORazepam 0.5 mg [lorazepam 2 mg/mL injection solution (0.25 mL)] Route: IVP; kcs Site: left antecubital; 08:58 Drug: Multivitamins W-Minerals 1 tabs Route: PO; kcs 08:58 Drug: Ondansetron 4 mg [ondansetron HCl 2 mg/mL intravenous solution (2 mL)] Route: kcs IVP; Site: left antecubital; 09:05 Drug: Thiamine 100 mg [thiamine HCl (vitamin B1) 100 mg/mL injection solution (1 mL)] kcs {Note: slowly over 5 minutes.} Route: IVP; Site: left antecubital; 09:06 Drug: NS 0.9% 1000 ml [sodium chloride 0.9 % intravenous solution] Route: IV; Rate: kcs bolus; Site: left antecubital; Signatures: Dispatcher [employer] Barbara Matthews RN RN Shruthi De Paz, Reg Reg Maria L Connor RN RN jo3 Delfina Gomes RN RN nn1 Cecile Romero MD MD fg The chart was reviewed and I authenticate all verbal orders and agree with the evaluation and treatment provided.Attachments: 08:50 [facility] Payment Agreement lg MTDD
--- NOTE | 2016-10-17 12:17 | EDDOCDS ---
Physician Documentation [facility] Name: Jamil Elizalde Age: 31 yrs Sex: Male : 1985 Arrival Date: 10/15/2016 Time: 06:46 Bed 6 Private MD: Disposition: 10/15/16 11:01 Discharged to Home/Self Care. Impression: Alcohol abuse. - Condition is Stable. - Discharge Instructions: Alcohol Abuse and Nutrition, Alcohol Withdrawal, [id number]. - Prescriptions for Ativan 0.5 mg Oral Tablet - take 1 tablet by ORAL route every 8 hours As needed; 10 tablet. - Medication Reconciliation, Local Pharmacy Hours form. - Follow up: [facility] [place]; When: Call to arrange an appointment; Reason: Continuance of care. - Problem is new. - Symptoms have improved. Historical: - Allergies: No known drug Allergies; - Home Meds: 1. Paxil 10 mg Oral tab 1.5 tabs once daily 2. amlodipine 5 mg Oral tab 1 tab twice a day 3. sevelamer carbonate 800 mg oral tab 1 tab 3 times per day - PMHx: Anxiety; kidney failure; Hypertension; Depression; PTSD; - PSHx: Cystectomy; wisdom teeth extraction; - Social history: Smoking status: Patient uses tobacco products, heavy tobacco smoker. No barriers to communication noted, The patient speaks fluent Sudanese, Speaks appropriately for age, Smoking status: Chewing Tobacco. - Family history: Not pertinent. - : The pt / caregiver states he / she is not on anticoagulants. Home medication list is obtained from the patient. - Exposure Risk Screening:: None identified. Vital Signs: 10/15 06:55 BP 154 / 99; Pulse 79; Resp 18; Temp 99.3(TE); Pulse Ox 99% on R/A; Weight 97.52 kg / nn1 214.99 lbs; Height 72 in. (182.88 cm); Pain 0/10; 08:40 BP 116 / 64; Pulse 71; Resp 18; Pulse Ox 96% on R/A; Pain 0/10; kcs 09:28 BP 120 / 75 (auto/); Pulse 60; Resp 16; Pulse Ox 97% on R/A; jo3 11:12 BP 116 / 66; Pulse 59; Resp 14; Temp 98.9; Pulse Ox 98% on R/A; jo3 06:55 Body Mass Index 29.16 (97.52 kg, 182.88 cm) nn1 MDM: 07:27 Consult PFS/PSA/It Network Administrator ordered. kcs 07:27 Consult PFS/PSA/It Network Administrator: Patient's case requires discussion with on-call kcs Psychiatrist ordered. 07:27 PSA/PFS to call Nursing Cash Applications Specialist, to enter patient data on [place] Safe Act if patient kcs involuntarily admitted or transferred for SI or HI ordered. 07:27 Confirm accurate psychiatric medication list and times of last dosage ordered. kcs 07:27 Detain Pt Until Medically/PFS Cleared ordered. kcs 07:28 Acetaminophen Level Ordered. EDMS 07:28 Basic Metabolic Profile Ordered. EDMS 07:28 Complete Blood Count Ordered. EDMS 07:28 Drug Eval Toxicology ED Only Ordered. EDMS 07:28 Ethyl Alcohol (ethanol) Ordered. EDMS 07:28 Liver Profile Ordered. EDMS 07:28 Salicylate Level Ordered. EDMS 07:28 Thyroid Stimulating Hormone Ordered. EDMS 08:12 LORazepam 0.5 mg IVP once ordered. fg 08:17 Financial registration complete. lg 08:17 [facility] Payment Agreement was scanned into [employer] and attached to record. lg 08:32 NS 0.9% 1000 ml IV at bolus once ordered. fg 08:32 Multivitamins W-Minerals 1 tabs PO once ordered. fg 08:32 Ondansetron 4 mg IVP once ordered. fg 08:32 Thiamine 100 mg IVP once ordered. fg 08:50 [facility] Payment Agreement was scanned into [employer] and attached to record. lg 09:25 REGULAR+DIET ordered. EDMS 09:25 REGULAR+DIET ordered. EDMS 14:59 T-Sheet-- Draft Copy was scanned into [employer] and attached to record. gb Administered Medications: 08:38 Drug: LORazepam 0.5 mg [lorazepam 2 mg/mL injection solution (0.25 mL)] Route: IVP; kcs Site: left antecubital; 08:58 Drug: Multivitamins W-Minerals 1 tabs Route: PO; kcs 08:58 Drug: Ondansetron 4 mg [ondansetron HCl 2 mg/mL intravenous solution (2 mL)] Route: kcs IVP; Site: left antecubital; 09:05 Drug: Thiamine 100 mg [thiamine HCl (vitamin B1) 100 mg/mL injection solution (1 mL)] kcs {Note: slowly over 5 minutes.} Route: IVP; Site: left antecubital; 09:06 Drug: NS 0.9% 1000 ml [sodium chloride 0.9 % intravenous solution] Route: IV; Rate: kcs bolus; Site: left antecubital; Signatures: Dispatcher [employer] Barbara Matthews RN RN Stephanie Mccall, Reg Reg gb Shruthi Burnham, Reg Reg lg Maria L ConnorRN RN jo3 Delfina GomesRN RN nn1 Cecile Romero MD MD fg The chart was reviewed and I authenticate all verbal orders and agree with the evaluation and treatment provided.Attachments: 08:50 [facility] Payment Agreement lg 14:59 T-Sheet-- Draft Copy gb Chart Complete MTDD
--- NOTE | 2016-10-17 12:17 | EDDOCDS ---
Physician Documentation [facility] Name: Jamil Elizalde Age: 31 yrs Sex: Male : 1985 Arrival Date: 10/15/2016 Time: 06:46 Bed 6 Private MD: Disposition: 10/15/16 11:01 Discharged to Home/Self Care. Impression: Alcohol abuse. - Condition is Stable. - Discharge Instructions: Alcohol Abuse and Nutrition, Alcohol Withdrawal, [id number]. - Prescriptions for Ativan 0.5 mg Oral Tablet - take 1 tablet by ORAL route every 8 hours As needed; 10 tablet. - Medication Reconciliation, Local Pharmacy Hours form. - Follow up: [facility] [place]; When: Call to arrange an appointment; Reason: Continuance of care. - Problem is new. - Symptoms have improved. Historical: - Allergies: No known drug Allergies; - Home Meds: 1. Paxil 10 mg Oral tab 1.5 tabs once daily 2. amlodipine 5 mg Oral tab 1 tab twice a day 3. sevelamer carbonate 800 mg oral tab 1 tab 3 times per day - PMHx: Anxiety; kidney failure; Hypertension; Depression; PTSD; - PSHx: Cystectomy; wisdom teeth extraction; - Social history: Smoking status: Patient uses tobacco products, heavy tobacco smoker. No barriers to communication noted, The patient speaks fluent [place], Speaks appropriately for age, Smoking status: Chewing Tobacco. - Family history: Not pertinent. - : The pt / caregiver states he / she is not on anticoagulants. Home medication list is obtained from the patient. - Exposure Risk Screening:: None identified. Vital Signs: 10/15 06:55 BP 154 / 99; Pulse 79; Resp 18; Temp 99.3(TE); Pulse Ox 99% on R/A; Weight 97.52 kg / nn1 214.99 lbs; Height 72 in. (182.88 cm); Pain 0/10; 08:40 BP 116 / 64; Pulse 71; Resp 18; Pulse Ox 96% on R/A; Pain 0/10; kcs 09:28 BP 120 / 75 (auto/); Pulse 60; Resp 16; Pulse Ox 97% on R/A; jo3 11:12 BP 116 / 66; Pulse 59; Resp 14; Temp 98.9; Pulse Ox 98% on R/A; jo3 06:55 Body Mass Index 29.16 (97.52 kg, 182.88 cm) nn1 MDM: 07:27 Consult PFS/PSA/Wastewater Treatment Plant Instructor ordered. kcs 07:27 Consult PFS/PSA/Wastewater Treatment Plant Instructor: Patient's case requires discussion with on-call kcs Psychiatrist ordered. 07:27 PSA/PFS to call Nursing Car Wash Attendant Automatic, to enter patient data [place] if patient kcs involuntarily admitted or transferred for SI or HI ordered. 07:27 Confirm accurate psychiatric medication list and times of last dosage ordered. kcs 07:27 Detain Pt Until Medically/PFS Cleared ordered. kcs 07:28 Acetaminophen Level Ordered. EDMS 07:28 Basic Metabolic Profile Ordered. EDMS 07:28 Complete Blood Count Ordered. EDMS 07:28 Drug Eval Toxicology ED Only Ordered. EDMS 07:28 Ethyl Alcohol (ethanol) Ordered. EDMS 07:28 Liver Profile Ordered. EDMS 07:28 Salicylate Level Ordered. EDMS 07:28 Thyroid Stimulating Hormone Ordered. EDMS 08:12 LORazepam 0.5 mg IVP once ordered. fg 08:17 Financial registration complete. lg 08:17 [facility] [place] Agreement was scanned into [employer] and attached to record. lg 08:32 NS 0.9% 1000 ml IV at bolus once ordered. fg 08:32 Multivitamins W-Minerals 1 tabs PO once ordered. fg 08:32 Ondansetron 4 mg IVP once ordered. fg 08:32 Thiamine 100 mg IVP once ordered. fg 08:50 [facility] [place] Agreement was scanned into [employer] and attached to record. lg 09:25 REGULAR+DIET ordered. EDMS 09:25 REGULAR+DIET ordered. EDMS 14:59 T-Sheet-- Draft Copy was scanned into [employer] and attached to record. gb Administered Medications: 08:38 Drug: LORazepam 0.5 mg [lorazepam 2 mg/mL injection solution (0.25 mL)] Route: IVP; kcs Site: left antecubital; 08:58 Drug: Multivitamins W-Minerals 1 tabs Route: PO; kcs 08:58 Drug: Ondansetron 4 mg [ondansetron HCl 2 mg/mL intravenous solution (2 mL)] Route: kcs IVP; Site: left antecubital; 09:05 Drug: Thiamine 100 mg [thiamine HCl (vitamin B1) 100 mg/mL injection solution (1 mL)] kcs {Note: slowly over 5 minutes.} Route: IVP; Site: left antecubital; 09:06 Drug: NS 0.9% 1000 ml [sodium chloride 0.9 % intravenous solution] Route: IV; Rate: kcs bolus; Site: left antecubital; Signatures: Dispatcher [employer] Barbara Matthews RN RN Stephanie Mccall, Reg Reg gb Shruthi Burnham, Reg Reg lg Maria L ConnorRN RN jo3 Delfina GomesRN RN nn1 Cecile Romero MD MD fg The chart was reviewed and I authenticate all verbal orders and agree with the evaluation and treatment provided.Attachments: 08:50 [facility] Payment Agreement lg 14:59 T-Sheet-- Draft Copy gb Chart Complete MTDD
--- NOTE | 2016-10-17 12:17 | EDDOCDS ---
Nurse's Notes [facility] Name: Jamil Elizalde Age: 31 yrs Sex: Male : 1985 Arrival Date: 10/15/2016 Time: 06:46 Bed 6 Private MD: Diagnosis: Alcohol abuse Presentation: 10/15 06:49 Presenting complaint: Patient states: he has not drank for 2 days, last night and now nn1 was having SOB, palpitations. Patient reports anxiety and feeling jittery, shaky. Patient reports nightmares last night. Presenting complaint: Patient states: he normally drank 5 beers/day. Adult Sepsis Screening: The patient does not have new or worsening altered mentation. Patient's respiratory rate is less than 22. Systolic blood pressure is greater than 100. Patient has a qSOFA score of 0- Negative Sepsis Screen. Suicide/Homicide risk assessment- the patient denies having any suicidal and/or homicidal ideations and does not present with any other emotional, behavioral or mental health complaints. 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 Transition of care: patient was not received from another setting of care. 06:49 Acuity: SHAKIRA Level 3 nn1 06:49 Method Of Arrival: Walkin/Carried/Asstd nn1 Triage Assessment: 06:54 General: Appears in no apparent distress, comfortable, Behavior is anxious, appropriate nn1 for age, cooperative. Pain: Denies pain. HIV screening NA for this visit Offered previously. Neurological: Level of Consciousness is awake, alert, obeys commands, Oriented to person, place, time. Cardiovascular:. Respiratory: Airway is patent Respiratory effort is even, Respiratory pattern is regular, symmetrical. Derm: Skin is pink, warm & dry. Historical: - Allergies: No known drug Allergies; - Home Meds: 1. Paxil 10 mg Oral tab 1.5 tabs once daily 2. amlodipine 5 mg Oral tab 1 tab twice a day 3. sevelamer carbonate 800 mg oral tab 1 tab 3 times per day - PMHx: Anxiety; kidney failure; Hypertension; Depression; PTSD; - PSHx: Cystectomy; wisdom teeth extraction; - Social history: Smoking status: Patient uses tobacco products, heavy tobacco smoker. No barriers to communication noted, The patient speaks fluent Lao, Speaks appropriately for age, Smoking status: Chewing Tobacco. - Family history: Not pertinent. - : The pt / caregiver states he / she is not on anticoagulants. Home medication list is obtained from the patient. - Exposure Risk Screening:: None identified. Screenin:24 Screening information is obtained from the patient. Fall risk: No risks identified. kcs Assistance ADL's: requires no assistance with activities of daily living. Abuse/DV Screen: The patient / caregiver reports he/she is: not in a situation that causes fear, pain or injury. Nutritional screening: No deficits noted. Advance Directives: Currently, there is no health care proxy. There is no living will. home support is adequate. Assessment: 07:30 General: Appears comfortable, well developed, well nourished, well groomed, Behavior is kcs cooperative, flat, pleasant. Pain: Denies pain. Neurological: Level of Consciousness is awake, alert. Respiratory: Airway is patent Respiratory effort is even, unlabored, Respiratory pattern is regular, symmetrical. GI: Abdomen is flat, Bowel sounds present X 4 quads. Abd is soft and non tender X 4 quads. Derm: Skin is intact, is healthy with good turgor, Skin is dry, Skin is normal. 08:40 Reassessment: Patient relaxed - texting on phone - escort at bedside.. kcs General: Appears comfortable, well developed, well nourished, well groomed. Pain: Denies pain. Derm: Skin is intact, is healthy with good turgor, Skin is dry, Skin is normal. 09:15 Reassessment: Patient remains alert, cooperative and pleasant. Requesting breakfast - kcs provider informed. Drinking po fluids and retaining. IV infusing. Respirations easy. Color = pink. escort remains at bedside.. 09:32 General: Appears in no apparent distress, comfortable, well developed, well nourished, jo3 well groomed, Behavior is appropriate for age, cooperative, pleasant. General: Pt states that he feels improved since arrival. Awaiting results with escort at bedside. Aware of plan of care . Neurological: Level of Consciousness is awake, alert, Oriented to person, place, time. Respiratory: Airway is patent Respiratory effort is even, unlabored. Derm: Skin is pink, warm & dry. 10:32 Reassessment: Patient appears in no apparent distress at this time. Patient denies pain jo3 at this time. Continues to rest on stretcher following breakfast meal. Escort at bedside. Awaiting results for disposition. Aware of plan of care . 11:12 General: Appears in no apparent distress, comfortable, Behavior is appropriate for age, jo3 cooperative, Smells of. Neurological: No deficits noted. Level of Consciousness is awake, alert, Oriented to person, place, time, Respiratory: Airway is patent Respiratory effort is even, unlabored. Derm: Skin is pink, warm & dry. Vital Signs: 06:55 BP 154 / 99; Pulse 79; Resp 18; Temp 99.3(TE); Pulse Ox 99% on R/A; Weight 97.52 kg; nn1 Height 72 in. (182.88 cm); Pain 0/10; 08:40 BP 116 / 64; Pulse 71; Resp 18; Pulse Ox 96% on R/A; Pain 0/10; kcs 09:28 BP 120 / 75 (auto/); Pulse 60; Resp 16; Pulse Ox 97% on R/A; jo3 11:12 BP 116 / 66; Pulse 59; Resp 14; Temp 98.9; Pulse Ox 98% on R/A; jo3 06:55 Body Mass Index 29.16 (97.52 kg, 182.88 cm) nn1 Vitals: 06:55 Log In Time: October 15, 2016 at 06:49. nn1 ED Course: 06:49 Patient visited by Divine Pereira Reg. hs2 06:49 Patient moved to Waiting hs2 06:51 Triage Initiated nn1 06:57 Patient moved to 6 nn1 07:25 Inserted saline lock: 20 gauge in left antecubital area The patient tolerated the kcs procedure well. 07:28 Acetaminophen Level Sent. kcs 07:29 Basic Metabolic Profile Sent. kcs 07:29 Complete Blood Count Sent. kcs 07:29 Ethyl Alcohol (ethanol) Sent. kcs 07:29 Liver Profile Sent. kcs 07:29 Salicylate Level Sent. kcs 07:29 Thyroid Stimulating Hormone Sent. kcs 07:30 The patient / caregiver is instructed regarding the plan of care and ED course. kcs 07:37 Drug Eval Toxicology ED Only Sent. kcs 08:00 Patient visited by Marga Leonard PCA. ct3 08:11 Cecile Romero MD is Attending Physician. fg 08:11 Patient visited by Cecile Romero MD. fg 08:17 [facility] Payment Agreement was scanned into [employer] and attached to record. lg 08:50 [facility] Payment Agreement was scanned into [employer] and attached to record. lg 09:13 Patient visited by Marga Leonard PCA. ct3 09:25 Report given to Lupis Connor RN. kcs 09:34 Patient visited by Maria L Connor,JACQUELIN. jo3 10:33 Patient visited by Maria L Connor,JACQUELIN. jo3 11:00 Semaj Osei [facility] is Referral Physician. fg 11:12 Discontinued IV lock intact, bleeding controlled, pressure dressing applied, No jo3 redness/swelling at site. Labs drawn. (by ED staff). Sent per order to lab. 11:17 No procedures done that require assistance. jo3 14:59 T-Sheet-- Draft Copy was scanned into [employer] and attached to record. gb Administered Medications: 08:38 Drug: LORazepam 0.5 mg [lorazepam 2 mg/mL injection solution (0.25 mL)] Route: IVP; [facility] Site: left antecubital; 08:58 Drug: Multivitamins W-Minerals 1 tabs Route: PO; kcs 08:58 Drug: Ondansetron 4 mg [ondansetron HCl 2 mg/mL intravenous solution (2 mL)] Route: kcs IVP; Site: left antecubital; 09:05 Drug: Thiamine 100 mg [thiamine HCl (vitamin B1) 100 mg/mL injection solution (1 mL)] [facility] {Note: slowly over 5 minutes.} Route: IVP; Site: left antecubital; 09:06 Drug: NS 0.9% 1000 ml [sodium chloride 0.9 % intravenous solution] Route: IV; Rate: kcs bolus; Site: left antecubital; Order Results: Lab Order: Acetaminophen Level; SPEC'M 10/15/16 07:24 Test: ACETAMINOPHEN LEVEL; Value: < 2.0; Range: 10.0-30.0; Abnormal: Below low normal; Units: UG/ML; Status: F Lab Order: Basic Metabolic Profile; SPEC'M 10/15/16 07:24 Test: GLUCOSE, FASTING; Value: 92; Range: 70-105; Units: MG/DL; Status: F Test: BLOOD UREA NITROGEN; Value: 14; Range: 7-18; Units: MG/DL; Status: F Test: CREATININE FOR GFR; Value: 1.20; Range: 0.70-1.30; Units: MG/DL; Status: F Test: GLOMERULAR FILTRATION RATE; Value: > 60.0; Range: >60; Status: F Test: SODIUM LEVEL; Value: 141; Range: 136-145; Units: MEQ/L; Status: F Test: POTASSIUM SERUM; Value: 4.0; Range: 3.5-5.1; Units: MEQ/L; Status: F Test: CHLORIDE LEVEL; Value: 107; Range: 98-107; Units: MEQ/L; Status: F Test: CARBON DIOXIDE LEVEL; Value: 23; Range: 21-32; Units: MEQ/L; Status: F Test: ANION GAP; Value: 11; Range: 8-16; Units: MEQ/L; Status: F Test: CALCIUM LEVEL; Value: 8.6; Range: 8.5-10.1; Units: MG/DL; Status: F Test Note: ; Units are mL/min/1.73 m2 Chronic Kidney Disease Staging per NKF: Stage I & II GFR >=60 Normal to Mildly Decreased Stage III GFR 30-59 Moderately Decreased Stage IV GFR 15-29 Severely Decreased Stage V GFR <15 Very Little GFR Left ESRD GFR <15 on GLUE CLAMP OPERATOR Lab Order: Complete Blood Count; [facility] 10/15/16 07:24 Test: WHITE BLOOD COUNT; Value: 7.5; Range: 4.0-10.0; Units: K/mm3; Status: F Test: RED BLOOD COUNT; Value: 5.29; Range: 4.30-6.10; Units: M/mm3; Status: F Test: HEMOGLOBIN; Value: 15.1; Range: 14.0-18.0; Units: g/dl; Status: F Test: HEMATOCRIT; Value: 44.8; Range: 42.0-52.0; Units: %; Status: F Test: MEAN CORPUSCULAR VOLUME; Value: 84.6; Range: 80.0-96.0; Units: fl; Status: F Test: MEAN CORPUSCULAR HEMOGLOBIN; Value: 28.5; Range: 27.0-33.0; Units: pg; Status: F Test: MEAN CORPUSCULAR HGB CONC; Value: 33.6; Range: 32.0-36.5; Units: g/dl; Status: F Test: RED CELL DISTRIBUTION WIDTH; Value: 12.7; Range: 11.5-14.5; Units: %; Status: F Test: PLATELET COUNT, AUTOMATED; Value: 209; Range: 150-450; Units: k/mm3; Status: F Lab Order: Drug Eval Toxicology ED Only; SPEC'M 10/15/16 07:35 Test: AMPHETAMINES LEVEL URINE; Value: NEGATIVE; Range: NEGATIVE; Status: F Test: BARBITURATES URINE; Value: NEGATIVE; Range: NEGATIVE; Status: F Test: BENZODIAZEPINES URINE; Value: NEGATIVE; Range: NEGATIVE; Status: F Test: CANNABINOIDS URINE; Value: NEGATIVE; Range: NEGATIVE; Status: F Test: COCAINE METABOLITE URINE; Value: NEGATIVE; Range: NEGATIVE; Status: F Test: METHADONE URINE; Value: NEGATIVE; Range: NEGATIVE; Status: F Test: OPIATES URINE; Value: NEGATIVE; Range: NEGATIVE; Status: F Test: TRICYCLIC ANTIDEPRESS URINE; Value: NEGATIVE; Range: NEGATIVE; Status: F Test Note: ; ALL PRESUMPTIVE POSITIVE FINDINGS ARE UNCONFIRMED NORMAL VALUES THRESHOLD IN NG/ML AMPHETAMINES 1000 METHAMPHETAMINES 1000 BARBITURATES 300 BENZODIAZEPINES 300 CANNABINOIDS (THC) 50 COCAINE METABOLITE 300 METHADONE 300 OPIATES 300 PHENCYCLIDINE 25 TRICYCLIC ANTIDEPRESSANTS 1000 RESULTS ARE FOR MEDICAL PURPOSES ONLY. ALL URINE SPECIMENS WILL BE SAVED FOR 3 DAYS. IF CONFIRMATION OF A PRESUMPTIVE POSTIVE SCREEN RESULT IS DESIRED, CALL CHEMISTRY ([phone]) AND REQUEST URINE TO BE SENT TO REFERENCE LAB. FOR A LIST OF CLOSELY RELATED COMPOUNDS PLEASE CALL THE LAB. Lab Order: Ethyl Alcohol (ethanol); SPEC'M 10/15/16 07:24 Test: ETHYL ALCOHOL (ETHANOL); Value: < 0.003; Range: 0.000-0.010; Units: %; Status: F Lab Order: Liver Profile; SPEC'M 10/15/16 07:24 Test: AST/SGOT; Value: 22; Range: 15-37; Units: U/L; Status: F Test: ALT/SGPT; Value: 22; Range: 12-78; Units: U/L; Status: F Test: ALKALINE PHOSPHATASE; Value: 85; Range: 45-117; Units: U/L; Status: F Test: BILIRUBIN,TOTAL; Value: 0.6; Range: 0.2-1.0; Units: MG/DL; Status: F Test: BILIRUBIN,DIRECT; Value: 0.1; Range: 0.0-0.2; Units: MG/DL; Status: F Test: TOTAL PROTEIN; Value: 8.1; Range: 6.4-8.2; Units: GM/DL; Status: F Test: ALBUMIN; Value: 4.1; Range: 3.2-5.2; Units: GM/DL; Status: F Test: ALBUMIN/GLOBULIN RATIO; Value: 1.03; Range: 1.00-1.93; Status: F Lab Order: Salicylate Level; SPEC'M 10/15/16 07:24 Test: SALICYLATE LEVEL; Value: < 1.7; Range: 5.0-30.0; Abnormal: Below low normal; Units: MG/DL; Status: F Lab Order: Thyroid Stimulating Hormone; SPEC'M 10/15/16 07:24 Test: THYROID STIMULATING HORMONE; Value: 1.620; Range: 0.358-3.740; Units: uIU/ML; Status: F Outcome: 11:01 Discharge ordered by Provider. fg 11:12 Discharge Assessment: Patient awake, alert and oriented x 3. No cognitive and/or jo3 functional deficits noted. Patient verbalized understanding of disposition instructions. patient administered narcotics - no. The following High Risk Discharge criteria are identified: None. Discharged to home ambulatory, with friend. Condition: stable Condition: improved. Discharge instructions given to patient, Instructed on discharge instructions, follow up and referral plans. medication usage, Demonstrated understanding of instructions, medications, Pt was receptive of discharge instructions/ teaching. No special radiology studies were completed. Property sent home with patient. 11:17 Patient left the ED. jo3 Signatures: Barbara Gutiérrez, RN RN Stephanie Mccall, Reg Reg gb Shruthi Burnham, Reg Reg lg Maria L Connor RN RN jo3 Marga Leonard, PRINTED PRODUCTS ASSEMBLER PRINTED PRODUCTS ASSEMBLER ct3 Delfina Gomes RN RN nn1 Cecile Romero MD MD Divine Pereira, Reg Reg hs2 Chart Complete MTDD
== END 2016-10-15 11:17 | disposition home or self-care (01) ==
LOC: M ED 06:46
DX: F10.239 Alcohol dependence with withdrawal, unspecified (principal); I10 Essential (primary) hypertension; F32.9 Major depressive disorder, single episode, unspecified; F41.9 Anxiety disorder, unspecified; F43.10 Post-traumatic stress disorder, unspecified; N28.9 Disorder of kidney and ureter, unspecified; Z79.899 Other long term (current) drug therapy; F17.210 Nicotine dependence, cigarettes, uncomplicated
CPT/HCPCS: 36415; 80048; 80076; 80306; 84443; 85027; 96374; 96375; 99284; G0480; J2060; J2405; J3411

== ENCOUNTER 2016-10-17 21:58 | Emergency (ER) | payer OTHER ==
[2016-10-17 22:44] LABS: MEAN CORPUSCULAR HEMOGLOBIN 28.7 pg (27.0-33.0); MEAN CORPUSCULAR HGB CONC 33.7 g/dl (32.0-36.5); MEAN CORPUSCULAR VOLUME 85.2 fl (80.0-96.0); RED CELL DISTRIBUTION WIDTH 13.2 % (11.5-14.5); WHITE BLOOD COUNT 9.2 K/mm3 (4.0-10.0)
[2016-10-17 22:55] LABS: AMPHETAMINES LEVEL URINE NEGATIVE (NEGATIVE); BENZODIAZEPINES URINE NEGATIVE (NEGATIVE); COCAINE METABOLITE URINE NEGATIVE (NEGATIVE); CONTROL LINE INT CTR LINE PRESENT; METHADONE URINE NEGATIVE (NEGATIVE); OPIATES URINE NEGATIVE (NEGATIVE); TRICYCLIC ANTIDEPRESS URINE NEGATIVE (NEGATIVE)
[2016-10-17 23:13] LABS: ALBUMIN 4.3 GM/DL (3.2-5.2); ALBUMIN/GLOBULIN RATIO 1.13 (1.00-1.93); ALKALINE PHOSPHATASE 77 U/L (45-117); ALT/SGPT 22 U/L (12-78); ANION GAP 8 MEQ/L (8-16); AST/SGOT 19 U/L (15-37); BILIRUBIN,DIRECT 0.2 MG/DL (0.0-0.2); BLOOD UREA NITROGEN 10 MG/DL (7-18); CALCIUM LEVEL 8.7 MG/DL (8.5-10.1); CARBON DIOXIDE LEVEL 28 MEQ/L (21-32); CHLORIDE LEVEL 104 MEQ/L (98-107); CREATININE FOR GFR 1.19 MG/DL (0.70-1.30); GLOMERULAR FILTRATION RATE > 60.0 (>60); GLUCOSE, FASTING 123 MG/DL (70-105); POTASSIUM SERUM 3.1 MEQ/L (3.5-5.1); SODIUM LEVEL 140 MEQ/L (136-145); TOTAL PROTEIN 8.1 GM/DL (6.4-8.2)
--- NOTE | 2016-10-18 06:37 | ECGEPIP ---
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
--- NOTE | 2016-10-18 06:49 | EDDOCDS ---
Physician Documentation [facility] Name: Jamil Elizalde Age: 31 yrs Sex: Male : 1985 Arrival Date: 10/17/2016 Time: 21:58 Bed OBSERVATION Private MD: [place] [facility]: 10/18/16 04:18 Transfer ordered to [facility]. Diagnosis is Homicidal and suicidal ideations. - Reason for transfer: Higher level of care. - Accepting physician is Dr. Webster\Tripp\. - Condition is Stable. - Problem is an ongoing problem. - Symptoms are unchanged. HPI: 10/17 22:15 This 31 yrs old Male presents to ER with complaints of Suicidal Ideation, pc Homicidal Ideation. 22:15 The history is obtained from the patient. At their worst, the symptoms were moderate. pc In the emergency department, the symptoms are unchanged. He states he has thoughts of wanting to rape and kill a RN in our IMHU unit. He is an alcoholic with at least 5 beers/day. 22:37 The patient has experienced similar episodes in the past, several times. The patient pc has been recently seen at the [facility], this week, for alcohol related issues . Historical: - Allergies: No known drug Allergies; - Home Meds: 1. amlodipine 5 mg Oral tab 1 tab twice a day 2. Paxil 10 mg Oral tab 1.5 tabs once daily 3. sevelamer carbonate 800 mg oral tab 1 tab 3 times per day 4. lorazepam 0.5 mg Oral tab 1 tab as needed - PMHx: Anxiety; Depression; Hypertension; kidney failure; PTSD; - PSHx: Cystectomy; wisdom teeth extraction; circumcision; - The history from nurses notes was reviewed: but there are no nursing notes, or only partial notes available at the time of my charting. - Social history: Smoking status: Patient uses tobacco products, heavy tobacco smoker. Patient uses alcohol on a daily basis. chewing tobacco. No barriers to communication noted, The patient speaks fluent [place], Speaks appropriately for age. - Hospitalizations: : No recent hospitalization is reported. - : The pt / caregiver states he / she is not on anticoagulants. Home medication list is obtained from the patient. - Immunization history:: All immunizations up-to-date. - Exposure Risk Screening:: None identified. - Family history: Not pertinent. - Social history:: the patient is a non-smoker, the patient drinks alcohol, including recently. ROS: 22:37 All systems are negative except as listed. The psychiatric and neurological components pc are also addressed in the HPI. Exam: 22:37 General Appearance: alert, no acute distress. pc 22:37 ENT: ear, nose and throat normal, pharynx normal. 22:37 Eyes: pupils equal, round and reactive to light, extraocular motions intact. 22:37 Neck: The exam reveals no acute abnormalities. ROM is normal and painless. No nuchal rigidity is noted.. 22:37 Respiratory: breathing is even and unlabored, breath sounds are normal. 22:37 Cardiovascular: regular pulse rate, regular heart rhythm, normal heart sounds, equal and full pulses bilaterally. 22:37 Abdomen: soft, non-tender, no organomegaly, normal bowel sounds. 22:37 Skin: skin color is normal, warm, dry, no rashes, no lesions. 22:37 Extremities: The extremities have a grossly normal appearance, are non-tender, without acute ROM abnormalities. 22:37 Neuro: alert, oriented to person, place and time, cranial nerves normal as tested, no motor deficits, no sensory deficits. 22:37 Psych: mood is angry, affect is animated. Vital Signs: 22:01 BP 152 / 89; Pulse 79; Resp 16; Temp 97.0(O); Pulse Ox 100% on R/A; Weight 97.52 kg / sew 214.99 lbs; Height 72 in. (182.88 cm); Pain 0/10; 10/18 06:45 BP 131 / 76; Pulse 76; Resp 16; Temp 97.4(O); Pulse Ox 97% ; Pain 0/10; sls1 10/17 22:01 Body Mass Index 29.16 (97.52 kg, 182.88 cm) sew MDM: 10/17 22:06 Consult PFS/PSA/Neurophysiologist: Patient's case requires discussion with on-call pc Psychiatrist ordered. 22:06 PSA/PFS to call Nursing Construction Lineman, to enter patient data on [place] Safe [place] if patient pc involuntarily admitted or transferred for SI or HI ordered. 22:06 Confirm accurate psychiatric medication list and times of last dosage ordered. pc 22:06 Detain Pt Until Medically/PFS Cleared ordered. pc 22:07 Acetaminophen Level Ordered. EDMS 22:07 Basic Metabolic Profile Ordered. EDMS 22:07 Complete Blood Count Ordered. EDMS 22:07 Drug Eval Toxicology ED Only Ordered. EDMS 22:07 Ethyl Alcohol (ethanol) Ordered. EDMS 22:07 Liver Profile Ordered. EDMS 22:07 Salicylate Level Ordered. EDMS 22:07 Thyroid Stimulating Hormone Ordered. EDMS 22:37 Differential diagnosis: homicidal ideation, Substance Abuse. Plan: labs, PFS eval. pc 22:50 Complete Blood Count Reviewed. pc 23:01 Drug Eval Toxicology ED Only Reviewed. pc 23:32 Financial registration complete. zo 23:32 Acetaminophen Level Reviewed. pc 23:32 Basic Metabolic Profile Reviewed. pc 23:32 Liver Profile Reviewed. pc 23:32 Salicylate Level Reviewed. pc 23:32 Ethyl Alcohol (ethanol) Reviewed. pc 23:32 Thyroid Stimulating Hormone Reviewed. pc 23:32 [facility] Payment Agreement was scanned into [employer] and attached to record. zo 10/18 00:44 Consult PFS/PSA/Neurophysiologist: Patient's case requires discussion with on-call [facility] Psychiatrist complete. 00:44 PSA/PFS to call Nursing Construction Lineman, to enter patient data [place] Safe [place] if patient hm1 involuntarily admitted or transferred for SI or HI complete. 01:39 ECG WITH READING ER PHYS+CARDIAG ordered. EDMS Signatures: Dispatcher [employer] EDAlexi Coffman MD MD pc Olin, Zoeann zo Maynard, Matthew, DO mm11 Kimmy Mcadams, PSA PSA 1 Darby Jackson RN RN [facility] Rancho Murphy RN RN jmb The chart was reviewed and I authenticate all verbal orders and agree with the evaluation and treatment provided.Attachments: 10/17 23:32 [facility] [place] MTDD
--- NOTE | 2016-10-18 06:49 | EDDOCDS ---
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 Multani, Mikala, PSA PSA jfb Kimmy Mcadams, PSA PSA hm1 Kris Prado Shannon, RN RN sls1 Amalia Browne Joshua, RN RN jmb Alma Fonseca LPN LPN Lauren LinderRN RN [facility] Jerson Davila, AYE PROFESSOR OF PATHOLOGY reyes Corrections: (The following items were deleted from the chart) 10/17 22:55 22:48 Presenting complaint: Patient states: Patient reports having had alcohol today. b Patient reports that he drinks 5 beers daily when he has to work and anywhere between 12 beers and a case on weekend days. Patient reports that he was placed on alcohol withdrawal where he is not to have alcohol by but they do not know he has drank today. [facility] MTDD
--- NOTE | 2016-10-20 07:48 | EDDOCDS ---
Physician Documentation [facility] Name: Jamil Elizalde Age: 31 yrs Sex: Male : 1985 Arrival Date: 10/17/2016 Time: 21:58 Bed OBSERVATION Private MD: Monik [facility] Disposition: 10/18/16 04:18 Transfer ordered to [facility]. Diagnosis is Homicidal and suicidal ideations. - Reason for transfer: Higher level of care. - Accepting physician is Dr. Webster\Tripp\. - Condition is Stable. - Problem is an ongoing problem. - Symptoms are unchanged. HPI: 10/17 22:15 This 31 yrs old Male presents to ER with complaints of Suicidal Ideation, pc Homicidal Ideation. 22:15 The history is obtained from the patient. At their worst, the symptoms were moderate. pc In the emergency department, the symptoms are unchanged. He states he has thoughts of wanting to rape and kill a RN in our IMHU unit. He is an alcoholic with at least 5 beers/day. 22:37 The patient has experienced similar episodes in the past, several times. The patient pc has been recently seen at the [facility], this week, for alcohol related issues . Historical: - Allergies: No known drug Allergies; - Home Meds: 1. amlodipine 5 mg Oral tab 1 tab twice a day 2. Paxil 10 mg Oral tab 1.5 tabs once daily 3. sevelamer carbonate 800 mg oral tab 1 tab 3 times per day 4. lorazepam 0.5 mg Oral tab 1 tab as needed - PMHx: Anxiety; Depression; Hypertension; kidney failure; PTSD; - PSHx: Cystectomy; wisdom teeth extraction; circumcision; - The history from nurses notes was reviewed: but there are no nursing notes, or only partial notes available at the time of my charting. - Social history: Smoking status: Patient uses tobacco products, heavy tobacco smoker. Patient uses alcohol on a daily basis. chewing tobacco. No barriers to communication noted, The patient speaks fluent [place], Speaks appropriately for age. - Hospitalizations: : No recent hospitalization is reported. - : The pt / caregiver states he / she is not on anticoagulants. Home medication list is obtained from the patient. - Immunization history:: All immunizations up-to-date. - Exposure Risk Screening:: None identified. - Family history: Not pertinent. - Social history:: the patient is a non-smoker, the patient drinks alcohol, including recently. ROS: 22:37 All systems are negative except as listed. The psychiatric and neurological components pc are also addressed in the HPI. Exam: 22:37 General Appearance: alert, no acute distress. pc 22:37 ENT: ear, nose and throat normal, pharynx normal. 22:37 Eyes: pupils equal, round and reactive to light, extraocular motions intact. 22:37 Neck: The exam reveals no acute abnormalities. ROM is normal and painless. No nuchal rigidity is noted.. 22:37 Respiratory: breathing is even and unlabored, breath sounds are normal. 22:37 Cardiovascular: regular pulse rate, regular heart rhythm, normal heart sounds, equal and full pulses bilaterally. 22:37 Abdomen: soft, non-tender, no organomegaly, normal bowel sounds. 22:37 Skin: skin color is normal, warm, dry, no rashes, no lesions. 22:37 Extremities: The extremities have a grossly normal appearance, are non-tender, without acute ROM abnormalities. 22:37 Neuro: alert, oriented to person, place and time, cranial nerves normal as tested, no motor deficits, no sensory deficits. 22:37 Psych: mood is angry, affect is animated. Vital Signs: 22:01 BP 152 / 89; Pulse 79; Resp 16; Temp 97.0(O); Pulse Ox 100% on R/A; Weight 97.52 kg / sew 214.99 lbs; Height 72 in. (182.88 cm); Pain 0/10; 10/18 06:45 BP 131 / 76; Pulse 76; Resp 16; Temp 97.4(O); Pulse Ox 97% ; Pain 0/10; sls1 10/17 22:01 Body Mass Index 29.16 (97.52 kg, 182.88 cm) sew MDM: 10/17 22:06 Consult PFS/PSA/Performance Tester: Patient's case requires discussion with on-call pc Psychiatrist ordered. 22:06 PSA/PFS to call Nursing Counter Molder, to enter patient data on [place] Safe [place] if patient pc involuntarily admitted or transferred for SI or HI ordered. 22:06 Confirm accurate psychiatric medication list and times of last dosage ordered. pc 22:06 Detain Pt Until Medically/PFS Cleared ordered. pc 22:07 Acetaminophen Level Ordered. EDMS 22:07 Basic Metabolic Profile Ordered. EDMS 22:07 Complete Blood Count Ordered. EDMS 22:07 Drug Eval Toxicology ED Only Ordered. EDMS 22:07 Ethyl Alcohol (ethanol) Ordered. EDMS 22:07 Liver Profile Ordered. EDMS 22:07 Salicylate Level Ordered. EDMS 22:07 Thyroid Stimulating Hormone Ordered. EDMS 22:37 Differential diagnosis: homicidal ideation, Substance Abuse. Plan: labs, PFS eval. pc 22:50 Complete Blood Count Reviewed. pc 23:01 Drug Eval Toxicology ED Only Reviewed. pc 23:32 Financial registration complete. zo 23:32 Acetaminophen Level Reviewed. pc 23:32 Basic Metabolic Profile Reviewed. pc 23:32 Liver Profile Reviewed. pc 23:32 Salicylate Level Reviewed. pc 23:32 Ethyl Alcohol (ethanol) Reviewed. pc 23:32 Thyroid Stimulating Hormone Reviewed. pc 23:32 [facility] Payment Agreement was scanned into [employer] and attached to record. zo 10/18 00:44 Consult PFS/PSA/Performance Tester: Patient's case requires discussion with on-call [facility] Psychiatrist complete. 00:44 PSA/PFS to call Nursing Counter Molder, to enter patient data [place] if patient hm1 involuntarily admitted or transferred for SI or HI complete. 01:39 ECG WITH READING ER PHYS+CARDIAG ordered. EDMS 10/19 10:17 T-Sheet-- Draft Copy was scanned into [employer] and attached to record. gb Signatures: Dispatcher [employer] EDNV Alexi Lehman MD MD pc Stephanie Ovalle, Reg Reg gb Christian Summers Matthew, DO mm11 Kimmy Mcadams, PSA PSA 1 Darby Jackson RN RN sls1 Rancho Murphy RN RN reyesb The chart was reviewed and I authenticate all verbal orders and agree with the evaluation and treatment provided.Attachments: 10/17 23:32 [facility] Payment Agreement zo 10/19 10:17 T-Sheet-- Draft Copy gb Chart Complete MTDD
--- NOTE | 2016-10-20 07:48 | EDDOCDS ---
Physician Documentation [facility] Name: Jamil Elizalde Age: 31 yrs Sex: Male : 1985 Arrival Date: 10/17/2016 Time: 21:58 Bed OBSERVATION Private MD: Monik [facility] Disposition: 10/18/16 04:18 Transfer ordered to [facility]. Diagnosis is Homicidal and suicidal ideations. - Reason for transfer: Higher level of care. - Accepting physician is Dr. Webster\Tripp\. - Condition is Stable. - Problem is an ongoing problem. - Symptoms are unchanged. HPI: 10/17 22:15 This 31 yrs old Male presents to ER with complaints of Suicidal Ideation, pc Homicidal Ideation. 22:15 The history is obtained from the patient. At their worst, the symptoms were moderate. pc In the emergency department, the symptoms are unchanged. He states he has thoughts of wanting to rape and kill a RN in our IMHU unit. He is an alcoholic with at least 5 beers/day. 22:37 The patient has experienced similar episodes in the past, several times. The patient pc has been recently seen at the [facility], this week, for alcohol related issues . Historical: - Allergies: No known drug Allergies; - Home Meds: 1. amlodipine 5 mg Oral tab 1 tab twice a day 2. Paxil 10 mg Oral tab 1.5 tabs once daily 3. sevelamer carbonate 800 mg oral tab 1 tab 3 times per day 4. lorazepam 0.5 mg Oral tab 1 tab as needed - PMHx: Anxiety; Depression; Hypertension; kidney failure; PTSD; - PSHx: Cystectomy; wisdom teeth extraction; circumcision; - The history from nurses notes was reviewed: but there are no nursing notes, or only partial notes available at the time of my charting. - Social history: Smoking status: Patient uses tobacco products, heavy tobacco smoker. Patient uses alcohol on a daily basis. chewing tobacco. No barriers to communication noted, The patient speaks fluent [place], Speaks appropriately for age. - Hospitalizations: : No recent hospitalization is reported. - : The pt / caregiver states he / she is not on anticoagulants. Home medication list is obtained from the patient. - Immunization history:: All immunizations up-to-date. - Exposure Risk Screening:: None identified. - Family history: Not pertinent. - Social history:: the patient is a non-smoker, the patient drinks alcohol, including recently. ROS: 22:37 All systems are negative except as listed. The psychiatric and neurological components pc are also addressed in the HPI. Exam: 22:37 General Appearance: alert, no acute distress. pc 22:37 ENT: ear, nose and throat normal, pharynx normal. 22:37 Eyes: pupils equal, round and reactive to light, extraocular motions intact. 22:37 Neck: The exam reveals no acute abnormalities. ROM is normal and painless. No nuchal rigidity is noted.. 22:37 Respiratory: breathing is even and unlabored, breath sounds are normal. 22:37 Cardiovascular: regular pulse rate, regular heart rhythm, normal heart sounds, equal and full pulses bilaterally. 22:37 Abdomen: soft, non-tender, no organomegaly, normal bowel sounds. 22:37 Skin: skin color is normal, warm, dry, no rashes, no lesions. 22:37 Extremities: The extremities have a grossly normal appearance, are non-tender, without acute ROM abnormalities. 22:37 Neuro: alert, oriented to person, place and time, cranial nerves normal as tested, no motor deficits, no sensory deficits. 22:37 Psych: mood is angry, affect is animated. Vital Signs: 22:01 BP 152 / 89; Pulse 79; Resp 16; Temp 97.0(O); Pulse Ox 100% on R/A; Weight 97.52 kg / sew 214.99 lbs; Height 72 in. (182.88 cm); Pain 0/10; 10/18 06:45 BP 131 / 76; Pulse 76; Resp 16; Temp 97.4(O); Pulse Ox 97% ; Pain 0/10; sls1 10/17 22:01 Body Mass Index 29.16 (97.52 kg, 182.88 cm) sew MDM: 10/17 22:06 Consult PFS/PSA/Chief Knowledge Officer: Patient's case requires discussion with on-call pc Psychiatrist ordered. 22:06 PSA/PFS to call Nursing Upholsterer Apprentice, to [place] data [place] if patient pc involuntarily admitted or transferred for SI or HI ordered. 22:06 Confirm accurate psychiatric medication list and times of last dosage ordered. pc 22:06 Detain Pt Until Medically/PFS Cleared ordered. pc 22:07 Acetaminophen Level Ordered. EDMS 22:07 Basic Metabolic Profile Ordered. EDMS 22:07 Complete Blood Count Ordered. EDMS 22:07 Drug Eval Toxicology ED Only Ordered. EDMS 22:07 Ethyl Alcohol (ethanol) Ordered. EDMS 22:07 Liver Profile Ordered. EDMS 22:07 Salicylate Level Ordered. EDMS 22:07 Thyroid Stimulating Hormone Ordered. EDMS 22:37 Differential diagnosis: homicidal ideation, Substance Abuse. Plan: labs, PFS eval. pc 22:50 Complete Blood Count Reviewed. pc 23:01 Drug Eval Toxicology ED Only Reviewed. pc 23:32 Financial registration complete. zo 23:32 Acetaminophen Level Reviewed. pc 23:32 Basic Metabolic Profile Reviewed. pc 23:32 Liver Profile Reviewed. pc 23:32 Salicylate Level Reviewed. pc 23:32 Ethyl Alcohol (ethanol) Reviewed. pc 23:32 Thyroid Stimulating Hormone Reviewed. pc 23:32 [facility] Payment Agreement was scanned into [employer] and attached to record. zo 10/18 00:44 Consult PFS/PSA/Chief Knowledge Officer: Patient's case requires discussion with on-call [facility] Psychiatrist complete. 00:44 PSA/PFS to call Nursing Upholsterer Apprentice, to [place] if patient hm1 involuntarily admitted or transferred for SI or HI complete. 01:39 ECG WITH READING ER PHYS+CARDIAG ordered. EDMS 10/19 10:17 T-Sheet-- Draft Copy was scanned into [employer] and attached to record. gb Signatures: Dispatcher [employer] EDIA Alexi Lehman MD MD pc Stephanie Ovalle, Reg Reg gb Christian Summers Matthew, DO mm11 Kimmy Mcadams, PSA PSA 1 Darby Jackson RN RN sls1 Rancho Murphy RN RN reyesb The chart was reviewed and I authenticate all verbal orders and agree with the evaluation and treatment provided.Attachments: 10/17 23:32 [facility] Payment Agreement zo 10/19 10:17 T-Sheet-- Draft Copy gb Chart Complete MTDD
--- NOTE | 2016-10-20 07:49 | EDDOCDS ---
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 Barnhardt, Gloria, Colin Reg Christian Allen Matthew, DO DO mm11 Multani, Mikala, PSA PSA jfb Kimmy Mcadams, PSA PSA hm1 Kris Prado Shannon, RN RN sls1 Amalia Browne JoshuaRN RN reyesb Alma Fonseca,SUPERVISOR POULTRY HATCHERY SUPERVISOR POULTRY HATCHERY Lauren BillsRN RN kas2 Jerson Davila, AYE KNIT GOODS CUTTER HAND jmv Corrections: (The following items were deleted from the chart) 10/17 22:55 22:48 Presenting complaint: Patient states: Patient reports having had alcohol today. b Patient reports that he drinks 5 beers daily when he has to work and anywhere between 12 beers and a case on weekend days. Patient reports that he was placed on alcohol withdrawal where he is not to have alcohol by but they do not know he has drank today. hilary Chart Complete MTDD
== END 2016-10-18 06:47 ==
LOC: M ED 21:58
DX: R45.850 Homicidal ideations (principal); R45.851 Suicidal ideations; F41.9 Anxiety disorder, unspecified; F32.9 Major depressive disorder, single episode, unspecified; I12.9 Hypertensive chronic kidney disease with stage 1 through stage 4 chronic kidney disease, or unspecified chronic kidney disease; N18.9 Chronic kidney disease, unspecified; F43.10 Post-traumatic stress disorder, unspecified; F17.210 Nicotine dependence, cigarettes, uncomplicated; Z79.899 Other long term (current) drug therapy
CPT/HCPCS: 36415; 80048; 80076; 80306; 84443; 85027; 93005; 99285; G0480

== ENCOUNTER 2017-04-23 12:40 | Inpatient (IN) | payer OTHER ==
[~2017-04-23] VITALS: Ht 182.9 cm; Wt 97.8 kg
[~2017-04-23 12:40] MED LIST changes: -NAPR250T2 PO; +NAPR250T4 PO; +PAXI20TA29 PO; -PAXI20TA3 PO
[2017-04-23] MEDS ORDERED: LORazepam 1 MG TAB PO STA (13:53)
[2017-04-23 14:15] LABS: MEAN CORPUSCULAR HEMOGLOBIN 29.6 pg (27.0-33.0); MEAN CORPUSCULAR HGB CONC 34.8 g/dl (32.0-36.5); MEAN CORPUSCULAR VOLUME 85.1 fl (80.0-96.0); WHITE BLOOD COUNT 7.2 K/mm3 (4.0-10.0)
[2017-04-23 14:33] LABS: METHADONE URINE NEGATIVE (NEGATIVE)
[2017-04-23 14:43] LABS: ALBUMIN 4.2 GM/DL (3.2-5.2); ALKALINE PHOSPHATASE 70 U/L (45-117); ALT/SGPT 29 U/L (12-78); ANION GAP 9 MEQ/L (8-16); AST/SGOT 24 U/L (15-37); BILIRUBIN,DIRECT 0.2 MG/DL (0.0-0.2); BILIRUBIN,TOTAL 1.3 MG/DL (0.2-1.0); BLOOD UREA NITROGEN 14 MG/DL (7-18); CALCIUM LEVEL 8.9 MG/DL (8.5-10.1); CARBON DIOXIDE LEVEL 27 MEQ/L (21-32); CHLORIDE LEVEL 104 MEQ/L (98-107); CREATININE FOR GFR 1.06 MG/DL (0.70-1.30); GLOMERULAR FILTRATION RATE > 60.0 (>60); GLUCOSE, FASTING 104 MG/DL (70-105); POTASSIUM SERUM 4.3 MEQ/L (3.5-5.1); SODIUM LEVEL 140 MEQ/L (136-145); TOTAL PROTEIN 7.7 GM/DL (6.4-8.2)
[2017-04-23 20:18] VITALS: BP 150/98
[2017-04-23] MEDS ORDERED: MOM 30ML SUSPENSION UDC PO PRN (21:15)
[2017-04-23] MEDS ORDERED: traZODone 50 MG TAB PO PRN (21:15)
[2017-04-23] MEDS ORDERED: OXAZEPAM 15 MG CAP PO PRN (21:15)
[2017-04-23] MEDS ORDERED: MAALOX 30 ML SUSP *UDC PO PRN (21:15)
[2017-04-23] MEDS ORDERED: NICOTINE 21MG/24HR 1 EA TRANSDERMAL TD ONE (21:45)
[2017-04-23] MEDS: OXAZEPAM 15 MG CAP PO SCH (21:55)
[2017-04-24 06:39] VITALS: BP 122/88
[2017-04-24] MEDS: OXAZEPAM 15 MG CAP PO SCH ×2 (08:41→21:34)
[2017-04-24] MEDS: NICOTINE 21MG/24HR 1 EA TRANSDERMAL TD SCH (08:41)
[2017-04-24] MEDS: ACETAMINOPHEN TAB 650MG DOSE (2X325MG) PO PRN ×2 (08:42→21:35)
[2017-04-24 12:00] VITALS: BP 130/65
[2017-04-24 18:00] VITALS: BP 128/57
[2017-04-25 06:51] VITALS: BP 125/77
[2017-04-25] MEDS: OXAZEPAM 15 MG CAP PO SCH ×2 (08:26→21:58)
[2017-04-25] MEDS: NICOTINE 21MG/24HR 1 EA TRANSDERMAL TD SCH (08:26)
[2017-04-25 18:00] VITALS: BP 125/69
[2017-04-25] MEDS: ACETAMINOPHEN TAB 650MG DOSE (2X325MG) PO PRN (22:00)
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
[2017-04-26 06:28] VITALS: BP 128/72
[2017-04-26] MEDS: NICOTINE 21MG/24HR 1 EA TRANSDERMAL TD SCH (08:42)
[2017-04-26] MEDS: OXAZEPAM 15 MG CAP PO SCH ×2 (08:42→20:48)
[2017-04-26] MEDS: ACETAMINOPHEN TAB 650MG DOSE (2X325MG) PO PRN (08:43)
[2017-04-26] MEDS: ACAMPROSATE CALCIUM 333 MG TABLET (CAMPRAL) PO SCH ×3 (09:00→20:48)
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
[2017-04-26 18:00] VITALS: BP 124/76
--- NOTE | 2017-04-26 21:50 | HPE ---
DATE OF ADMISSION: 04/23/2017 HISTORY OF PRESENT ILLNESS: Please refer to psychiatric history and evaluation for further details on this admission. This examination history is intended for medical issues, which may need treatment, followup and consult on this 32-year-old male. PRIMARY CARE PROVIDER: [facility] ALLERGIES: No known drug allergies. PAST MEDICAL HISTORY: Depression. PAST SURGICAL HISTORY: Benign cyst removed from upper back, wisdom teeth extractions, circumcision at 19 years old. SOCIAL HISTORY: Resides at [place]. He is . 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 He smokes one pack of cigarettes per day. He drinks 12 to 16 alcoholic drinks per night. No illicit drug use. Denies heavy drug use. HOME MEDICATIONS: None. LABORATORY STUDIES: White blood count (WBC) 7.2, hemoglobin 14.5, hematocrit 41.6, platelets 238, electrolytes normal. BUN 14, creatine 1.06, total bilirubin 1.3. Toxicology screen negative. FAMILY HISTORY: Mother alive. History of alcoholism. Father unknown. 10 systems review was done, was unremarkable. PHYSICAL EXAMINATION: 32-year-old cooperative male in no acute distress. Height 72 inches, weight 97.8 kg, body mass index (BMI) 29.2. Blood pressure 128/57, pulse 68, respirations 16, temperature 98.2. The patient is alert and oriented times three. Pupils equal and reactive to light. Extraocular muscles intact. Cornea and sclerae clear . Conjunctivae normal. No facial asymmetry. Pharynx, tongue, gums pink and moist. Tongue is midline. Neck is supple, without lymphadenopathy. No thyromegaly. No goiter. Carotids 2+ without bruits. Chest clear to auscultation, without wheeze or retraction. Heart is regular. Abdomen benign. Bowel sounds positive. Genitourinary ()/Rectal not done. Extremities show equal strength, full range of motion. No cyanosis, clubbing or edema. Peripheral pulses equal and palpable bilaterally. Skin is warm and dry. Cranial nerves III-XII grossly intact. IMPRESSION/PLAN: 1. Psychiatric plan per psychiatry. 2. Nicotine dependence patch available. 3. Alcohol abuse, monitor withdrawal. 4. Continue followup by primary care provider on discharge at [facility].
--- NOTE | 2017-04-26 22:03 | MHIPN ---
DATE: 04/25/2017 CHIEF COMPLAINT: Feels better. SUBJECTIVE: Seen for followup in the presence of staff. Says feels better, and that he had a better night, feels less anxious and less depressed. No withdrawal symptoms as such, no nausea, no vomiting. Denies any cravings for alcohol, but he is concerned he may resume it again once he leaves. Says has been told that the [facility] ([facility]) program at [facility] may see him sooner than previously scheduled. He is due to see them sometime later this week. MENTAL STATUS EXAMINATION: He is sitting up in bed. He is cooperative. He is coherent. No agitation. Appears relatively relaxed, possibly mildly anxious. He denies any suicidal thoughts or intents. No homicidal ideas or intents. Currently, no evidence of any psychosis. His judgment is fair, as is his insight. ASSESSMENT: Other specified depressive disorder. Rule out major depressive disorder. Alcohol use disorder. PLAN: Continue current care and observations. He has declined using an antidepressant, is concerned about sexual side effects, he was given information on Wellbutrin as well Viibryd. He is to be encouraged to participate in activities in the unit. He will followup with [facility] upon discharge. He will be seeing his assigned psychiatrist in the treatment team tomorrow. The risks of his taking up alcohol again, and his judgment being clouded, to the point where he may try to harm himself, as evidenced recently, is also discussed. VITAL SIGNS: Blood pressure 125/77, pulse 55, temperature 97.1.
[2017-04-27 07:25] VITALS: BP 126/71
[2017-04-27] MEDS: NICOTINE 21MG/24HR 1 EA TRANSDERMAL TD SCH (08:46)
[2017-04-27] MEDS: OXAZEPAM 15 MG CAP PO SCH (08:47)
[2017-04-27] MEDS: ACAMPROSATE CALCIUM 333 MG TABLET (CAMPRAL) PO SCH (08:47)
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
== END 2017-04-27 15:20 | disposition home or self-care (01) | DRG 881 ==
LOC: M ED 12:40 → M ED INP 18:06 → M PSY 20:10
PROVIDERS: ADMIT Psychiatry & Neurology Psychiatry; ATTEND Psychiatry & Neurology Psychiatry
DX: F32.9 Major depressive disorder, single episode, unspecified (principal); F10.20 Alcohol dependence, uncomplicated; F17.210 Nicotine dependence, cigarettes, uncomplicated; Z63.0 Problems in relationship with spouse or partner; Z63.4 Disappearance and death of family member; Z91.5 Personal history of self-harm